=== PATIENT | male | born 1960 | race African-American/Black ===

== ENCOUNTER 2016-05-24 13:40 | Inpatient (IN) | payer OTHER ==
[~2016-05-24] VITALS: Ht 188 cm; Wt 79.6 kg
[2016-05-24] VITALS (12 sets, daily range): BP systolic 91–132; BP diastolic 68–89
[~2016-05-24 13:40] MED LIST: ALBU2.5V5 NEB; LISI-334 PO; LISI1TAB3 PO; PRED-220 PO; PRED5TAB PO; VENTOLIN HFA18 GM INH
[2016-05-24] MEDS ORDERED: 0.9 % SODIUM CHLORIDE 10 ML DISP.SYRIN. IV PRN (14:30)
[2016-05-24] MEDS ORDERED: ONDANSETRON PF 4 MG/2 ML VIAL. IV PRN ×2 (14:30→16:15)
[2016-05-24] MEDS ORDERED: CALCIUM CARBONATE 500 MG TAB.CHEW PO PRN (14:30)
[2016-05-24] MEDS: HALOPERIDOL LACT 5 MG/ML VIAL. IVP PRN ×2 (14:37→23:18)
[2016-05-24] MEDS ORDERED: CLONIDINE HCL 0.1 MG TABLET PO PRN (14:45)
[2016-05-24] MEDS ORDERED: LISI40TA PO (15:20)
[2016-05-24] MEDS ORDERED: POTA20TA4 PO (15:20)
[2016-05-24] MEDS ORDERED: HYDR-2679 PO (15:21)
[2016-05-24] MEDS: METRONIDAZOLE 500mg PREMIX 100 ML IV SCH ×2 (15:24→22:25)
--- NOTE | 2016-05-24 16:00 | HP ---
ADMIT DATE: 05/24/2016 CHIEF COMPLAINT: Ascites secondary to alcoholic cirrhosis, C. diff colitis, alcohol withdrawal. HISTORY OF PRESENT ILLNESS: The patient is a 56-year-old gentleman who initially presented to the Emergency Room at [facility] with confusion and abdominal pain due to massive ascites. He was admitted there, eventually, ascites was tapped with almost 3 liters withdrawn. However, the patient developed diarrhea, which were shown to be C. diff positive. He was transferred to [facility] for intensive care. PAST MEDICAL HISTORY: Alcoholic cirrhosis, recurrent ascites, hypertension, COPD. FAMILY HISTORY: Unknown, patient cannot elaborate secondary to confusion. SOCIAL HISTORY: Lives with his . According to him, drinks 2-1/2 liters of gin a day, quit "2 days ago." Tobacco use, 2 packs a day according to [facility] records. ALLERGIES: Penicillin and sulfa. MEDICATIONS: Reconciled with meds at [facility]. REVIEW OF SYSTEMS: The patient denies pain, falls asleep during questioning. PHYSICAL EXAMINATION: VITAL SIGNS: Currently show blood pressure of 109/76, pulse at 104. He is afebrile. GENERAL: This is a lethargic, partially obtunded 56-year-old gentleman, well nourished. HEENT: Shows positive icterus. NECK: Supple. LUNGS: Clear anteriorly. CARDIOVASCULAR: Regular rate and rhythm. ABDOMEN: Mildly distended, soft, nontender. EXTREMITIES: Show no edema. SKIN: Warm, soft and dry. LABORATORY DATA: From [facility] were reviewed. ASSESSMENT AND PLAN: The patient is a 56-year-old gentleman with alcoholic cirrhosis, ongoing alcohol abuse and now C. diff. 1. For C. diff colitis, he will be started on Flagyl t.i.d. Isolation precautions. 2. Alcoholic withdrawal in progress. CIWA protocol has been started. He will receive Haldol p.r.n. as well. May need one-to-one sitter due to restlessness and agitation. 3. Alcoholic cirrhosis is severe with history of varices, recurrent ascites as well as pancytopenia. We will have to monitor with low platelets. 4. The patient had a fairly high D-dimer at [facility] with a nondiagnostic CTA. Lovenox had been started empirically at therapeutic doses. VQ scan by report has been low probability. We will have to ascertain the results. In either case, current platelet count of 49 precludes anticoagulation. 5. Macrocytic anemia is most likely secondary to acute and chronic alcohol use with bone marrow toxicity. We will replete B12 and folate. 6. Prophylaxis will be instituted with proton pump inhibitor. 7. Recurrent ascites. He did have a recent tap done with no adequate control of discomfort. No plans for repeat unless further accumulation occurs. MARIZA SANTIZO MD DR: UR/nts JOB#: [id number] / [id number] MOHIT
[2016-05-24] MEDS: [UNRECOGNIZED DRUG - REMARK] IV SCH ×3 (16:44)
[2016-05-24] MEDS ORDERED: ENOXAPARIN 40 MG/0.4 ML DISP.SYRIN. SQ SCH (21:00)
[2016-05-24] MEDS: FAMOTIDINE 20 MG TABLET. PO SCH (21:43)
[2016-05-24] MEDS: IPRATRPIUM/ALBUTEROL 0.5/2.5MG 3 ML NEBU. NEB PRN (23:46)
[2016-05-25] VITALS (16 sets, daily range): BP systolic 92–132; BP diastolic 61–99
[2016-05-25] MEDS: HALOPERIDOL LACT 5 MG/ML VIAL. IVP PRN ×2 (01:05→03:58)
[2016-05-25] MEDS: LORAZEPAM 1 MG TABLET. PO PRN (04:18)
[2016-05-25] MEDS: HYDROCODONE/APAP 5/325MG TABLET. PO PRN ×3 (05:19→21:59)
[2016-05-25] MEDS: METRONIDAZOLE 500mg PREMIX 100 ML IV SCH ×4 (05:51→21:29)
[2016-05-25] MEDS: [UNRECOGNIZED DRUG - REMARK] IV SCH ×3 (08:23)
[2016-05-25] MEDS: SPIRONOLACTONE 25 MG TABLET PO SCH (08:25)
[2016-05-25] MEDS: FAMOTIDINE 20 MG TABLET. PO SCH ×2 (08:25→21:28)
[2016-05-25 08:26] LABS: BASO # 0.1 x10^3/uL (0.0-0.2); BASO % 1 % (0-3); EOS % 1 % (0-3); HEMATOCRIT 32.2 % (39.0-53.0); HEMOGLOBIN 10.5 g/dL (13.0-17.5); LYMPH # 2.2 x10^3/uL (1.0-4.8); LYMPH % 28 % (24-48); MEAN CORPUSCULAR HEMOGLOBIN 36 pg (25-35); MEAN CORPUSCULAR HGB CONC 33 g/dL (31-37); MEAN CORPUSCULAR VOLUME 110 fL (79-100); MONO % 18 % (0-9); NEUT % 53 % (31-73); PLATELET COUNT 58 x10^3/uL (140-400); RED BLOOD COUNT 2.92 x10^6/uL (4.30-5.70); RED CELL DISTRIBUTION WIDTH 17.3 % (11.5-14.5); WHITE BLOOD COUNT 7.7 x10^3/uL (4.0-11.0)
[2016-05-25 08:36] LABS: ALBUMIN 1.7 g/dL (3.4-5.0); ALBUMIN/GLOBULIN RATIO 0.4 (1.0-1.7); CALCIUM 7.3 mg/dL (8.5-10.1); CREATININE 1.3 mg/dL (0.7-1.3); GFR 68.6; INR 1.8 (0.8-1.1); POTASSIUM 3.5 mmol/L (3.5-5.1); PROTHROMBIN TIME PATIENT 20.1 SEC (11.7-14.0); TOTAL BILIRUBIN 3.4 mg/dL (0.2-1.0); TOTAL PROTEIN 5.8 g/dL (6.4-8.2)
--- NOTE | 2016-05-25 14:46 | PDOC ---
PROGRESS NOTES Chief Complaint Chief Complaint EtOH cirrhosis w/ ascites EtOH W/D C. diff colitis ASSESSMENT AND PLAN: 1. EtOH W/D: on CIWA protocol. banana bag. !:1 sitter 2. C. diff colitis: improving. on flagyl 3. Ascites: s/p tap at [facility] 4. Pancytopenia: 2/2 EtOH abuse. stable at his time 5. Anemia: macrocytic. prob EtOH related. B12/folate pending 6. Hyperbilirubinemia: worsening. prob EtOH related. monitor 7. Protein malnutrition: severe. suspect diet related as well as poor hepatic fxn. high protein diet 8. Elevated DDimer: nondiagnostic CTA and low prob VQ scan at [facility]. empiric ( or even prophylactic) lovenox contraindicated with plts around 50 9. GI prophylaxis: PPI Vitals Vitals Vital Signs Date Time Temp Pulse Resp B/P Pulse Ox O2 Delivery O2 Flow Rate FiO2 05/25/16 12:00 98.1 103 20 114/78 97 Room Air 98.1 Physical Exam General: Other (lethargic (ativan)) Heart: Regular rate Lungs: Clear Abdomen: Soft, No tenderness Extremities: No clubbing, No edema Skin: No rashes Labs LABS Laboratory Tests Test 05/25/16 08:15 White Blood Count 7.7x10^3/uL (4.0-11.0) Red Blood Count 2.92x10^6/uL (4.30-5.70) Hemoglobin 10.5g/dL (13.0-17.5) Hematocrit 32.2% (39.0-53.0) Mean Corpuscular Volume 110fL (79-100) Mean Corpuscular Hemoglobin 36pg (25-35) Mean Corpuscular Hemoglobin Concent 33g/dL (31-37) Red Cell Distribution Width 17.3% (11.5-14.5) Platelet Count 58x10^3/uL (140-400) Neutrophils (%) (Auto) 53% (31-73) Lymphocytes (%) (Auto) 28% (24-48) Monocytes (%) (Auto) 18% (0-9) Eosinophils (%) (Auto) 1% (0-3) Basophils (%) (Auto) 1% (0-3) Neutrophils # (Auto) 4.1x10^3uL (1.8-7.7) Lymphocytes # (Auto) 2.2x10^3/uL (1.0-4.8) Monocytes # (Auto) 1.4x10^3/uL (0.0-1.1) Eosinophils # (Auto) 0.1x10^3/uL (0.0-0.7) Basophils # (Auto) 0.1x10^3/uL (0.0-0.2) Prothrombin Time 20.1SEC (11.7-14.0) Prothromb Time International Ratio 1.8 (0.8-1.1) Sodium Level 138mmol/L (136-145) Potassium Level 3.5mmol/L (3.5-5.1) Chloride Level 104mmol/L (98-107) Carbon Dioxide Level 28mmol/L (21-32) Anion Gap 6 (6-14) Blood Urea Nitrogen 3mg/dL (8-26) Creatinine 1.3mg/dL (0.7-1.3) Estimated GFR (Cockcroft-Gault) 68.6 BUN/Creatinine Ratio 2 (6-20) Glucose Level 86mg/dL (70-99) Calcium Level 7.3mg/dL (8.5-10.1) Magnesium Level 1.6mg/dL (1.8-2.4) Total Bilirubin 3.4mg/dL (0.2-1.0) Aspartate Amino Transf (AST/SGOT) 134U/L (15-37) Alanine Aminotransferase (ALT/SGPT) 25U/L (16-63) Alkaline Phosphatase 176U/L (46-116) Total Protein 5.8g/dL (6.4-8.2) Albumin 1.7g/dL (3.4-5.0) Albumin/Globulin Ratio 0.4 (1.0-1.7) Review of Systems Review of Systems lethargic. no c/o Comment Review of Relevant I have reviewed the following items mary (where applicable) has been applied. Labs Laboratory Tests Test 05/25/16 08:15 White Blood Count 7.7x10^3/uL (4.0-11.0) Red Blood Count 2.92x10^6/uL (4.30-5.70) Hemoglobin 10.5g/dL (13.0-17.5) Hematocrit 32.2% (39.0-53.0) Mean Corpuscular Volume 110fL (79-100) Mean Corpuscular Hemoglobin 36pg (25-35) Mean Corpuscular Hemoglobin Concent 33g/dL (31-37) Red Cell Distribution Width 17.3% (11.5-14.5) Platelet Count 58x10^3/uL (140-400) Neutrophils (%) (Auto) 53% (31-73) Lymphocytes (%) (Auto) 28% (24-48) Monocytes (%) (Auto) 18% (0-9) Eosinophils (%) (Auto) 1% (0-3) Basophils (%) (Auto) 1% (0-3) Neutrophils # (Auto) 4.1x10^3uL (1.8-7.7) Lymphocytes # (Auto) 2.2x10^3/uL (1.0-4.8) Monocytes # (Auto) 1.4x10^3/uL (0.0-1.1) Eosinophils # (Auto) 0.1x10^3/uL (0.0-0.7) Basophils # (Auto) 0.1x10^3/uL (0.0-0.2) Prothrombin Time 20.1SEC (11.7-14.0) Prothromb Time International Ratio 1.8 (0.8-1.1) Sodium Level 138mmol/L (136-145) Potassium Level 3.5mmol/L (3.5-5.1) Chloride Level 104mmol/L (98-107) Carbon Dioxide Level 28mmol/L (21-32) Anion Gap 6 (6-14) Blood Urea Nitrogen 3mg/dL (8-26) Creatinine 1.3mg/dL (0.7-1.3) Estimated GFR (Cockcroft-Gault) 68.6 BUN/Creatinine Ratio 2 (6-20) Glucose Level 86mg/dL (70-99) Calcium Level 7.3mg/dL (8.5-10.1) Magnesium Level 1.6mg/dL (1.8-2.4) Total Bilirubin 3.4mg/dL (0.2-1.0) Aspartate Amino Transf (AST/SGOT) 134U/L (15-37) Alanine Aminotransferase (ALT/SGPT) 25U/L (16-63) Alkaline Phosphatase 176U/L (46-116) Total Protein 5.8g/dL (6.4-8.2) Albumin 1.7g/dL (3.4-5.0) Albumin/Globulin Ratio 0.4 (1.0-1.7) Laboratory Tests Test 05/25/16 08:15 White Blood Count 7.7x10^3/uL (4.0-11.0) Red Blood Count 2.92x10^6/uL (4.30-5.70) Hemoglobin 10.5g/dL (13.0-17.5) Hematocrit 32.2% (39.0-53.0) Mean Corpuscular Volume 110fL (79-100) Mean Corpuscular Hemoglobin 36pg (25-35) Mean Corpuscular Hemoglobin Concent 33g/dL (31-37) Red Cell Distribution Width 17.3% (11.5-14.5) Platelet Count 58x10^3/uL (140-400) Neutrophils (%) (Auto) 53% (31-73) Lymphocytes (%) (Auto) 28% (24-48) Monocytes (%) (Auto) 18% (0-9) Eosinophils (%) (Auto) 1% (0-3) Basophils (%) (Auto) 1% (0-3) Neutrophils # (Auto) 4.1x10^3uL (1.8-7.7) Lymphocytes # (Auto) 2.2x10^3/uL (1.0-4.8) Monocytes # (Auto) 1.4x10^3/uL (0.0-1.1) Eosinophils # (Auto) 0.1x10^3/uL (0.0-0.7) Basophils # (Auto) 0.1x10^3/uL (0.0-0.2) Prothrombin Time 20.1SEC (11.7-14.0) Prothromb Time International Ratio 1.8 (0.8-1.1) Sodium Level 138mmol/L (136-145) Potassium Level 3.5mmol/L (3.5-5.1) Chloride Level 104mmol/L (98-107) Carbon Dioxide Level 28mmol/L (21-32) Anion Gap 6 (6-14) Blood Urea Nitrogen 3mg/dL (8-26) Creatinine 1.3mg/dL (0.7-1.3) Estimated GFR (Cockcroft-Gault) 68.6 BUN/Creatinine Ratio 2 (6-20) Glucose Level 86mg/dL (70-99) Calcium Level 7.3mg/dL (8.5-10.1) Magnesium Level 1.6mg/dL (1.8-2.4) Total Bilirubin 3.4mg/dL (0.2-1.0) Aspartate Amino Transf (AST/SGOT) 134U/L (15-37) Alanine Aminotransferase (ALT/SGPT) 25U/L (16-63) Alkaline Phosphatase 176U/L (46-116) Total Protein 5.8g/dL (6.4-8.2) Albumin 1.7g/dL (3.4-5.0) Albumin/Globulin Ratio 0.4 (1.0-1.7) Medications Current Medications Haloperidol Lactate (Haldol) 5 mg PRN Q2HRS PRN IVP AGITATION Last administered on 05/25/16 03:58; Start 05/24/16 at 14:30 Ondansetron HCl (Zofran) 4 mg PRN Q6HRS PRN IV NAUSEA/VOMITING; Start 05/24/16 at 14:30 Calcium Carbonate/ Glycine (Tums) 500 mg PRN Q3HRS PRN PO HEARTBURN / GAS; Start 05/24/16 at 14:30 Famotidine (Pepcid) 20 mg BID PO Last administered on 05/25/16 08:25; Start 05/24/16 at 21:00 Enoxaparin Sodium (Lovenox 40mg Syringe) 80 mg BID SQ ; Start 05/24/16 at 21:00; Status UNV Sodium Chloride (Normal Saline Flush) 3 ml QSHIFT PRN IV AFTER MEDS AND BLOOD DRAWS; Start 05/24/16 at 14:30 Acetaminophen/ Hydrocodone Bitart 1 tab 1 tab PRN Q4HRS PRN PO pain Last administered on 05/25/16 05:19; Start 05/24/16 at 14:30 Multivitamins/ Minerals/Thiamine HCl/Sodium Chloride (Infuvite Adult/ Iv Sodium Chloride 0.9% 1000ml Bag) 1,011 ml @ 99.981 mls/ hr DAILY IV Last administered on 05/25/16 08:23; Start 05/24/16 at 15:00; Stop 05/30/16 at 14:59 Lorazepam (Ativan) 4 mg PRN Q1HR PRN PO For CIWA 8-14 Last administered on 04:18; Start 05/24/16 at 14:45 Lorazepam (Ativan) 8 mg PRN Q1HR PRN PO For CIWA 15 or greater; Start 05/24/16 at 14:45 Clonidine HCl 0.1 mg 0.1 mg PRN Q1HR PRN PO SBP > 180 or DBP > 100, MRX3; Start 05/24/16 at 14:45 Metronidazole (FLAGYL 500Mmg PREMIX) 100 ml @ 100 mls/hr Q8HRS IV Last administered on 05/25/16 05:51; Start 05/24/16 at 15:00 Diphenhydramine HCl (Benadryl) 25 mg PRN Q6HRS PRN IVP ITCHING; Start 05/24/16 at 16:15 Albuterol/ Ipratropium (Duoneb) 3 ml QIDPRN PRN NEB WHEEZING Last administered on 05/24/16 23:46; Start 05/24/16 at 16:15 Ondansetron HCl (Zofran) 4 mg PRN Q6HRS PRN IV NAUSEA/VOMITING; Start 05/24/16 at 16:15 Spironolactone (Aldactone) 100 mg DAILY PO Last administered on 05/25/16 08:25 ; Start 05/25/16 at 09:00 Active Scripts Active Reported Lortab 7.5-325 mg Tablet (Hydrocodone/Acetaminophen) 1 Each Tablet 1 Tab PO PRN Q6HRS PRN Klor-Con M20 (Potassium Chloride) 20 Meq Tab.er.prt 20 Meq PO BID Lisinopril 40 Mg Tablet 40 Mg PO DAILY Vitals/I & O Vital Sign - Last 24 Hours 05/24/16 05/24/16 05/24/16 05/24/16 15:00 16:00 16:08 17:00 Temp 99.6 99.6 Pulse 105 105 105 Resp 16 B/P 109/76 103/72 106/78 Pulse Ox 94 93 93 O2 Delivery Room Air Room Air Room Air Room Air 05/24/16 05/24/16 05/24/16 05/24/16 18:01 18:36 19:10 19:54 Pulse 105 103 103 Resp 16 16 15 B/P 106/75 112/72 103/80 Pulse Ox 94 94 94 O2 Delivery Room Air Room Air Room Air Room Air 05/24/16 05/24/16 05/24/16 05/24/16 20:02 20:02 21:06 22:00 Temp 99.5 99.5 Pulse 108 106 102 Resp 18 17 20 B/P 91/68 100/70 97/72 Pulse Ox 96 96 95 96 O2 Delivery Room Air Room Air Room Air Room Air 05/24/16 05/24/16 05/25/16 05/25/16 23:00 23:38 00:06 00:12 Temp 98.8 98.8 Pulse 105 105 Resp 16 17 B/P 106/74 102/70 Pulse Ox 94 96 93 O2 Delivery Room Air Room Air Room Air Room Air 05/25/16 05/25/16 05/25/16 05/25/16 00:59 01:59 03:02 04:02 Temp 99.5 99.5 99.5 99.5 Pulse 110 112 95 105 Resp 18 19 14 23 B/P 101/67 92/74 102/73 116/84 Pulse Ox 94 95 96 94 O2 Delivery Room Air Room Air Room Air Room Air 05/25/16 05/25/16 05/25/16 05/25/16 04:02 05:00 05:19 06:02 Pulse 95 107 Resp 21 20 18 B/P 110/73 96/74 Pulse Ox 94 94 94 O2 Delivery Room Air Room Air Room Air Room Air 05/25/16 05/25/16 05/25/16 05/25/16 06:04 07:00 08:00 08:00 Temp 99.0 99.0 Pulse 98 94 Resp 18 14 13 B/P 95/61 93/69 Pulse Ox 94 96 O2 Delivery Room Air Room Air Room Air Room Air 05/25/16 05/25/16 05/25/16 05/25/16 09:00 10:00 11:00 12:00 Temp 98.1 98.1 Pulse 99 87 101 103 Resp 17 14 24 20 B/P 113/78 113/79 109/83 114/78 Pulse Ox 95 97 95 97 O2 Delivery Room Air Room Air Room Air Room Air Intake and Output 05/24/16 05/24/16 05/25/16 15:00 23:00 07:00 Intake Total 220 ml 1985 ml Output Total 1 ml 201 ml Balance -1 ml 19 ml 1985 ml MARIZA SANTIZO MD May 25, 2016 14:46
[2016-05-25] MEDS: IPRATRPIUM/ALBUTEROL 0.5/2.5MG 3 ML NEBU. NEB PRN (20:30)
[2016-05-26] MEDS: IPRATRPIUM/ALBUTEROL 0.5/2.5MG 3 ML NEBU. NEB PRN ×3 (01:51→15:57)
[2016-05-26 01:54] VITALS: BP 136/96
[2016-05-26] MEDS: DIPHENHYDRAMINE 50 MG/ML VIAL IVP PRN (02:40)
[2016-05-26] MEDS: METRONIDAZOLE 500mg PREMIX 100 ML IV SCH ×3 (06:03→20:52)
[2016-05-26 06:15] LABS: FOLIC ACID 6.9 ng/mL (>3.0)
[2016-05-26 07:07] VITALS: BP 110/79
[2016-05-26] MEDS: [UNRECOGNIZED DRUG - REMARK] IV SCH ×3 (09:23)
[2016-05-26] MEDS: FAMOTIDINE 20 MG TABLET. PO SCH ×2 (09:23→20:53)
[2016-05-26] MEDS: SPIRONOLACTONE 25 MG TABLET PO SCH (09:23)
[2016-05-26] MEDS: LORAZEPAM 1 MG TABLET. PO PRN ×2 (09:24→12:59)
[2016-05-26 10:48] VITALS: BP 96/67
[2016-05-26 15:00] VITALS: BP 110/75
[2016-05-26] MEDS: HALOPERIDOL LACT 5 MG/ML VIAL. IVP PRN ×3 (15:07→22:54)
--- NOTE | 2016-05-26 15:14 | PDOC ---
PROGRESS NOTES Chief Complaint Chief Complaint EtOH cirrhosis w/ ascites EtOH W/D C. diff colitis ASSESSMENT AND PLAN: 1. EtOH W/D: on CIWA protocol, switched to IV rather than PO. banana bag. 1: 1 sitter 2. C. diff colitis: improving. on flagyl 3. Ascites: s/p tap at [facility]. recurrent 4. Pancytopenia: 2/2 EtOH abuse. stable at his time 5. Anemia: macrocytic. prob EtOH related. B12/folate WNL 6. Hyperbilirubinemia: prob EtOH related. monitor 7. Protein malnutrition: severe. suspect diet related as well as poor hepatic fxn. high protein diet 8. Elevated DDimer: nondiagnostic CTA and low prob VQ scan at [facility]. empiric ( or even prophylactic) lovenox contraindicated with plts around 50 9. GI prophylaxis: PPI Vitals Vitals Vital Signs Date Time Temp Pulse Resp B/P Pulse Ox O2 Delivery O2 Flow Rate FiO2 05/26/16 12:03 Room Air 05/26/16 10:48 99.0 105 20 96/67 97 99.0 Physical Exam Physical Exam awake, lethargic, not following commands General: Other (lethargic (ativan)) Heart: Regular rate Lungs: Clear Abdomen: Soft, No tenderness, Other (massive ascites) Extremities: No clubbing, No edema Skin: No rashes Review of Systems Review of Systems wants to get up, no pain Comment Review of Relevant I have reviewed the following items mary (where applicable) has been applied. Labs Laboratory Tests Test 05/25/16 08:10 05/25/16 08:15 Vitamin B12 Level 879pg/mL (211-946) Folic Acid (LAB) 6.9ng/mL (>3.0) White Blood Count 7.7x10^3/uL (4.0-11.0) Red Blood Count 2.92x10^6/uL (4.30-5.70) Hemoglobin 10.5g/dL (13.0-17.5) Hematocrit 32.2% (39.0-53.0) Mean Corpuscular Volume 110fL (79-100) Mean Corpuscular Hemoglobin 36pg (25-35) Mean Corpuscular Hemoglobin Concent 33g/dL (31-37) Red Cell Distribution Width 17.3% (11.5-14.5) Platelet Count 58x10^3/uL (140-400) Neutrophils (%) (Auto) 53% (31-73) Lymphocytes (%) (Auto) 28% (24-48) Monocytes (%) (Auto) 18% (0-9) Eosinophils (%) (Auto) 1% (0-3) Basophils (%) (Auto) 1% (0-3) Neutrophils # (Auto) 4.1x10^3uL (1.8-7.7) Lymphocytes # (Auto) 2.2x10^3/uL (1.0-4.8) Monocytes # (Auto) 1.4x10^3/uL (0.0-1.1) Eosinophils # (Auto) 0.1x10^3/uL (0.0-0.7) Basophils # (Auto) 0.1x10^3/uL (0.0-0.2) Prothrombin Time 20.1SEC (11.7-14.0) Prothromb Time International Ratio 1.8 (0.8-1.1) Sodium Level 138mmol/L (136-145) Potassium Level 3.5mmol/L (3.5-5.1) Chloride Level 104mmol/L (98-107) Carbon Dioxide Level 28mmol/L (21-32) Anion Gap 6 (6-14) Blood Urea Nitrogen 3mg/dL (8-26) Creatinine 1.3mg/dL (0.7-1.3) Estimated GFR (Cockcroft-Gault) 68.6 BUN/Creatinine Ratio 2 (6-20) Glucose Level 86mg/dL (70-99) Calcium Level 7.3mg/dL (8.5-10.1) Magnesium Level 1.6mg/dL (1.8-2.4) Total Bilirubin 3.4mg/dL (0.2-1.0) Aspartate Amino Transf (AST/SGOT) 134U/L (15-37) Alanine Aminotransferase (ALT/SGPT) 25U/L (16-63) Alkaline Phosphatase 176U/L (46-116) Total Protein 5.8g/dL (6.4-8.2) Albumin 1.7g/dL (3.4-5.0) Albumin/Globulin Ratio 0.4 (1.0-1.7) Medications Current Medications Haloperidol Lactate (Haldol) 5 mg PRN Q2HRS PRN IVP AGITATION Last administered on 05/25/16 03:58; Start 05/24/16 at 14:30 Ondansetron HCl (Zofran) 4 mg PRN Q6HRS PRN IV NAUSEA/VOMITING; Start 05/24/16 at 14:30 Calcium Carbonate/ Glycine (Tums) 500 mg PRN Q3HRS PRN PO HEARTBURN / GAS; Start 05/24/16 at 14:30 Famotidine (Pepcid) 20 mg BID PO Last administered on 05/26/16 09:23; Start 05/24/16 at 21:00 Enoxaparin Sodium (Lovenox 40mg Syringe) 80 mg BID SQ ; Start 05/24/16 at 21:00; Status UNV Sodium Chloride (Normal Saline Flush) 3 ml QSHIFT PRN IV AFTER MEDS AND BLOOD DRAWS; Start 05/24/16 at 14:30 Acetaminophen/ Hydrocodone Bitart 1 tab 1 tab PRN Q4HRS PRN PO pain Last administered on 05/25/16 21:59; Start 05/24/16 at 14:30 Multivitamins/ Minerals/Thiamine HCl/Sodium Chloride (Infuvite Adult/ Iv Sodium Chloride 0.9% 1000ml Bag) 1,011 ml @ 99.981 mls/ hr DAILY IV Last administered on 05/26/16 09:23; Start 05/24/16 at 15:00; Stop 05/30/16 at 14:59 Lorazepam (Ativan) 4 mg PRN Q1HR PRN PO For CIWA 8-14 Last administered on 12:59; Start 05/24/16 at 14:45 Lorazepam (Ativan) 8 mg PRN Q1HR PRN PO For CIWA 15 or greater; Start 05/24/16 at 14:45 Clonidine HCl 0.1 mg 0.1 mg PRN Q1HR PRN PO SBP > 180 or DBP > 100, MRX3; Start 05/24/16 at 14:45 Metronidazole (FLAGYL 500Mmg PREMIX) 100 ml @ 100 mls/hr Q8HRS IV Last administered on 05/26/16 14:33; Start 05/24/16 at 15:00 Diphenhydramine HCl (Benadryl) 25 mg PRN Q6HRS PRN IVP ITCHING Last administered on 05/26/16 02:40; Start 05/24/16 at 16:15 Albuterol/ Ipratropium (Duoneb) 3 ml QIDPRN PRN NEB WHEEZING Last administered on 05/26/16 07:51; Start 05/24/16 at 16:15 Ondansetron HCl (Zofran) 4 mg PRN Q6HRS PRN IV NAUSEA/VOMITING; Start 05/24/16 at 16:15 Spironolactone (Aldactone) 100 mg DAILY PO Last administered on 05/26/16 09:23 ; Start 05/25/16 at 09:00 Active Scripts Active Reported Lortab 7.5-325 mg Tablet (Hydrocodone/Acetaminophen) 1 Each Tablet 1 Tab PO PRN Q6HRS PRN Klor-Con M20 (Potassium Chloride) 20 Meq Tab.er.prt 20 Meq PO BID Lisinopril 40 Mg Tablet 40 Mg PO DAILY Vitals/I & O Vital Sign - Last 24 Hours 05/25/16 05/25/16 05/25/16 05/25/16 15:26 16:00 17:44 19:48 Temp 98.6 98.6 98.6 98.6 Pulse 106 114 Resp 20 31 20 B/P 116/82 113/77 Pulse Ox 96 96 97 O2 Delivery Room Air Room Air Room Air Room Air 05/25/16 05/25/16 05/25/16 05/25/16 19:59 20:17 20:32 21:59 Temp 97.8 97.8 Pulse 109 Resp 22 20 18 B/P 132/99 Pulse Ox 95 95 O2 Delivery Room Air Room Air Room Air Room Air 05/25/16 05/25/16 05/26/16 05/26/16 23:07 23:59 01:51 01:54 Temp 98.3 98.3 Pulse 105 Resp 18 18 22 B/P 136/96 Pulse Ox 95 95 O2 Delivery Room Air Room Air Room Air Room Air 05/26/16 05/26/16 05/26/16 05/26/16 04:08 07:07 07:51 08:00 Temp 98.8 98.8 Pulse 95 Resp 18 B/P 110/79 Pulse Ox 96 O2 Delivery Room Air Room Air Room Air Room Air 05/26/16 05/26/16 10:48 12:03 Temp 99.0 99.0 Pulse 105 Resp 20 B/P 96/67 Pulse Ox 97 O2 Delivery Room Air Room Air Intake and Output 05/25/16 05/25/16 05/26/16 15:00 23:00 07:00 Intake Total 330 ml 1585 ml 200 ml Output Total 200 ml 200 ml Balance 330 ml 1385 ml 0 ml MARIZA SANTIZO MD May 26, 2016 15:14
[2016-05-26] MEDS: LORAZEPAM 2 MG/ML VIAL IV PRN ×2 (18:04→20:53)
[2016-05-26 19:00] VITALS: BP 117/72
[2016-05-26] MEDS: HYDROCODONE/APAP 5/325MG TABLET. PO PRN (20:53)
[2016-05-26 23:02] VITALS: BP 116/78
[2016-05-27] MEDS: LORAZEPAM 2 MG/ML VIAL IV PRN ×6 (04:02→23:38)
[2016-05-27] MEDS: IPRATRPIUM/ALBUTEROL 0.5/2.5MG 3 ML NEBU. NEB PRN ×3 (04:14→22:53)
[2016-05-27 05:47] LABS: BASO # 0.1 x10^3/uL (0.0-0.2); BASO % 1 % (0-3); EOS % 2 % (0-3); HEMATOCRIT 32.8 % (39.0-53.0); LYMPH # 2.4 x10^3/uL (1.0-4.8); LYMPH % 30 % (24-48); MEAN CORPUSCULAR HEMOGLOBIN 37 pg (25-35); MEAN CORPUSCULAR HGB CONC 34 g/dL (31-37); MEAN CORPUSCULAR VOLUME 109 fL (79-100); MONO % 23 % (0-9); NEUT % 44 % (31-73); PLATELET COUNT 83 x10^3/uL (140-400); RED BLOOD COUNT 2.99 x10^6/uL (4.30-5.70); RED CELL DISTRIBUTION WIDTH 16.7 % (11.5-14.5); WHITE BLOOD COUNT 8.1 x10^3/uL (4.0-11.0)
[2016-05-27 06:01] LABS: ALBUMIN 1.8 g/dL (3.4-5.0); ALBUMIN/GLOBULIN RATIO 0.5 (1.0-1.7); CALCIUM 7.3 mg/dL (8.5-10.1); CREATININE 1.2 mg/dL (0.7-1.3); GFR 75.2; POTASSIUM 3.4 mmol/L (3.5-5.1); TOTAL BILIRUBIN 2.7 mg/dL (0.2-1.0); TOTAL PROTEIN 5.6 g/dL (6.4-8.2)
[2016-05-27] MEDS: METRONIDAZOLE 500mg PREMIX 100 ML IV SCH ×3 (06:47→20:57)
[2016-05-27 07:23] VITALS: BP 118/86
[2016-05-27] MEDS: HYDROCODONE/APAP 5/325MG TABLET. PO PRN ×2 (07:49→20:20)
[2016-05-27] MEDS: [UNRECOGNIZED DRUG - REMARK] IV SCH ×3 (08:36)
[2016-05-27] MEDS: SPIRONOLACTONE 25 MG TABLET PO SCH (09:00)
[2016-05-27] MEDS: FAMOTIDINE 20 MG TABLET. PO SCH ×2 (09:00→20:27)
[2016-05-27 11:02] VITALS: BP 114/77
[2016-05-27 12:02] LABS: % EOS 1 % (0-5); PLT ESTIMATE DECREASED (ADEQUATE)
[2016-05-27 12:04] LABS: ANISOCYTOSIS SLIGHT; POIKILOCYTOSIS PRESENT; TARGET CELLS PRESENT
[2016-05-27 15:00] VITALS: BP 113/81
--- NOTE | 2016-05-27 15:37 | PDOC ---
PROGRESS NOTES Chief Complaint Chief Complaint EtOH cirrhosis w/ ascites EtOH W/D C. diff colitis ASSESSMENT AND PLAN: 1. EtOH W/D: on CIWA protocol, switched to IV rather than PO. banana bag. 1: 1 sitter 2. C. diff colitis: improving. on flagyl 3. Ascites: s/p tap at [facility]. recurrent 4. Pancytopenia: 2/2 EtOH abuse. plts recovering 5. Anemia: macrocytic. prob EtOH related. B12/folate WNL 6. Hyperbilirubinemia: prob EtOH related. sl improved 7. Protein malnutrition: severe. suspect diet related as well as poor hepatic fxn. high protein diet 8. Elevated DDimer: nondiagnostic CTA and low prob VQ scan at [facility]. 9. GI prophylaxis: PPI Vitals Vitals Vital Signs Date Time Temp Pulse Resp B/P Pulse Ox O2 Delivery O2 Flow Rate FiO2 05/27/16 11:02 98.0 96 16 114/77 94 Room Air 98.0 Physical Exam Physical Exam sedated, received Ativan for agitation General: Other (sedated (ativan)) Heart: Regular rate Lungs: Clear Abdomen: Soft, No tenderness, Other (massive ascites) Extremities: No clubbing, No edema Skin: No rashes Labs LABS Laboratory Tests Test 05/27/16 05:10 White Blood Count 8.1x10^3/uL (4.0-11.0) Red Blood Count 2.99x10^6/uL (4.30-5.70) Hemoglobin 11.0g/dL (13.0-17.5) Hematocrit 32.8% (39.0-53.0) Mean Corpuscular Volume 109fL (79-100) Mean Corpuscular Hemoglobin 37pg (25-35) Mean Corpuscular Hemoglobin Concent 34g/dL (31-37) Red Cell Distribution Width 16.7% (11.5-14.5) Platelet Count 83x10^3/uL (140-400) Neutrophils (%) (Auto) 44% (31-73) Lymphocytes (%) (Auto) 30% (24-48) Monocytes (%) (Auto) 23% (0-9) Eosinophils (%) (Auto) 2% (0-3) Basophils (%) (Auto) 1% (0-3) Neutrophils # (Auto) 3.6x10^3uL (1.8-7.7) Lymphocytes # (Auto) 2.4x10^3/uL (1.0-4.8) Monocytes # (Auto) 1.9x10^3/uL (0.0-1.1) Eosinophils # (Auto) 0.2x10^3/uL (0.0-0.7) Basophils # (Auto) 0.1x10^3/uL (0.0-0.2) Segmented Neutrophils % 63% (35-66) Band Neutrophils % 1% (0-9) Lymphocytes % 14% (24-48) Monocytes % 21% (0-10) Eosinophils % 1% (0-5) Platelet Estimate Decreased (ADEQUATE) Poikilocytosis Present Anisocytosis Slight Macrocytosis Slight Target Cells Present Sodium Level 138mmol/L (136-145) Potassium Level 3.4mmol/L (3.5-5.1) Chloride Level 104mmol/L (98-107) Carbon Dioxide Level 26mmol/L (21-32) Anion Gap 8 (6-14) Blood Urea Nitrogen 4mg/dL (8-26) Creatinine 1.2mg/dL (0.7-1.3) Estimated GFR (Cockcroft-Gault) 75.2 BUN/Creatinine Ratio 3 (6-20) Glucose Level 77mg/dL (70-99) Calcium Level 7.3mg/dL (8.5-10.1) Total Bilirubin 2.7mg/dL (0.2-1.0) Aspartate Amino Transf (AST/SGOT) 104U/L (15-37) Alanine Aminotransferase (ALT/SGPT) 23U/L (16-63) Alkaline Phosphatase 161U/L (46-116) Total Protein 5.6g/dL (6.4-8.2) Albumin 1.8g/dL (3.4-5.0) Albumin/Globulin Ratio 0.5 (1.0-1.7) Review of Systems Review of Systems sleeping/sedated Comment Review of Relevant I have reviewed the following items mary (where applicable) has been applied. Labs Laboratory Tests Test 05/27/16 05:10 White Blood Count 8.1x10^3/uL (4.0-11.0) Red Blood Count 2.99x10^6/uL (4.30-5.70) Hemoglobin 11.0g/dL (13.0-17.5) Hematocrit 32.8% (39.0-53.0) Mean Corpuscular Volume 109fL (79-100) Mean Corpuscular Hemoglobin 37pg (25-35) Mean Corpuscular Hemoglobin Concent 34g/dL (31-37) Red Cell Distribution Width 16.7% (11.5-14.5) Platelet Count 83x10^3/uL (140-400) Neutrophils (%) (Auto) 44% (31-73) Lymphocytes (%) (Auto) 30% (24-48) Monocytes (%) (Auto) 23% (0-9) Eosinophils (%) (Auto) 2% (0-3) Basophils (%) (Auto) 1% (0-3) Neutrophils # (Auto) 3.6x10^3uL (1.8-7.7) Lymphocytes # (Auto) 2.4x10^3/uL (1.0-4.8) Monocytes # (Auto) 1.9x10^3/uL (0.0-1.1) Eosinophils # (Auto) 0.2x10^3/uL (0.0-0.7) Basophils # (Auto) 0.1x10^3/uL (0.0-0.2) Segmented Neutrophils % 63% (35-66) Band Neutrophils % 1% (0-9) Lymphocytes % 14% (24-48) Monocytes % 21% (0-10) Eosinophils % 1% (0-5) Platelet Estimate Decreased (ADEQUATE) Poikilocytosis Present Anisocytosis Slight Macrocytosis Slight Target Cells Present Sodium Level 138mmol/L (136-145) Potassium Level 3.4mmol/L (3.5-5.1) Chloride Level 104mmol/L (98-107) Carbon Dioxide Level 26mmol/L (21-32) Anion Gap 8 (6-14) Blood Urea Nitrogen 4mg/dL (8-26) Creatinine 1.2mg/dL (0.7-1.3) Estimated GFR (Cockcroft-Gault) 75.2 BUN/Creatinine Ratio 3 (6-20) Glucose Level 77mg/dL (70-99) Calcium Level 7.3mg/dL (8.5-10.1) Total Bilirubin 2.7mg/dL (0.2-1.0) Aspartate Amino Transf (AST/SGOT) 104U/L (15-37) Alanine Aminotransferase (ALT/SGPT) 23U/L (16-63) Alkaline Phosphatase 161U/L (46-116) Total Protein 5.6g/dL (6.4-8.2) Albumin 1.8g/dL (3.4-5.0) Albumin/Globulin Ratio 0.5 (1.0-1.7) Laboratory Tests Test 05/27/16 05:10 White Blood Count 8.1x10^3/uL (4.0-11.0) Red Blood Count 2.99x10^6/uL (4.30-5.70) Hemoglobin 11.0g/dL (13.0-17.5) Hematocrit 32.8% (39.0-53.0) Mean Corpuscular Volume 109fL (79-100) Mean Corpuscular Hemoglobin 37pg (25-35) Mean Corpuscular Hemoglobin Concent 34g/dL (31-37) Red Cell Distribution Width 16.7% (11.5-14.5) Platelet Count 83x10^3/uL (140-400) Neutrophils (%) (Auto) 44% (31-73) Lymphocytes (%) (Auto) 30% (24-48) Monocytes (%) (Auto) 23% (0-9) Eosinophils (%) (Auto) 2% (0-3) Basophils (%) (Auto) 1% (0-3) Neutrophils # (Auto) 3.6x10^3uL (1.8-7.7) Lymphocytes # (Auto) 2.4x10^3/uL (1.0-4.8) Monocytes # (Auto) 1.9x10^3/uL (0.0-1.1) Eosinophils # (Auto) 0.2x10^3/uL (0.0-0.7) Basophils # (Auto) 0.1x10^3/uL (0.0-0.2) Segmented Neutrophils % 63% (35-66) Band Neutrophils % 1% (0-9) Lymphocytes % 14% (24-48) Monocytes % 21% (0-10) Eosinophils % 1% (0-5) Platelet Estimate Decreased (ADEQUATE) Poikilocytosis Present Anisocytosis Slight Macrocytosis Slight Target Cells Present Sodium Level 138mmol/L (136-145) Potassium Level 3.4mmol/L (3.5-5.1) Chloride Level 104mmol/L (98-107) Carbon Dioxide Level 26mmol/L (21-32) Anion Gap 8 (6-14) Blood Urea Nitrogen 4mg/dL (8-26) Creatinine 1.2mg/dL (0.7-1.3) Estimated GFR (Cockcroft-Gault) 75.2 BUN/Creatinine Ratio 3 (6-20) Glucose Level 77mg/dL (70-99) Calcium Level 7.3mg/dL (8.5-10.1) Total Bilirubin 2.7mg/dL (0.2-1.0) Aspartate Amino Transf (AST/SGOT) 104U/L (15-37) Alanine Aminotransferase (ALT/SGPT) 23U/L (16-63) Alkaline Phosphatase 161U/L (46-116) Total Protein 5.6g/dL (6.4-8.2) Albumin 1.8g/dL (3.4-5.0) Albumin/Globulin Ratio 0.5 (1.0-1.7) Medications Current Medications Haloperidol Lactate (Haldol) 5 mg PRN Q2HRS PRN IVP AGITATION Last administered on 05/26/16 22:54; Start 05/24/16 at 14:30 Ondansetron HCl (Zofran) 4 mg PRN Q6HRS PRN IV NAUSEA/VOMITING; Start 05/24/16 at 14:30; Stop 05/26/16 at 16:06; Status DC Calcium Carbonate/ Glycine (Tums) 500 mg PRN Q3HRS PRN PO HEARTBURN / GAS; Start 05/24/16 at 14:30 Famotidine (Pepcid) 20 mg BID PO Last administered on 05/27/16 09:00; Start 05/24/16 at 21:00 Enoxaparin Sodium (Lovenox 40mg Syringe) 80 mg BID SQ ; Start 05/24/16 at 21:00; Status UNV Sodium Chloride (Normal Saline Flush) 3 ml QSHIFT PRN IV AFTER MEDS AND BLOOD DRAWS; Start 05/24/16 at 14:30 Acetaminophen/ Hydrocodone Bitart 1 tab 1 tab PRN Q4HRS PRN PO pain Last administered on 05/27/16 07:49; Start 05/24/16 at 14:30 Multivitamins/ Minerals/Thiamine HCl/Sodium Chloride (Infuvite Adult/ Iv Sodium Chloride 0.9% 1000ml Bag) 1,011 ml @ 99.981 mls/ hr DAILY IV Last administered on 05/27/16 08:36; Start 05/24/16 at 15:00; Stop 05/30/16 at 14:59 Lorazepam (Ativan) 4 mg PRN Q1HR PRN PO For CIWA 8-14 Last administered on 12:59; Start 05/24/16 at 14:45 Lorazepam (Ativan) 8 mg PRN Q1HR PRN PO For CIWA 15 or greater; Start 05/24/16 at 14:45 Clonidine HCl 0.1 mg 0.1 mg PRN Q1HR PRN PO SBP > 180 or DBP > 100, MRX3; Start 05/24/16 at 14:45 Metronidazole (FLAGYL 500Mmg PREMIX) 100 ml @ 100 mls/hr Q8HRS IV Last administered on 05/27/16 14:35; Start 05/24/16 at 15:00 Diphenhydramine HCl (Benadryl) 25 mg PRN Q6HRS PRN IVP ITCHING Last administered on 05/26/16 02:40; Start 05/24/16 at 16:15 Albuterol/ Ipratropium (Duoneb) 3 ml QIDPRN PRN NEB WHEEZING Last administered on 05/27/16 04:14; Start 05/24/16 at 16:15 Ondansetron HCl (Zofran) 4 mg PRN Q6HRS PRN IV NAUSEA/VOMITING; Start 05/24/16 at 16:15 Spironolactone (Aldactone) 100 mg DAILY PO Last administered on 05/27/16 09:00 ; Start 05/25/16 at 09:00 Lorazepam (Ativan) 2 mg PRN Q1HR PRN IV For CIWA 8-14 Last administered on 11:19; Start 05/26/16 at 16:45 Lorazepam (Ativan) 4 mg PRN Q1HR PRN IV For CIWA 15 or greater; Start 05/26/16 at 16:45 Active Scripts Active Reported Lortab 7.5-325 mg Tablet (Hydrocodone/Acetaminophen) 1 Each Tablet 1 Tab PO PRN Q6HRS PRN Klor-Con M20 (Potassium Chloride) 20 Meq Tab.er.prt 20 Meq PO BID Lisinopril 40 Mg Tablet 40 Mg PO DAILY Vitals/I & O Vital Sign - Last 24 Hours 05/26/16 05/26/16 05/26/16 05/26/16 15:58 19:00 20:00 20:53 Temp 100.2 100.2 Pulse 107 Resp 20 18 B/P 117/72 Pulse Ox 94 O2 Delivery Room Air Room Air Room Air Room Air 05/26/16 05/27/16 05/27/16 05/27/16 23:02 04:15 07:23 07:33 Temp 97.8 98.5 97.8 98.5 Pulse 109 95 Resp 20 18 B/P 116/78 118/86 Pulse Ox 94 92 O2 Delivery Room Air Room Air Room Air Room Air 05/27/16 05/27/16 05/27/16 07:49 09:07 11:02 Temp 98.0 98.0 Pulse 96 Resp 20 16 B/P 114/77 Pulse Ox 94 O2 Delivery Room Air Room Air Room Air Intake and Output 05/26/16 05/26/16 05/27/16 15:00 23:00 07:00 Intake Total 1420 ml 1050 ml 300 ml Output Total 200 ml Balance 1220 ml 1050 ml 300 ml MARIZA SANTIZO MD May 27, 2016 15:37
[2016-05-27 19:10] VITALS: BP 120/86
[2016-05-27 22:42] VITALS: BP 115/76
[2016-05-27] MEDS: HALOPERIDOL LACT 5 MG/ML VIAL. IVP PRN (23:03)
[2016-05-28] MEDS ORDERED: ACETAMINOPHEN 325 MG TABLET. PO PRN (01:00)
[2016-05-28] MEDS: DIPHENHYDRAMINE 50 MG/ML VIAL IVP PRN (02:47)
[2016-05-28] MEDS: HYDROCODONE/APAP 5/325MG TABLET. PO PRN ×2 (02:48→22:28)
[2016-05-28] MEDS: LORAZEPAM 2 MG/ML VIAL IV PRN ×2 (02:48→09:27)
[2016-05-28 02:57] VITALS: BP 99/69
[2016-05-28] MEDS: ALBUTEROL SULFATE 2.5 MG/3 ML NEBU. NEB PRN ×4 (03:07→20:13)
[2016-05-28] MEDS: METRONIDAZOLE 500mg PREMIX 100 ML IV SCH ×2 (05:39→19:24)
[2016-05-28 07:15] VITALS: BP 103/75
[2016-05-28 07:16] LABS: BASO % 1 % (0-3); EOS % 2 % (0-3); HEMATOCRIT 29.9 % (39.0-53.0); HEMOGLOBIN 9.9 g/dL (13.0-17.5); LYMPH % 30 % (24-48); MEAN CORPUSCULAR HEMOGLOBIN 37 pg (25-35); MEAN CORPUSCULAR HGB CONC 33 g/dL (31-37); MEAN CORPUSCULAR VOLUME 112 fL (79-100); MONO % 26 % (0-9); NEUT % 41 % (31-73); PLATELET COUNT 83 x10^3/uL (140-400); RED BLOOD COUNT 2.68 x10^6/uL (4.30-5.70); RED CELL DISTRIBUTION WIDTH 16.1 % (11.5-14.5); WHITE BLOOD COUNT 6.8 x10^3/uL (4.0-11.0)
[2016-05-28 07:33] LABS: ALBUMIN 1.5 g/dL (3.4-5.0); ALBUMIN/GLOBULIN RATIO 0.4 (1.0-1.7); CALCIUM 7.1 mg/dL (8.5-10.1); CREATININE 1.1 mg/dL (0.7-1.3); GFR 83.2; POTASSIUM 3.1 mmol/L (3.5-5.1); TOTAL BILIRUBIN 2.1 mg/dL (0.2-1.0); TOTAL PROTEIN 5.1 g/dL (6.4-8.2)
[2016-05-28] MEDS: [UNRECOGNIZED DRUG - REMARK] IV SCH ×3 (09:23)
[2016-05-28] MEDS: FAMOTIDINE 20 MG TABLET. PO SCH ×2 (09:26→21:59)
[2016-05-28] MEDS: SPIRONOLACTONE 25 MG TABLET PO SCH (09:26)
[2016-05-28 11:00] VITALS: BP 120/88
[2016-05-28] MEDS ORDERED: POTASSIUM CHLORIDE 20 MEQ TABLET.ER. PO ONE ×2 (12:00→19:00)
--- NOTE | 2016-05-28 12:13 | PDOC ---
PROGRESS NOTES Chief Complaint Chief Complaint metabolic encephalopathy, acute w/. EtOH cirrhosis w/ ascites C. diff colitis 1. EtOH W/D: on CIWA protocol, switched to IV rather than PO. banana bag. 1: 1 sitter 2. C. diff colitis: improving. on flagyl 3. Ascites: s/p tap at [facility]. 4. Pancytopenia: 2/2 EtOH abuse. plts recovering 5. Anemia: macrocytic. prob EtOH related. B12/folate WNL 6. Hyperbilirubinemia: prob EtOH related. sl improved 7. Protein malnutrition: severe. suspect diet related as well as poor hepatic fxn. high protein diet 8. Elevated DDimer: nondiagnostic CTA and low prob VQ scan at [facility]. 9. GI prophylaxis: PPI History of Present Illness History of Present Illness feels better, would like to dc Vitals Vitals Vital Signs Date Time Temp Pulse Resp B/P Pulse Ox O2 Delivery O2 Flow Rate FiO2 05/28/16 11:28 96 Room Air 05/28/16 11:00 98.9 99 22 120/88 98.9 Physical Exam Physical Exam sedated, received Ativan for agitation General: Other (sedated (ativan)) Heart: Regular rate Lungs: Clear Abdomen: Soft, No tenderness, Other (massive ascites) Extremities: No clubbing, No edema Skin: No rashes Labs LABS Laboratory Tests Test 05/28/16 06:45 White Blood Count 6.8x10^3/uL (4.0-11.0) Red Blood Count 2.68x10^6/uL (4.30-5.70) Hemoglobin 9.9g/dL (13.0-17.5) Hematocrit 29.9% (39.0-53.0) Mean Corpuscular Volume 112fL (79-100) Mean Corpuscular Hemoglobin 37pg (25-35) Mean Corpuscular Hemoglobin Concent 33g/dL (31-37) Red Cell Distribution Width 16.1% (11.5-14.5) Platelet Count 83x10^3/uL (140-400) Neutrophils (%) (Auto) 41% (31-73) Lymphocytes (%) (Auto) 30% (24-48) Monocytes (%) (Auto) 26% (0-9) Eosinophils (%) (Auto) 2% (0-3) Basophils (%) (Auto) 1% (0-3) Neutrophils # (Auto) 2.8x10^3uL (1.8-7.7) Lymphocytes # (Auto) 2.0x10^3/uL (1.0-4.8) Monocytes # (Auto) 1.7x10^3/uL (0.0-1.1) Eosinophils # (Auto) 0.2x10^3/uL (0.0-0.7) Basophils # (Auto) 0.0x10^3/uL (0.0-0.2) Sodium Level 140mmol/L (136-145) Potassium Level 3.1mmol/L (3.5-5.1) Chloride Level 107mmol/L (98-107) Carbon Dioxide Level 27mmol/L (21-32) Anion Gap 6 (6-14) Blood Urea Nitrogen 6mg/dL (8-26) Creatinine 1.1mg/dL (0.7-1.3) Estimated GFR (Cockcroft-Gault) 83.2 BUN/Creatinine Ratio 5 (6-20) Glucose Level 79mg/dL (70-99) Calcium Level 7.1mg/dL (8.5-10.1) Total Bilirubin 2.1mg/dL (0.2-1.0) Aspartate Amino Transf (AST/SGOT) 76U/L (15-37) Alanine Aminotransferase (ALT/SGPT) 16U/L (16-63) Alkaline Phosphatase 126U/L (46-116) Total Protein 5.1g/dL (6.4-8.2) Albumin 1.5g/dL (3.4-5.0) Albumin/Globulin Ratio 0.4 (1.0-1.7) Assessment and Plan Assessmemt and Plan DC when able to philippe off 1:1 , impulsive problems, diarrhea impvoed needs wheelchair to walk Problems Medical Problems: (1) Ascites Status: Acute Problems: Comment Review of Relevant I have reviewed the following items mary (where applicable) has been applied. Labs Laboratory Tests Test 05/27/16 05:10 05/28/16 06:45 White Blood Count 8.1x10^3/uL (4.0-11.0) 6.8x10^3/uL (4.0-11.0) Red Blood Count 2.99x10^6/uL (4.30-5.70) 2.68x10^6/uL (4.30-5.70) Hemoglobin 11.0g/dL (13.0-17.5) 9.9g/dL (13.0-17.5) Hematocrit 32.8% (39.0-53.0) 29.9% (39.0-53.0) Mean Corpuscular Volume 109fL (79-100) 112fL (79-100) Mean Corpuscular Hemoglobin 37pg (25-35) 37pg (25-35) Mean Corpuscular Hemoglobin Concent 34g/dL (31-37) 33g/dL (31-37) Red Cell Distribution Width 16.7% (11.5-14.5) 16.1% (11.5-14.5) Platelet Count 83x10^3/uL (140-400) 83x10^3/uL (140-400) Neutrophils (%) (Auto) 44% (31-73) 41% (31-73) Lymphocytes (%) (Auto) 30% (24-48) 30% (24-48) Monocytes (%) (Auto) 23% (0-9) 26% (0-9) Eosinophils (%) (Auto) 2% (0-3) 2% (0-3) Basophils (%) (Auto) 1% (0-3) 1% (0-3) Neutrophils # (Auto) 3.6x10^3uL (1.8-7.7) 2.8x10^3uL (1.8-7.7) Lymphocytes # (Auto) 2.4x10^3/uL (1.0-4.8) 2.0x10^3/uL (1.0-4.8) Monocytes # (Auto) 1.9x10^3/uL (0.0-1.1) 1.7x10^3/uL (0.0-1.1) Eosinophils # (Auto) 0.2x10^3/uL (0.0-0.7) 0.2x10^3/uL (0.0-0.7) Basophils # (Auto) 0.1x10^3/uL (0.0-0.2) 0.0x10^3/uL (0.0-0.2) Segmented Neutrophils % 63% (35-66) Band Neutrophils % 1% (0-9) Lymphocytes % 14% (24-48) Monocytes % 21% (0-10) Eosinophils % 1% (0-5) Platelet Estimate Decreased (ADEQUATE) Poikilocytosis Present Anisocytosis Slight Macrocytosis Slight Target Cells Present Sodium Level 138mmol/L (136-145) 140mmol/L (136-145) Potassium Level 3.4mmol/L (3.5-5.1) 3.1mmol/L (3.5-5.1) Chloride Level 104mmol/L (98-107) 107mmol/L (98-107) Carbon Dioxide Level 26mmol/L (21-32) 27mmol/L (21-32) Anion Gap 8 (6-14) 6 (6-14) Blood Urea Nitrogen 4mg/dL (8-26) 6mg/dL (8-26) Creatinine 1.2mg/dL (0.7-1.3) 1.1mg/dL (0.7-1.3) Estimated GFR (Cockcroft-Gault) 75.2 83.2 BUN/Creatinine Ratio 3 (6-20) 5 (6-20) Glucose Level 77mg/dL (70-99) 79mg/dL (70-99) Calcium Level 7.3mg/dL (8.5-10.1) 7.1mg/dL (8.5-10.1) Total Bilirubin 2.7mg/dL (0.2-1.0) 2.1mg/dL (0.2-1.0) Aspartate Amino Transf (AST/SGOT) 104U/L (15-37) 76U/L (15-37) Alanine Aminotransferase (ALT/SGPT) 23U/L (16-63) 16U/L (16-63) Alkaline Phosphatase 161U/L (46-116) 126U/L (46-116) Total Protein 5.6g/dL (6.4-8.2) 5.1g/dL (6.4-8.2) Albumin 1.8g/dL (3.4-5.0) 1.5g/dL (3.4-5.0) Albumin/Globulin Ratio 0.5 (1.0-1.7) 0.4 (1.0-1.7) Laboratory Tests Test 05/28/16 06:45 White Blood Count 6.8x10^3/uL (4.0-11.0) Red Blood Count 2.68x10^6/uL (4.30-5.70) Hemoglobin 9.9g/dL (13.0-17.5) Hematocrit 29.9% (39.0-53.0) Mean Corpuscular Volume 112fL (79-100) Mean Corpuscular Hemoglobin 37pg (25-35) Mean Corpuscular Hemoglobin Concent 33g/dL (31-37) Red Cell Distribution Width 16.1% (11.5-14.5) Platelet Count 83x10^3/uL (140-400) Neutrophils (%) (Auto) 41% (31-73) Lymphocytes (%) (Auto) 30% (24-48) Monocytes (%) (Auto) 26% (0-9) Eosinophils (%) (Auto) 2% (0-3) Basophils (%) (Auto) 1% (0-3) Neutrophils # (Auto) 2.8x10^3uL (1.8-7.7) Lymphocytes # (Auto) 2.0x10^3/uL (1.0-4.8) Monocytes # (Auto) 1.7x10^3/uL (0.0-1.1) Eosinophils # (Auto) 0.2x10^3/uL (0.0-0.7) Basophils # (Auto) 0.0x10^3/uL (0.0-0.2) Sodium Level 140mmol/L (136-145) Potassium Level 3.1mmol/L (3.5-5.1) Chloride Level 107mmol/L (98-107) Carbon Dioxide Level 27mmol/L (21-32) Anion Gap 6 (6-14) Blood Urea Nitrogen 6mg/dL (8-26) Creatinine 1.1mg/dL (0.7-1.3) Estimated GFR (Cockcroft-Gault) 83.2 BUN/Creatinine Ratio 5 (6-20) Glucose Level 79mg/dL (70-99) Calcium Level 7.1mg/dL (8.5-10.1) Total Bilirubin 2.1mg/dL (0.2-1.0) Aspartate Amino Transf (AST/SGOT) 76U/L (15-37) Alanine Aminotransferase (ALT/SGPT) 16U/L (16-63) Alkaline Phosphatase 126U/L (46-116) Total Protein 5.1g/dL (6.4-8.2) Albumin 1.5g/dL (3.4-5.0) Albumin/Globulin Ratio 0.4 (1.0-1.7) Medications Current Medications Haloperidol Lactate (Haldol) 5 mg PRN Q2HRS PRN IVP AGITATION Last administered on 05/27/16 23:03; Start 05/24/16 at 14:30 Ondansetron HCl (Zofran) 4 mg PRN Q6HRS PRN IV NAUSEA/VOMITING; Start 05/24/16 at 14:30; Stop 05/26/16 at 16:06; Status DC Calcium Carbonate/ Glycine (Tums) 500 mg PRN Q3HRS PRN PO HEARTBURN / GAS; Start 05/24/16 at 14:30 Famotidine (Pepcid) 20 mg BID PO Last administered on 05/28/16 09:26; Start 05/24/16 at 21:00 Enoxaparin Sodium (Lovenox 40mg Syringe) 80 mg BID SQ ; Start 05/24/16 at 21:00; Status UNV Sodium Chloride (Normal Saline Flush) 3 ml QSHIFT PRN IV AFTER MEDS AND BLOOD DRAWS; Start 05/24/16 at 14:30 Acetaminophen/ Hydrocodone Bitart 1 tab 1 tab PRN Q4HRS PRN PO pain Last administered on 05/28/16 02:48; Start 05/24/16 at 14:30 Multivitamins/ Minerals/Thiamine HCl/Sodium Chloride (Infuvite Adult/ Iv Sodium Chloride 0.9% 1000ml Bag) 1,011 ml @ 99.981 mls/ hr DAILY IV Last administered on 05/28/16 09:23; Start 05/24/16 at 15:00; Stop 05/30/16 at 14:59 Lorazepam (Ativan) 4 mg PRN Q1HR PRN PO For CIWA 8-14 Last administered on 12:59; Start 05/24/16 at 14:45 Lorazepam (Ativan) 8 mg PRN Q1HR PRN PO For CIWA 15 or greater; Start 05/24/16 at 14:45 Clonidine HCl 0.1 mg 0.1 mg PRN Q1HR PRN PO SBP > 180 or DBP > 100, MRX3; Start 05/24/16 at 14:45 Metronidazole (FLAGYL 500Mmg PREMIX) 100 ml @ 100 mls/hr Q8HRS IV Last administered on 05/28/16 05:39; Start 05/24/16 at 15:00 Diphenhydramine HCl (Benadryl) 25 mg PRN Q6HRS PRN IVP ITCHING Last administered on 05/28/16 02:47; Start 05/24/16 at 16:15 Albuterol/ Ipratropium (Duoneb) 3 ml QIDPRN PRN NEB WHEEZING Last administered on 05/27/16 22:53; Start 05/24/16 at 16:15; Stop 05/28/16 at 00:52; Status DC Ondansetron HCl (Zofran) 4 mg PRN Q6HRS PRN IV NAUSEA/VOMITING; Start 05/24/16 at 16:15 Spironolactone (Aldactone) 100 mg DAILY PO Last administered on 05/28/16 09:26 ; Start 05/25/16 at 09:00 Lorazepam (Ativan) 2 mg PRN Q1HR PRN IV For CIWA 8-14 Last administered on 09:27; Start 05/26/16 at 16:45 Lorazepam (Ativan) 4 mg PRN Q1HR PRN IV For CIWA 15 or greater; Start 05/26/16 at 16:45 Acetaminophen (Tylenol) 650 mg PRN Q6HRS PRN PO MILD PAIN / TEMP Last administered on 05/28/16 01:12; Start 05/28/16 at 01:00 Albuterol Sulfate (Ventolin Neb Soln) 2.5 mg PRN QID PRN NEB WHEEZING Last administered on 05/28/16 11:26; Start 05/28/16 at 00:52 Potassium Chloride (Klor-Con) 20 meq DAILYWBKFT PO ; Start 05/29/16 at 08:00 Potassium Chloride 40 meq 40 meq 1X ONCE PO ; Start 05/28/16 at 12:00; Stop 05/28 at 12:01; Status DC Magnesium Sulfate/ Dextrose (Magnesium Sulfate PREMIX 2GM) 50 ml @ 25 mls/hr 1X ONCE IV ; Start 05/28/16 at 12:15; Stop 05/28/16 at 14:14 Active Scripts Active Reported Lortab 7.5-325 mg Tablet (Hydrocodone/Acetaminophen) 1 Each Tablet 1 Tab PO PRN Q6HRS PRN Klor-Con M20 (Potassium Chloride) 20 Meq Tab.er.prt 20 Meq PO BID Lisinopril 40 Mg Tablet 40 Mg PO DAILY Vitals/I & O Vital Sign - Last 24 Hours 05/27/16 05/27/16 05/27/16 05/27/16 15:00 16:57 19:10 19:55 Temp 98.3 100.0 98.3 100.0 Pulse 94 101 Resp 18 B/P 113/81 120/86 Pulse Ox 92 93 O2 Delivery Room Air Room Air Room Air Room Air 05/27/16 05/27/16 05/27/16 05/28/16 20:20 22:42 22:58 02:48 Temp 100.0 100.0 Pulse 112 Resp 23 B/P 115/76 Pulse Ox 93 O2 Delivery Room Air Room Air Room Air Room Air 05/28/16 05/28/16 05/28/16 05/28/16 02:57 03:07 03:58 07:15 Temp 98.1 98.6 98.1 98.6 Pulse 89 98 Resp 18 B/P 99/69 103/75 Pulse Ox 97 96 92 O2 Delivery Room Air Room Air Room Air 05/28/16 05/28/16 05/28/16 08:00 11:00 11:28 Temp 98.9 98.9 Pulse 99 Resp 22 B/P 120/88 Pulse Ox 95 96 O2 Delivery Room Air Room Air Room Air Intake and Output 05/27/16 05/27/16 05/28/16 15:00 23:00 07:00 Intake Total 550 ml 1030 ml 440 ml Output Total 100 ml 100 ml Balance 450 ml 930 ml 440 ml LAVONNE JOEL MD May 28, 2016 12:13
[2016-05-28] MEDS ORDERED: MAGNESIUM SULFATE 2GM 50 ML IV ONE ×2 (12:15→13:00)
[2016-05-28] MEDS: LACTULOSE 20 GM/30 ML SOLUTION. PO SCH ×2 (13:29→21:58)
[2016-05-28] MEDS: LORAZEPAM 1 MG TABLET. PO PRN ×3 (13:30→21:58)
[2016-05-28 15:01] VITALS: BP 108/74
--- NOTE | 2016-05-28 15:15 | PDOC2 ---
GI CONSULT Reason For Consult: Liver disease, ETOH HPI: HPI: History obtained from chart and staff. This 56 y/o AA male was transferred from [facility] last week w/ C Diff; diarrhea is improving w/ Flagyl. GI consult requested today re: liver disease. He has a h/o alcohol abuse (2-2.5 liters of gin daily per chart) w/ recurrent ascites. He underwent paracentesis at [facility]. Hepatitis panel and ABIODUN were negative there, and CT revealed fatty liver. He is withdrawing from alcohol and has been agitated and confused. Labs show Hgb 9.9, INR 1.8, plt count 83, bili 2.1 (from 3.4), AST 76, ALT 16, Alk Phos 126. Per RN, abdomen is "redd" and more distended today. He is eating about 25% of his meals. During interview, he mostly mumbles and is difficult to understand. He denies abdominal pain, n/v, heartburn/reflux, hematochezia, and melena, but does admit to diarrhea, and says he had a little difficulty swallowing yesterday w/ liquids (no recurrence). Is on famotidine and lactulose. PMH: PMH: per HPI and from chart - HTN, asthma, arthritis, gout, depression Social History: Smoke: 2 packs per day ALCOHOL: heavy Drugs: None ROS: GI: Per HPI, otherwise unobtainable VItals: Vitals: Vital Signs Date Time Temp Pulse Resp B/P Pulse Ox O2 Delivery O2 Flow Rate FiO2 05/28/16 11:28 96 Room Air 05/28/16 11:00 98.9 99 22 120/88 98.9 Labs: Labs: Laboratory Tests Test 05/28/16 06:45 White Blood Count 6.8x10^3/uL (4.0-11.0) Red Blood Count 2.68x10^6/uL (4.30-5.70) Hemoglobin 9.9g/dL (13.0-17.5) Hematocrit 29.9% (39.0-53.0) Mean Corpuscular Volume 112fL (79-100) Mean Corpuscular Hemoglobin 37pg (25-35) Mean Corpuscular Hemoglobin Concent 33g/dL (31-37) Red Cell Distribution Width 16.1% (11.5-14.5) Platelet Count 83x10^3/uL (140-400) Neutrophils (%) (Auto) 41% (31-73) Lymphocytes (%) (Auto) 30% (24-48) Monocytes (%) (Auto) 26% (0-9) Eosinophils (%) (Auto) 2% (0-3) Basophils (%) (Auto) 1% (0-3) Neutrophils # (Auto) 2.8x10^3uL (1.8-7.7) Lymphocytes # (Auto) 2.0x10^3/uL (1.0-4.8) Monocytes # (Auto) 1.7x10^3/uL (0.0-1.1) Eosinophils # (Auto) 0.2x10^3/uL (0.0-0.7) Basophils # (Auto) 0.0x10^3/uL (0.0-0.2) Sodium Level 140mmol/L (136-145) Potassium Level 3.1mmol/L (3.5-5.1) Chloride Level 107mmol/L (98-107) Carbon Dioxide Level 27mmol/L (21-32) Anion Gap 6 (6-14) Blood Urea Nitrogen 6mg/dL (8-26) Creatinine 1.1mg/dL (0.7-1.3) Estimated GFR (Cockcroft-Gault) 83.2 BUN/Creatinine Ratio 5 (6-20) Glucose Level 79mg/dL (70-99) Calcium Level 7.1mg/dL (8.5-10.1) Total Bilirubin 2.1mg/dL (0.2-1.0) Aspartate Amino Transf (AST/SGOT) 76U/L (15-37) Alanine Aminotransferase (ALT/SGPT) 16U/L (16-63) Alkaline Phosphatase 126U/L (46-116) Total Protein 5.1g/dL (6.4-8.2) Albumin 1.5g/dL (3.4-5.0) Albumin/Globulin Ratio 0.4 (1.0-1.7) Allergies: Coded Allergies: Penicillins (Unverified Allergy, Intermediate, 11/28/13) Sulfa (Sulfonamide Antibiotics) (Unverified Allergy, Intermediate, 11/28/13 ) folic acid (Verified Allergy, Intermediate, hives and severe itching, ) Medications: Current Medications Medications (Trade) Dose Ordered Sig/Jana Route PRN Reason Start Time Stop Time Status Last Admin Dose Admin Acetaminophen (Tylenol) 650 mg PRN Q6HRS PRN PO MILD PAIN / TEMP 05/28/16 01:00 05/28/16 01:12 Albuterol Sulfate (Ventolin Neb Soln) 2.5 mg PRN QID PRN NEB WHEEZING 05/28/16 00:52 05/28/16 11:26 Potassium Chloride (Klor-Con) 40 meq 1X ONCE PO 05/28/16 12:00 05/28/16 12:01 DC 05/28/16 13:29 Lactulose 20 gm BID PO 05/28/16 12:45 05/28/16 13:29 PE: GEN: NAD HEENT: Atraumatic LUNGS: CTAB anteriorly HEART: RRR ABD: BS+, distended, tight, non-tender EXTREMITY: No edema SKIN: No rashes, no jaundice NEURO/PSYCH: mumbles, keeps eyes closed OTHER: 1:1 observation A/P: A/P: Alcohol abuse, withdrawal, confusion Liver disease w/ recurrent ascites -s/p recent paracentesis at [facility] -fatty liver on CT C Diff -improving on IV Flagyl Anemia, thrombocytopenia -- Withdrawal precautions in place. Continue antibiotics. Abstinence from alcohol. BASILIO RODRIGUEZ May 28, 2016 15:15
[2016-05-28 19:14] VITALS: BP 111/78
[2016-05-28] MEDS: METRONIDAZOLE 500 MG TABLET. PO SCH (21:58)
[2016-05-28] MEDS: HALOPERIDOL LACT 5 MG/ML VIAL. IVP PRN (21:59)
[2016-05-28] MEDS: QUEtiapine 25 MG TABLET. PO SCH (21:59)
[2016-05-28 23:08] VITALS: BP 108/78
[2016-05-29 03:04] VITALS: BP 109/81
[2016-05-29] MEDS: ALBUTEROL SULFATE 2.5 MG/3 ML NEBU. NEB PRN ×3 (04:52→19:52)
[2016-05-29 07:10] VITALS: BP 119/83
[2016-05-29 08:35] LABS: BASO % 1 % (0-3); EOS % 2 % (0-3); HEMATOCRIT 32.9 % (39.0-53.0); HEMOGLOBIN 10.7 g/dL (13.0-17.5); LYMPH # 2.4 x10^3/uL (1.0-4.8); LYMPH % 33 % (24-48); MEAN CORPUSCULAR HEMOGLOBIN 36 pg (25-35); MEAN CORPUSCULAR HGB CONC 33 g/dL (31-37); MEAN CORPUSCULAR VOLUME 111 fL (79-100); MONO % 24 % (0-9); NEUT % 41 % (31-73); PLATELET COUNT 116 x10^3/uL (140-400); RED BLOOD COUNT 2.95 x10^6/uL (4.30-5.70); RED CELL DISTRIBUTION WIDTH 15.8 % (11.5-14.5); WHITE BLOOD COUNT 7.4 x10^3/uL (4.0-11.0)
[2016-05-29 08:37] LABS: ALBUMIN 1.9 g/dL (3.4-5.0); ALBUMIN/GLOBULIN RATIO 0.5 (1.0-1.7); CALCIUM 7.7 mg/dL (8.5-10.1); CREATININE 1.1 mg/dL (0.7-1.3); GFR 83.2; POTASSIUM 3.6 mmol/L (3.5-5.1); TOTAL BILIRUBIN 2.4 mg/dL (0.2-1.0); TOTAL PROTEIN 5.8 g/dL (6.4-8.2)
[2016-05-29] MEDS: [UNRECOGNIZED DRUG - REMARK] IV SCH ×3 (09:00)
[2016-05-29] MEDS: LACTULOSE 20 GM/30 ML SOLUTION. PO SCH ×2 (09:08→22:07)
[2016-05-29] MEDS: SPIRONOLACTONE 25 MG TABLET PO SCH (09:08)
[2016-05-29] MEDS: METRONIDAZOLE 500 MG TABLET. PO SCH ×3 (09:08→22:07)
[2016-05-29] MEDS: FAMOTIDINE 20 MG TABLET. PO SCH ×2 (09:08→22:08)
[2016-05-29] MEDS: POTASSIUM CHLORIDE 20 MEQ TABLET.ER. PO SCH (09:09)
[2016-05-29 09:51] LABS: INR 1.6 (0.8-1.1); PROTHROMBIN TIME PATIENT 18.4 SEC (11.7-14.0)
--- NOTE | 2016-05-29 10:31 | PDOC ---
Objective: Objective: Per RN, aide - 1 stool this morning, still out of it, not eating much. Vital Signs: Vital Signs Date Time Temp Pulse Resp B/P Pulse Ox O2 Delivery O2 Flow Rate FiO2 05/29/16 08:00 Room Air 05/29/16 07:10 99.4 96 18 119/83 96 99.4 Labs: Laboratory Tests Test 05/29/16 08:05 05/29/16 09:10 White Blood Count 7.4x10^3/uL Red Blood Count 2.95x10^6/uL Hemoglobin 10.7g/dL Hematocrit 32.9% Mean Corpuscular Volume 111fL Mean Corpuscular Hemoglobin 36pg Mean Corpuscular Hemoglobin Concent 33g/dL Red Cell Distribution Width 15.8% Platelet Count 116x10^3/uL Neutrophils (%) (Auto) 41% Lymphocytes (%) (Auto) 33% Monocytes (%) (Auto) 24% Eosinophils (%) (Auto) 2% Basophils (%) (Auto) 1% Neutrophils # (Auto) 3.0x10^3uL Lymphocytes # (Auto) 2.4x10^3/uL Monocytes # (Auto) 1.8x10^3/uL Eosinophils # (Auto) 0.2x10^3/uL Basophils # (Auto) 0.0x10^3/uL Sodium Level 140mmol/L Potassium Level 3.6mmol/L Chloride Level 106mmol/L Carbon Dioxide Level 26mmol/L Anion Gap 8 Blood Urea Nitrogen 4mg/dL Creatinine 1.1mg/dL Estimated GFR (Cockcroft-Gault) 83.2 BUN/Creatinine Ratio 4 Glucose Level 81mg/dL Calcium Level 7.7mg/dL Total Bilirubin 2.4mg/dL Aspartate Amino Transf (AST/SGOT) 84U/L Alanine Aminotransferase (ALT/SGPT) 21U/L Alkaline Phosphatase 145U/L Total Protein 5.8g/dL Albumin 1.9g/dL Albumin/Globulin Ratio 0.5 Prothrombin Time 18.4SEC Prothromb Time International Ratio 1.6 PE: GEN: NAD LUNGS: CTAB HEART: RRR ABD: distended/tight/ascites, seems non-tender NEURO/PSYCH: barely opens eyes, mumbles A/P: Alcohol abuse, withdrawal, confusion Alcoholic hepatitis, ?cirrhosis -s/p recent paracentesis at [facility] -fatty liver on CT -thrombocytopenia C Diff -improving on IV Flagyl -- LFTs a little worse today but better overall since admission. Still mental issues. Will need diuresis ?repeat paracentesis when mentally better. BASILIO RODRIGUEZ May 29, 2016 10:31
[2016-05-29 10:55] VITALS: BP 113/79
[2016-05-29] MEDS: LORAZEPAM 1 MG TABLET. PO PRN ×3 (13:12→22:07)
--- NOTE | 2016-05-29 13:21 | PDOC ---
PROGRESS NOTES Chief Complaint Chief Complaint metabolic encephalopathy, acute w/. EtOH cirrhosis w/ ascites C. diff colitis 1. EtOH W/D: on CIWA protocol, switched to IV rather than PO. banana bag. 1: 1 sitter 2. C. diff colitis: improving. on flagyl 3. Ascites: s/p tap at [facility]. 4. Pancytopenia: 2/2 EtOH abuse. plts recovering 5. Anemia: macrocytic. prob EtOH related. B12/folate WNL 6. Hyperbilirubinemia: prob EtOH related. sl improved 7. Protein malnutrition: severe. suspect diet related as well as poor hepatic fxn. high protein diet 8. Elevated DDimer: nondiagnostic CTA and low prob VQ scan at [facility]. 9. GI prophylaxis: PPI History of Present Illness History of Present Illness feels better, would like to dc still unsteady noted weakness Vitals Vitals Vital Signs Date Time Temp Pulse Resp B/P Pulse Ox O2 Delivery O2 Flow Rate FiO2 05/29/16 12:34 95 Room Air 05/29/16 10:55 98.2 96 18 113/79 98.2 Physical Exam Physical Exam sedated, received Ativan for agitation General: Other (sedated (ativan)) Heart: Regular rate Lungs: Clear Abdomen: Soft, No tenderness, Other (massive ascites) Extremities: No clubbing, No edema Skin: No rashes Labs LABS Laboratory Tests Test 05/29/16 08:05 05/29/16 09:10 White Blood Count 7.4x10^3/uL (4.0-11.0) Red Blood Count 2.95x10^6/uL (4.30-5.70) Hemoglobin 10.7g/dL (13.0-17.5) Hematocrit 32.9% (39.0-53.0) Mean Corpuscular Volume 111fL (79-100) Mean Corpuscular Hemoglobin 36pg (25-35) Mean Corpuscular Hemoglobin Concent 33g/dL (31-37) Red Cell Distribution Width 15.8% (11.5-14.5) Platelet Count 116x10^3/uL (140-400) Neutrophils (%) (Auto) 41% (31-73) Lymphocytes (%) (Auto) 33% (24-48) Monocytes (%) (Auto) 24% (0-9) Eosinophils (%) (Auto) 2% (0-3) Basophils (%) (Auto) 1% (0-3) Neutrophils # (Auto) 3.0x10^3uL (1.8-7.7) Lymphocytes # (Auto) 2.4x10^3/uL (1.0-4.8) Monocytes # (Auto) 1.8x10^3/uL (0.0-1.1) Eosinophils # (Auto) 0.2x10^3/uL (0.0-0.7) Basophils # (Auto) 0.0x10^3/uL (0.0-0.2) Sodium Level 140mmol/L (136-145) Potassium Level 3.6mmol/L (3.5-5.1) Chloride Level 106mmol/L (98-107) Carbon Dioxide Level 26mmol/L (21-32) Anion Gap 8 (6-14) Blood Urea Nitrogen 4mg/dL (8-26) Creatinine 1.1mg/dL (0.7-1.3) Estimated GFR (Cockcroft-Gault) 83.2 BUN/Creatinine Ratio 4 (6-20) Glucose Level 81mg/dL (70-99) Calcium Level 7.7mg/dL (8.5-10.1) Total Bilirubin 2.4mg/dL (0.2-1.0) Aspartate Amino Transf (AST/SGOT) 84U/L (15-37) Alanine Aminotransferase (ALT/SGPT) 21U/L (16-63) Alkaline Phosphatase 145U/L (46-116) Total Protein 5.8g/dL (6.4-8.2) Albumin 1.9g/dL (3.4-5.0) Albumin/Globulin Ratio 0.5 (1.0-1.7) Prothrombin Time 18.4SEC (11.7-14.0) Prothromb Time International Ratio 1.6 (0.8-1.1) Assessment and Plan Assessmemt and Plan cont pt and ot try off 1:1 when able Problems Medical Problems: (1) Ascites Status: Acute Problems: Comment Review of Relevant I have reviewed the following items mary (where applicable) has been applied. Labs Laboratory Tests Test 05/28/16 06:45 05/29/16 08:05 05/29/16 09:10 White Blood Count 6.8x10^3/uL (4.0-11.0) 7.4x10^3/uL (4.0-11.0) Red Blood Count 2.68x10^6/uL (4.30-5.70) 2.95x10^6/uL (4.30-5.70) Hemoglobin 9.9g/dL (13.0-17.5) 10.7g/dL (13.0-17.5) Hematocrit 29.9% (39.0-53.0) 32.9% (39.0-53.0) Mean Corpuscular Volume 112fL (79-100) 111fL (79-100) Mean Corpuscular Hemoglobin 37pg (25-35) 36pg (25-35) Mean Corpuscular Hemoglobin Concent 33g/dL (31-37) 33g/dL (31-37) Red Cell Distribution Width 16.1% (11.5-14.5) 15.8% (11.5-14.5) Platelet Count 83x10^3/uL (140-400) 116x10^3/uL (140-400) Neutrophils (%) (Auto) 41% (31-73) 41% (31-73) Lymphocytes (%) (Auto) 30% (24-48) 33% (24-48) Monocytes (%) (Auto) 26% (0-9) 24% (0-9) Eosinophils (%) (Auto) 2% (0-3) 2% (0-3) Basophils (%) (Auto) 1% (0-3) 1% (0-3) Neutrophils # (Auto) 2.8x10^3uL (1.8-7.7) 3.0x10^3uL (1.8-7.7) Lymphocytes # (Auto) 2.0x10^3/uL (1.0-4.8) 2.4x10^3/uL (1.0-4.8) Monocytes # (Auto) 1.7x10^3/uL (0.0-1.1) 1.8x10^3/uL (0.0-1.1) Eosinophils # (Auto) 0.2x10^3/uL (0.0-0.7) 0.2x10^3/uL (0.0-0.7) Basophils # (Auto) 0.0x10^3/uL (0.0-0.2) 0.0x10^3/uL (0.0-0.2) Sodium Level 140mmol/L (136-145) 140mmol/L (136-145) Potassium Level 3.1mmol/L (3.5-5.1) 3.6mmol/L (3.5-5.1) Chloride Level 107mmol/L (98-107) 106mmol/L (98-107) Carbon Dioxide Level 27mmol/L (21-32) 26mmol/L (21-32) Anion Gap 6 (6-14) 8 (6-14) Blood Urea Nitrogen 6mg/dL (8-26) 4mg/dL (8-26) Creatinine 1.1mg/dL (0.7-1.3) 1.1mg/dL (0.7-1.3) Estimated GFR (Cockcroft-Gault) 83.2 83.2 BUN/Creatinine Ratio 5 (6-20) 4 (6-20) Glucose Level 79mg/dL (70-99) 81mg/dL (70-99) Calcium Level 7.1mg/dL (8.5-10.1) 7.7mg/dL (8.5-10.1) Total Bilirubin 2.1mg/dL (0.2-1.0) 2.4mg/dL (0.2-1.0) Aspartate Amino Transf (AST/SGOT) 76U/L (15-37) 84U/L (15-37) Alanine Aminotransferase (ALT/SGPT) 16U/L (16-63) 21U/L (16-63) Alkaline Phosphatase 126U/L (46-116) 145U/L (46-116) Total Protein 5.1g/dL (6.4-8.2) 5.8g/dL (6.4-8.2) Albumin 1.5g/dL (3.4-5.0) 1.9g/dL (3.4-5.0) Albumin/Globulin Ratio 0.4 (1.0-1.7) 0.5 (1.0-1.7) Prothrombin Time 18.4SEC (11.7-14.0) Prothromb Time International Ratio 1.6 (0.8-1.1) Laboratory Tests Test 05/29/16 08:05 05/29/16 09:10 White Blood Count 7.4x10^3/uL (4.0-11.0) Red Blood Count 2.95x10^6/uL (4.30-5.70) Hemoglobin 10.7g/dL (13.0-17.5) Hematocrit 32.9% (39.0-53.0) Mean Corpuscular Volume 111fL (79-100) Mean Corpuscular Hemoglobin 36pg (25-35) Mean Corpuscular Hemoglobin Concent 33g/dL (31-37) Red Cell Distribution Width 15.8% (11.5-14.5) Platelet Count 116x10^3/uL (140-400) Neutrophils (%) (Auto) 41% (31-73) Lymphocytes (%) (Auto) 33% (24-48) Monocytes (%) (Auto) 24% (0-9) Eosinophils (%) (Auto) 2% (0-3) Basophils (%) (Auto) 1% (0-3) Neutrophils # (Auto) 3.0x10^3uL (1.8-7.7) Lymphocytes # (Auto) 2.4x10^3/uL (1.0-4.8) Monocytes # (Auto) 1.8x10^3/uL (0.0-1.1) Eosinophils # (Auto) 0.2x10^3/uL (0.0-0.7) Basophils # (Auto) 0.0x10^3/uL (0.0-0.2) Sodium Level 140mmol/L (136-145) Potassium Level 3.6mmol/L (3.5-5.1) Chloride Level 106mmol/L (98-107) Carbon Dioxide Level 26mmol/L (21-32) Anion Gap 8 (6-14) Blood Urea Nitrogen 4mg/dL (8-26) Creatinine 1.1mg/dL (0.7-1.3) Estimated GFR (Cockcroft-Gault) 83.2 BUN/Creatinine Ratio 4 (6-20) Glucose Level 81mg/dL (70-99) Calcium Level 7.7mg/dL (8.5-10.1) Total Bilirubin 2.4mg/dL (0.2-1.0) Aspartate Amino Transf (AST/SGOT) 84U/L (15-37) Alanine Aminotransferase (ALT/SGPT) 21U/L (16-63) Alkaline Phosphatase 145U/L (46-116) Total Protein 5.8g/dL (6.4-8.2) Albumin 1.9g/dL (3.4-5.0) Albumin/Globulin Ratio 0.5 (1.0-1.7) Prothrombin Time 18.4SEC (11.7-14.0) Prothromb Time International Ratio 1.6 (0.8-1.1) Medications Current Medications Haloperidol Lactate (Haldol) 5 mg PRN Q2HRS PRN IVP AGITATION Last administered on 05/27/16 23:03; Start 05/24/16 at 14:30 Ondansetron HCl (Zofran) 4 mg PRN Q6HRS PRN IV NAUSEA/VOMITING; Start 05/24/16 at 14:30; Stop 05/26/16 at 16:06; Status DC Calcium Carbonate/ Glycine (Tums) 500 mg PRN Q3HRS PRN PO HEARTBURN / GAS; Start 05/24/16 at 14:30 Famotidine (Pepcid) 20 mg BID PO Last administered on 05/29/16 09:08; Start at 21:00 Enoxaparin Sodium (Lovenox 40mg Syringe) 80 mg BID SQ ; Start 05/24/16 at 21:00; Status UNV Sodium Chloride (Normal Saline Flush) 3 ml QSHIFT PRN IV AFTER MEDS AND BLOOD DRAWS; Start 05/24/16 at 14:30 Acetaminophen/ Hydrocodone Bitart 1 tab 1 tab PRN Q4HRS PRN PO pain Last administered on 05/28/16 22:28; Start 05/24/16 at 14:30 Multivitamins/ Minerals/Thiamine HCl/Sodium Chloride (Infuvite Adult/ Iv Sodium Chloride 0.9% 1000ml Bag) 1,011 ml @ 99.981 mls/ hr DAILY IV Last administered on 05/28/16 09:23; Start 05/24/16 at 15:00; Stop 05/30/16 at 14:59 Lorazepam (Ativan) 4 mg PRN Q1HR PRN PO For CIWA 8-14 Last administered on 05/29 13:12; Start 05/24/16 at 14:45 Lorazepam (Ativan) 8 mg PRN Q1HR PRN PO For CIWA 15 or greater Last administered on 05/28/16 21:58; Start 05/24/16 at 14:45 Clonidine HCl 0.1 mg 0.1 mg PRN Q1HR PRN PO SBP > 180 or DBP > 100, MRX3; Start 05/24/16 at 14:45 Metronidazole (FLAGYL 500Mmg PREMIX) 100 ml @ 100 mls/hr Q8HRS IV Last administered on 05/28/16 05:39; Start 05/24/16 at 15:00; Stop 05/28/16 at 18:03; Status DC Diphenhydramine HCl (Benadryl) 25 mg PRN Q6HRS PRN IVP ITCHING Last administered on 05/28/16 02:47; Start 05/24/16 at 16:15 Albuterol/ Ipratropium (Duoneb) 3 ml QIDPRN PRN NEB WHEEZING Last administered on 05/27/16 22:53; Start 05/24/16 at 16:15; Stop 05/28/16 at 00:52; Status DC Ondansetron HCl (Zofran) 4 mg PRN Q6HRS PRN IV NAUSEA/VOMITING; Start 05/24/16 at 16:15 Spironolactone (Aldactone) 100 mg DAILY PO Last administered on 05/29/16 09:08 ; Start 05/25/16 at 09:00 Lorazepam (Ativan) 2 mg PRN Q1HR PRN IV For CIWA 8-14 Last administered on 09:27; Start 05/26/16 at 16:45 Lorazepam (Ativan) 4 mg PRN Q1HR PRN IV For CIWA 15 or greater; Start 05/26/16 at 16:45 Acetaminophen (Tylenol) 650 mg PRN Q6HRS PRN PO MILD PAIN / TEMP Last administered on 05/28/16 01:12; Start 05/28/16 at 01:00 Albuterol Sulfate (Ventolin Neb Soln) 2.5 mg PRN QID PRN NEB WHEEZING Last administered on 05/29/16 12:34; Start 05/28/16 at 00:52 Potassium Chloride (Klor-Con) 20 meq DAILYWBKFT PO Last administered on 09:09; Start 05/29/16 at 08:00 Potassium Chloride 40 meq 40 meq 1X ONCE PO Last administered on 05/28/16 13: 29; Start 05/28/16 at 12:00; Stop 05/28/16 at 12:01; Status DC Magnesium Sulfate/ Dextrose (Magnesium Sulfate PREMIX 2GM) 50 ml @ 25 mls/hr 1X ONCE IV ; Start 05/28/16 at 12:15; Stop 05/28/16 at 14:14; Status DC Lactulose 20 gm 20 gm BID PO Last administered on 05/29/16 09:08; Start at 12:45 Magnesium Sulfate/ Dextrose (Magnesium Sulfate PREMIX 2GM) 50 ml @ 25 mls/hr 1X ONCE IV ; Start 05/28/16 at 13:00; Stop 05/28/16 at 14:59; Status UNV Potassium Chloride (Klor-Con) 20 meq 1X ONCE PO ; Start 05/28/16 at 19:00; Stop 05/28/16 at 19:01; Status UNV Metronidazole (Flagyl) 500 mg Q8HRS PO Last administered on 05/29/16 13:12; Start 05/28/16 at 22:00 Quetiapine Fumarate (SEROquel) 25 mg QHS PO Last administered on 05/28/16 21:59 ; Start 05/28/16 at 21:00 Active Scripts Active Reported Lortab 7.5-325 mg Tablet (Hydrocodone/Acetaminophen) 1 Each Tablet 1 Tab PO PRN Q6HRS PRN Klor-Con M20 (Potassium Chloride) 20 Meq Tab.er.prt 20 Meq PO BID Lisinopril 40 Mg Tablet 40 Mg PO DAILY Vitals/I & O Vital Sign - Last 24 Hours 05/28/16 05/28/16 05/28/16 05/28/16 15:01 16:36 19:14 20:16 Temp 99.1 100.3 99.1 100.3 Pulse 91 96 Resp 14 18 B/P 108/74 111/78 Pulse Ox 97 97 98 O2 Delivery Room Air Room Air Room Air Room Air 05/28/16 05/28/16 05/28/16 05/28/16 20:20 22:28 23:08 23:59 Temp 99.8 99.8 Pulse 105 Resp 20 18 B/P 108/78 Pulse Ox 98 O2 Delivery Room Air Room Air Room Air Room Air 05/29/16 05/29/16 05/29/16 05/29/16 03:04 04:50 07:10 08:00 Temp 99.1 99.4 99.1 99.4 Pulse 94 96 Resp 16 18 B/P 109/81 119/83 Pulse Ox 98 96 O2 Delivery Room Air Room Air Room Air Room Air 05/29/16 05/29/16 10:55 12:34 Temp 98.2 98.2 Pulse 96 Resp 18 B/P 113/79 Pulse Ox 96 95 O2 Delivery Room Air Room Air Intake and Output 05/28/16 05/28/16 05/29/16 15:00 23:00 07:00 Intake Total 980 ml 726 ml 736 ml Balance 980 ml 726 ml 736 ml LAVONNE JOEL MD May 29, 2016 13:21
[2016-05-29 15:12] VITALS: BP 109/77
[2016-05-29 19:00] VITALS: BP 128/92
[2016-05-29] MEDS: HYDROCODONE/APAP 5/325MG TABLET. PO PRN (22:07)
[2016-05-29] MEDS: QUEtiapine 25 MG TABLET. PO SCH (22:08)
[2016-05-29 23:02] VITALS: BP 124/90
[2016-05-30 03:00] VITALS: BP 121/83
[2016-05-30] MEDS: HYDROCODONE/APAP 5/325MG TABLET. PO PRN ×3 (05:01→22:28)
[2016-05-30] MEDS: LORAZEPAM 1 MG TABLET. PO PRN ×4 (05:01→20:45)
[2016-05-30] MEDS: METRONIDAZOLE 500 MG TABLET. PO SCH ×3 (05:02→21:36)
[2016-05-30 05:42] LABS: BASO # 0.1 x10^3/uL (0.0-0.2); BASO % 1 % (0-3); EOS % 2 % (0-3); HEMATOCRIT 30.7 % (39.0-53.0); LYMPH # 3.1 x10^3/uL (1.0-4.8); LYMPH % 43 % (24-48); MEAN CORPUSCULAR HEMOGLOBIN 37 pg (25-35); MEAN CORPUSCULAR HGB CONC 33 g/dL (31-37); MEAN CORPUSCULAR VOLUME 113 fL (79-100); MONO % 21 % (0-9); NEUT % 33 % (31-73); PLATELET COUNT 131 x10^3/uL (140-400); RED BLOOD COUNT 2.72 x10^6/uL (4.30-5.70); RED CELL DISTRIBUTION WIDTH 15.9 % (11.5-14.5); WHITE BLOOD COUNT 7.2 x10^3/uL (4.0-11.0)
[2016-05-30 06:05] LABS: ALBUMIN 1.6 g/dL (3.4-5.0); ALBUMIN/GLOBULIN RATIO 0.4 (1.0-1.7); GFR 92.9; TOTAL BILIRUBIN 1.8 mg/dL (0.2-1.0); TOTAL PROTEIN 5.8 g/dL (6.4-8.2)
[2016-05-30] MEDS: [UNRECOGNIZED DRUG - REMARK] IV SCH ×3 (08:20)
[2016-05-30] MEDS: SPIRONOLACTONE 25 MG TABLET PO SCH (08:26)
[2016-05-30] MEDS: POTASSIUM CHLORIDE 20 MEQ TABLET.ER. PO SCH (08:26)
[2016-05-30] MEDS: FAMOTIDINE 20 MG TABLET. PO SCH ×2 (08:26→20:45)
[2016-05-30] MEDS: LACTULOSE 20 GM/30 ML SOLUTION. PO SCH ×2 (08:26→20:45)
--- NOTE | 2016-05-30 10:27 | PDOC ---
G I PROGRESS NOTE Subjective Not eating much; "no appetite". Denies pain, etc. Sleeping poorly. Physical Exam Lungs clear. RRR Abdomen with obvious ascites; not much change from yesterday. Not particularly hyperreflexic. No asterixis. Review of Relevant I have reviewed the following items mary (where applicable) has been applied. Labs Laboratory Tests Test 05/29/16 08:05 05/29/16 09:10 05/30/16 04:35 White Blood Count 7.4x10^3/uL (4.0-11.0) 7.2x10^3/uL (4.0-11.0) Red Blood Count 2.95x10^6/uL (4.30-5.70) 2.72x10^6/uL (4.30-5.70) Hemoglobin 10.7g/dL (13.0-17.5) 10.0g/dL (13.0-17.5) Hematocrit 32.9% (39.0-53.0) 30.7% (39.0-53.0) Mean Corpuscular Volume 111fL (79-100) 113fL (79-100) Mean Corpuscular Hemoglobin 36pg (25-35) 37pg (25-35) Mean Corpuscular Hemoglobin Concent 33g/dL (31-37) 33g/dL (31-37) Red Cell Distribution Width 15.8% (11.5-14.5) 15.9% (11.5-14.5) Platelet Count 116x10^3/uL (140-400) 131x10^3/uL (140-400) Neutrophils (%) (Auto) 41% (31-73) 33% (31-73) Lymphocytes (%) (Auto) 33% (24-48) 43% (24-48) Monocytes (%) (Auto) 24% (0-9) 21% (0-9) Eosinophils (%) (Auto) 2% (0-3) 2% (0-3) Basophils (%) (Auto) 1% (0-3) 1% (0-3) Neutrophils # (Auto) 3.0x10^3uL (1.8-7.7) 2.4x10^3uL (1.8-7.7) Lymphocytes # (Auto) 2.4x10^3/uL (1.0-4.8) 3.1x10^3/uL (1.0-4.8) Monocytes # (Auto) 1.8x10^3/uL (0.0-1.1) 1.5x10^3/uL (0.0-1.1) Eosinophils # (Auto) 0.2x10^3/uL (0.0-0.7) 0.1x10^3/uL (0.0-0.7) Basophils # (Auto) 0.0x10^3/uL (0.0-0.2) 0.1x10^3/uL (0.0-0.2) Sodium Level 140mmol/L (136-145) 139mmol/L (136-145) Potassium Level 3.6mmol/L (3.5-5.1) 4.0mmol/L (3.5-5.1) Chloride Level 106mmol/L (98-107) 107mmol/L (98-107) Carbon Dioxide Level 26mmol/L (21-32) 26mmol/L (21-32) Anion Gap 8 (6-14) 6 (6-14) Blood Urea Nitrogen 4mg/dL (8-26) 3mg/dL (8-26) Creatinine 1.1mg/dL (0.7-1.3) 1.0mg/dL (0.7-1.3) Estimated GFR (Cockcroft-Gault) 83.2 92.9 BUN/Creatinine Ratio 4 (6-20) 3 (6-20) Glucose Level 81mg/dL (70-99) 81mg/dL (70-99) Calcium Level 7.7mg/dL (8.5-10.1) 8.0mg/dL (8.5-10.1) Total Bilirubin 2.4mg/dL (0.2-1.0) 1.8mg/dL (0.2-1.0) Aspartate Amino Transf (AST/SGOT) 84U/L (15-37) 75U/L (15-37) Alanine Aminotransferase (ALT/SGPT) 21U/L (16-63) 15U/L (16-63) Alkaline Phosphatase 145U/L (46-116) 130U/L (46-116) Total Protein 5.8g/dL (6.4-8.2) 5.8g/dL (6.4-8.2) Albumin 1.9g/dL (3.4-5.0) 1.6g/dL (3.4-5.0) Albumin/Globulin Ratio 0.5 (1.0-1.7) 0.4 (1.0-1.7) Prothrombin Time 18.4SEC (11.7-14.0) Prothromb Time International Ratio 1.6 (0.8-1.1) Laboratory Tests Test 05/30/16 04:35 White Blood Count 7.2x10^3/uL (4.0-11.0) Red Blood Count 2.72x10^6/uL (4.30-5.70) Hemoglobin 10.0g/dL (13.0-17.5) Hematocrit 30.7% (39.0-53.0) Mean Corpuscular Volume 113fL (79-100) Mean Corpuscular Hemoglobin 37pg (25-35) Mean Corpuscular Hemoglobin Concent 33g/dL (31-37) Red Cell Distribution Width 15.9% (11.5-14.5) Platelet Count 131x10^3/uL (140-400) Neutrophils (%) (Auto) 33% (31-73) Lymphocytes (%) (Auto) 43% (24-48) Monocytes (%) (Auto) 21% (0-9) Eosinophils (%) (Auto) 2% (0-3) Basophils (%) (Auto) 1% (0-3) Neutrophils # (Auto) 2.4x10^3uL (1.8-7.7) Lymphocytes # (Auto) 3.1x10^3/uL (1.0-4.8) Monocytes # (Auto) 1.5x10^3/uL (0.0-1.1) Eosinophils # (Auto) 0.1x10^3/uL (0.0-0.7) Basophils # (Auto) 0.1x10^3/uL (0.0-0.2) Sodium Level 139mmol/L (136-145) Potassium Level 4.0mmol/L (3.5-5.1) Chloride Level 107mmol/L (98-107) Carbon Dioxide Level 26mmol/L (21-32) Anion Gap 6 (6-14) Blood Urea Nitrogen 3mg/dL (8-26) Creatinine 1.0mg/dL (0.7-1.3) Estimated GFR (Cockcroft-Gault) 92.9 BUN/Creatinine Ratio 3 (6-20) Glucose Level 81mg/dL (70-99) Calcium Level 8.0mg/dL (8.5-10.1) Total Bilirubin 1.8mg/dL (0.2-1.0) Aspartate Amino Transf (AST/SGOT) 75U/L (15-37) Alanine Aminotransferase (ALT/SGPT) 15U/L (16-63) Alkaline Phosphatase 130U/L (46-116) Total Protein 5.8g/dL (6.4-8.2) Albumin 1.6g/dL (3.4-5.0) Albumin/Globulin Ratio 0.4 (1.0-1.7) Medications Current Medications Haloperidol Lactate (Haldol) 5 mg PRN Q2HRS PRN IVP AGITATION Last administered on 05/27/16 23:03; Start 05/24/16 at 14:30 Ondansetron HCl (Zofran) 4 mg PRN Q6HRS PRN IV NAUSEA/VOMITING; Start 05/24/16 at 14:30; Stop 05/26/16 at 16:06; Status DC Calcium Carbonate/ Glycine (Tums) 500 mg PRN Q3HRS PRN PO HEARTBURN / GAS; Start 05/24/16 at 14:30 Famotidine (Pepcid) 20 mg BID PO Last administered on 05/30/16 08:26; Start at 21:00 Enoxaparin Sodium (Lovenox 40mg Syringe) 80 mg BID SQ ; Start 05/24/16 at 21:00; Status UNV Sodium Chloride (Normal Saline Flush) 3 ml QSHIFT PRN IV AFTER MEDS AND BLOOD DRAWS; Start 05/24/16 at 14:30 Acetaminophen/ Hydrocodone Bitart 1 tab 1 tab PRN Q4HRS PRN PO pain Last administered on 05/30/16 05:01; Start 05/24/16 at 14:30 Multivitamins/ Minerals/Thiamine HCl/Sodium Chloride (Infuvite Adult/ Iv Sodium Chloride 0.9% 1000ml Bag) 1,011 ml @ 99.981 mls/ hr DAILY IV Last administered on 05/28/16 09:23; Start 05/24/16 at 15:00; Stop 05/30/16 at 14:59 Lorazepam (Ativan) 4 mg PRN Q1HR PRN PO For CIWA 8-14 Last administered on 05/30 08:27; Start 05/24/16 at 14:45 Lorazepam (Ativan) 8 mg PRN Q1HR PRN PO For CIWA 15 or greater Last administered on 05/30/16 05:01; Start 05/24/16 at 14:45 Clonidine HCl 0.1 mg 0.1 mg PRN Q1HR PRN PO SBP > 180 or DBP > 100, MRX3; Start 05/24/16 at 14:45 Metronidazole (FLAGYL 500Mmg PREMIX) 100 ml @ 100 mls/hr Q8HRS IV Last administered on 05/28/16 05:39; Start 05/24/16 at 15:00; Stop 05/28/16 at 18:03; Status DC Diphenhydramine HCl (Benadryl) 25 mg PRN Q6HRS PRN IVP ITCHING Last administered on 05/28/16 02:47; Start 05/24/16 at 16:15 Albuterol/ Ipratropium (Duoneb) 3 ml QIDPRN PRN NEB WHEEZING Last administered on 05/27/16 22:53; Start 05/24/16 at 16:15; Stop 05/28/16 at 00:52; Status DC Ondansetron HCl (Zofran) 4 mg PRN Q6HRS PRN IV NAUSEA/VOMITING; Start 05/24/16 at 16:15 Spironolactone (Aldactone) 100 mg DAILY PO Last administered on 05/30/16 08:26 ; Start 05/25/16 at 09:00 Lorazepam (Ativan) 2 mg PRN Q1HR PRN IV For CIWA 8-14 Last administered on 09:27; Start 05/26/16 at 16:45 Lorazepam (Ativan) 4 mg PRN Q1HR PRN IV For CIWA 15 or greater; Start 05/26/16 at 16:45 Acetaminophen (Tylenol) 650 mg PRN Q6HRS PRN PO MILD PAIN / TEMP Last administered on 05/28/16 01:12; Start 05/28/16 at 01:00 Albuterol Sulfate (Ventolin Neb Soln) 2.5 mg PRN QID PRN NEB WHEEZING Last administered on 05/29/16 19:52; Start 05/28/16 at 00:52 Potassium Chloride (Klor-Con) 20 meq [id number] PO Last administered on 08:26; Start 05/29/16 at 08:00 Potassium Chloride 40 meq 40 meq 1X ONCE PO Last administered on 05/28/16 13: 29; Start 05/28/16 at 12:00; Stop 05/28/16 at 12:01; Status DC Magnesium Sulfate/ Dextrose (Magnesium Sulfate PREMIX 2GM) 50 ml @ 25 mls/hr 1X ONCE IV ; Start 05/28/16 at 12:15; Stop 05/28/16 at 14:14; Status DC Lactulose 20 gm 20 gm BID PO Last administered on 05/30/16 08:26; Start at 12:45 Magnesium Sulfate/ Dextrose (Magnesium Sulfate PREMIX 2GM) 50 ml @ 25 mls/hr 1X ONCE IV ; Start 05/28/16 at 13:00; Stop 05/28/16 at 14:59; Status UNV Potassium Chloride (Klor-Con) 20 meq 1X ONCE PO ; Start 05/28/16 at 19:00; Stop 05/28/16 at 19:01; Status UNV Metronidazole (Flagyl) 500 mg Q8HRS PO Last administered on 05/30/16 05:02; Start 05/28/16 at 22:00 Quetiapine Fumarate (SEROquel) 25 mg QHS PO Last administered on 05/29/16 22: 08; Start 05/28/16 at 21:00 Active Scripts Active Reported Lortab 7.5-325 mg Tablet (Hydrocodone/Acetaminophen) 1 Each Tablet 1 Tab PO PRN Q6HRS PRN Klor-Con M20 (Potassium Chloride) 20 Meq Tab.er.prt 20 Meq PO BID Lisinopril 40 Mg Tablet 40 Mg PO DAILY Vitals/I & O Vital Sign - Last 24 Hours 05/29/16 05/29/16 05/29/16 05/29/16 10:55 12:34 15:12 19:00 Temp 98.2 99.1 97.8 98.2 99.1 97.8 Pulse 96 95 98 Resp 18 18 20 B/P 113/79 109/77 128/92 Pulse Ox 96 95 97 95 O2 Delivery Room Air Room Air Room Air Room Air 05/29/16 05/29/16 05/29/16 05/29/16 19:54 20:00 22:07 23:02 Temp 98.4 98.4 Pulse 94 Resp 18 20 B/P 124/90 Pulse Ox 95 97 O2 Delivery Room Air Room Air Room Air Room Air 05/29/16 05/30/16 05/30/16 05/30/16 23:07 03:00 05:01 08:00 Temp 98.1 98.1 Pulse 94 Resp 20 20 20 B/P 121/83 Pulse Ox 93 O2 Delivery Room Air Room Air Room Air Room Air Intake and Output 05/29/16 05/29/16 05/30/16 15:00 23:00 07:00 Intake Total 280 ml 300 ml Output Total 300 ml 650 ml Balance 280 ml -300 ml -350 ml Problem List Problems Medical Problems: (1) Ascites Status: Acute Assessment Alcoholic hepatitis, numbers better. Ascites Most of [employer] issues probably w/drawal. May have mild, less than grade I, hepatic encephalopathy. Anorexia likely multifactorial. Can see with active liver disease. Plan of Care: Continue current Tx, Mgmt Plan of Care Note Await resolution of w/drawal. MEME VALE MD May 30, 2016 10:27
[2016-05-30 11:36] VITALS: BP 103/72
--- NOTE | 2016-05-30 12:04 | PDOC ---
PROGRESS NOTES Chief Complaint Chief Complaint metabolic encephalopathy, acute w/. EtOH cirrhosis w/ ascites C. diff colitis 1. EtOH W/D: on CIWA protocol, switched to IV rather than PO. banana bag. 1: 1 sitter 2. C. diff colitis: improving. on flagyl 3. Ascites: s/p tap at [facility]. 4. Pancytopenia: 2/2 EtOH abuse. plts recovering 5. Anemia: macrocytic. prob EtOH related. B12/folate WNL 6. Hyperbilirubinemia: prob EtOH related. sl improved 7. Protein malnutrition: severe. suspect diet related as well as poor hepatic fxn. high protein diet 8. Elevated DDimer: nondiagnostic CTA and low prob VQ scan at [facility]. 9. GI prophylaxis: PPI History of Present Illness History of Present Illness feels better, would like to dc, agitated and upset about care, wants to leave AMA, he is not capable of doing so, cannot comprehend appropriate risk, he is upset about things like not having a change of clothes refused PT today still unsteady, seems to nearly fall when standing noted weakness Vitals Vitals Vital Signs Date Time Temp Pulse Resp B/P Pulse Ox O2 Delivery O2 Flow Rate FiO2 05/30/16 11:36 98.7 96 24 103/72 96 Room Air 98.7 Physical Exam Physical Exam calm and in bed, wanted to discuss discharge General: No acute distress, Other (sedated (ativan)) Heart: Regular rate Lungs: Clear Abdomen: Soft, No tenderness, Other (massive ascites) Extremities: No clubbing, No edema Skin: No rashes Labs LABS Laboratory Tests Test 05/30/16 04:35 White Blood Count 7.2x10^3/uL (4.0-11.0) Red Blood Count 2.72x10^6/uL (4.30-5.70) Hemoglobin 10.0g/dL (13.0-17.5) Hematocrit 30.7% (39.0-53.0) Mean Corpuscular Volume 113fL (79-100) Mean Corpuscular Hemoglobin 37pg (25-35) Mean Corpuscular Hemoglobin Concent 33g/dL (31-37) Red Cell Distribution Width 15.9% (11.5-14.5) Platelet Count 131x10^3/uL (140-400) Neutrophils (%) (Auto) 33% (31-73) Lymphocytes (%) (Auto) 43% (24-48) Monocytes (%) (Auto) 21% (0-9) Eosinophils (%) (Auto) 2% (0-3) Basophils (%) (Auto) 1% (0-3) Neutrophils # (Auto) 2.4x10^3uL (1.8-7.7) Lymphocytes # (Auto) 3.1x10^3/uL (1.0-4.8) Monocytes # (Auto) 1.5x10^3/uL (0.0-1.1) Eosinophils # (Auto) 0.1x10^3/uL (0.0-0.7) Basophils # (Auto) 0.1x10^3/uL (0.0-0.2) Sodium Level 139mmol/L (136-145) Potassium Level 4.0mmol/L (3.5-5.1) Chloride Level 107mmol/L (98-107) Carbon Dioxide Level 26mmol/L (21-32) Anion Gap 6 (6-14) Blood Urea Nitrogen 3mg/dL (8-26) Creatinine 1.0mg/dL (0.7-1.3) Estimated GFR (Cockcroft-Gault) 92.9 BUN/Creatinine Ratio 3 (6-20) Glucose Level 81mg/dL (70-99) Calcium Level 8.0mg/dL (8.5-10.1) Total Bilirubin 1.8mg/dL (0.2-1.0) Aspartate Amino Transf (AST/SGOT) 75U/L (15-37) Alanine Aminotransferase (ALT/SGPT) 15U/L (16-63) Alkaline Phosphatase 130U/L (46-116) Total Protein 5.8g/dL (6.4-8.2) Albumin 1.6g/dL (3.4-5.0) Albumin/Globulin Ratio 0.4 (1.0-1.7) Assessment and Plan Assessmemt and Plan cont current. hope encephalopathy improved not safe to DC, Problems Medical Problems: (1) Ascites Status: Acute Problems: Comment Review of Relevant I have reviewed the following items mary (where applicable) has been applied. Labs Laboratory Tests Test 05/29/16 08:05 05/29/16 09:10 1/11/17 04:35 White Blood Count 7.4x10^3/uL (4.0-11.0) 7.2x10^3/uL (4.0-11.0) Red Blood Count 2.95x10^6/uL (4.30-5.70) 2.72x10^6/uL (4.30-5.70) Hemoglobin 10.7g/dL (13.0-17.5) 10.0g/dL (13.0-17.5) Hematocrit 32.9% (39.0-53.0) 30.7% (39.0-53.0) Mean Corpuscular Volume 111fL (79-100) 113fL (79-100) Mean Corpuscular Hemoglobin 36pg (25-35) 37pg (25-35) Mean Corpuscular Hemoglobin Concent 33g/dL (31-37) 33g/dL (31-37) Red Cell Distribution Width 15.8% (11.5-14.5) 15.9% (11.5-14.5) Platelet Count 116x10^3/uL (140-400) 131x10^3/uL (140-400) Neutrophils (%) (Auto) 41% (31-73) 33% (31-73) Lymphocytes (%) (Auto) 33% (24-48) 43% (24-48) Monocytes (%) (Auto) 24% (0-9) 21% (0-9) Eosinophils (%) (Auto) 2% (0-3) 2% (0-3) Basophils (%) (Auto) 1% (0-3) 1% (0-3) Neutrophils # (Auto) 3.0x10^3uL (1.8-7.7) 2.4x10^3uL (1.8-7.7) Lymphocytes # (Auto) 2.4x10^3/uL (1.0-4.8) 3.1x10^3/uL (1.0-4.8) Monocytes # (Auto) 1.8x10^3/uL (0.0-1.1) 1.5x10^3/uL (0.0-1.1) Eosinophils # (Auto) 0.2x10^3/uL (0.0-0.7) 0.1x10^3/uL (0.0-0.7) Basophils # (Auto) 0.0x10^3/uL (0.0-0.2) 0.1x10^3/uL (0.0-0.2) Sodium Level 140mmol/L (136-145) 139mmol/L (136-145) Potassium Level 3.6mmol/L (3.5-5.1) 4.0mmol/L (3.5-5.1) Chloride Level 106mmol/L (98-107) 107mmol/L (98-107) Carbon Dioxide Level 26mmol/L (21-32) 26mmol/L (21-32) Anion Gap 8 (6-14) 6 (6-14) Blood Urea Nitrogen 4mg/dL (8-26) 3mg/dL (8-26) Creatinine 1.1mg/dL (0.7-1.3) 1.0mg/dL (0.7-1.3) Estimated GFR (Cockcroft-Gault) 83.2 92.9 BUN/Creatinine Ratio 4 (6-20) 3 (6-20) Glucose Level 81mg/dL (70-99) 81mg/dL (70-99) Calcium Level 7.7mg/dL (8.5-10.1) 8.0mg/dL (8.5-10.1) Total Bilirubin 2.4mg/dL (0.2-1.0) 1.8mg/dL (0.2-1.0) Aspartate Amino Transf (AST/SGOT) 84U/L (15-37) 75U/L (15-37) Alanine Aminotransferase (ALT/SGPT) 21U/L (16-63) 15U/L (16-63) Alkaline Phosphatase 145U/L (46-116) 130U/L (46-116) Total Protein 5.8g/dL (6.4-8.2) 5.8g/dL (6.4-8.2) Albumin 1.9g/dL (3.4-5.0) 1.6g/dL (3.4-5.0) Albumin/Globulin Ratio 0.5 (1.0-1.7) 0.4 (1.0-1.7) Prothrombin Time 18.4SEC (11.7-14.0) Prothromb Time International Ratio 1.6 (0.8-1.1) Laboratory Tests Test 05/30/16 04:35 White Blood Count 7.2x10^3/uL (4.0-11.0) Red Blood Count 2.72x10^6/uL (4.30-5.70) Hemoglobin 10.0g/dL (13.0-17.5) Hematocrit 30.7% (39.0-53.0) Mean Corpuscular Volume 113fL (79-100) Mean Corpuscular Hemoglobin 37pg (25-35) Mean Corpuscular Hemoglobin Concent 33g/dL (31-37) Red Cell Distribution Width 15.9% (11.5-14.5) Platelet Count 131x10^3/uL (140-400) Neutrophils (%) (Auto) 33% (31-73) Lymphocytes (%) (Auto) 43% (24-48) Monocytes (%) (Auto) 21% (0-9) Eosinophils (%) (Auto) 2% (0-3) Basophils (%) (Auto) 1% (0-3) Neutrophils # (Auto) 2.4x10^3uL (1.8-7.7) Lymphocytes # (Auto) 3.1x10^3/uL (1.0-4.8) Monocytes # (Auto) 1.5x10^3/uL (0.0-1.1) Eosinophils # (Auto) 0.1x10^3/uL (0.0-0.7) Basophils # (Auto) 0.1x10^3/uL (0.0-0.2) Sodium Level 139mmol/L (136-145) Potassium Level 4.0mmol/L (3.5-5.1) Chloride Level 107mmol/L (98-107) Carbon Dioxide Level 26mmol/L (21-32) Anion Gap 6 (6-14) Blood Urea Nitrogen 3mg/dL (8-26) Creatinine 1.0mg/dL (0.7-1.3) Estimated GFR (Cockcroft-Gault) 92.9 BUN/Creatinine Ratio 3 (6-20) Glucose Level 81mg/dL (70-99) Calcium Level 8.0mg/dL (8.5-10.1) Total Bilirubin 1.8mg/dL (0.2-1.0) Aspartate Amino Transf (AST/SGOT) 75U/L (15-37) Alanine Aminotransferase (ALT/SGPT) 15U/L (16-63) Alkaline Phosphatase 130U/L (46-116) Total Protein 5.8g/dL (6.4-8.2) Albumin 1.6g/dL (3.4-5.0) Albumin/Globulin Ratio 0.4 (1.0-1.7) Medications Current Medications Haloperidol Lactate (Haldol) 5 mg PRN Q2HRS PRN IVP AGITATION Last administered on 05/27/16 23:03; Start 05/24/16 at 14:30 Ondansetron HCl (Zofran) 4 mg PRN Q6HRS PRN IV NAUSEA/VOMITING; Start 05/24/16 at 14:30; Stop 05/26/16 at 16:06; Status DC Calcium Carbonate/ Glycine (Tums) 500 mg PRN Q3HRS PRN PO HEARTBURN / GAS; Start 05/24/16 at 14:30 Famotidine (Pepcid) 20 mg BID PO Last administered on 05/30/16 08:26; Start at 21:00 Enoxaparin Sodium (Lovenox 40mg Syringe) 80 mg BID SQ ; Start 05/24/16 at 21:00; Status UNV Sodium Chloride (Normal Saline Flush) 3 ml QSHIFT PRN IV AFTER MEDS AND BLOOD DRAWS; Start 05/24/16 at 14:30 Acetaminophen/ Hydrocodone Bitart 1 tab 1 tab PRN Q4HRS PRN PO pain Last administered on 05/30/16 11:36; Start 05/24/16 at 14:30 Multivitamins/ Minerals/Thiamine HCl/Sodium Chloride (Infuvite Adult/ Iv Sodium Chloride 0.9% 1000ml Bag) 1,011 ml @ 99.981 mls/ hr DAILY IV Last administered on 05/28/16 09:23; Start 05/24/16 at 15:00; Stop 05/30/16 at 14:59 Lorazepam (Ativan) 4 mg PRN Q1HR PRN PO For CIWA 8-14 Last administered on 05/30 08:27; Start 05/24/16 at 14:45 Lorazepam (Ativan) 8 mg PRN Q1HR PRN PO For CIWA 15 or greater Last administered on 05/30/16 05:01; Start 05/24/16 at 14:45 Clonidine HCl 0.1 mg 0.1 mg PRN Q1HR PRN PO SBP > 180 or DBP > 100, MRX3; Start 05/24/16 at 14:45 Metronidazole (FLAGYL 500Mmg PREMIX) 100 ml @ 100 mls/hr Q8HRS IV Last administered on 05/28/16 05:39; Start 05/24/16 at 15:00; Stop 05/28/16 at 18:03; Status DC Diphenhydramine HCl (Benadryl) 25 mg PRN Q6HRS PRN IVP ITCHING Last administered on 05/28/16 02:47; Start 05/24/16 at 16:15 Albuterol/ Ipratropium (Duoneb) 3 ml QIDPRN PRN NEB WHEEZING Last administered on 05/27/16 22:53; Start 05/24/16 at 16:15; Stop 05/28/16 at 00:52; Status DC Ondansetron HCl (Zofran) 4 mg PRN Q6HRS PRN IV NAUSEA/VOMITING; Start 05/24/16 at 16:15 Spironolactone (Aldactone) 100 mg DAILY PO Last administered on 05/30/16 08:26 ; Start 05/25/16 at 09:00 Lorazepam (Ativan) 2 mg PRN Q1HR PRN IV For CIWA 8-14 Last administered on 09:27; Start 05/26/16 at 16:45 Lorazepam (Ativan) 4 mg PRN Q1HR PRN IV For CIWA 15 or greater; Start 05/26/16 at 16:45 Acetaminophen (Tylenol) 650 mg PRN Q6HRS PRN PO MILD PAIN / TEMP Last administered on 05/28/16 01:12; Start 05/28/16 at 01:00 Albuterol Sulfate (Ventolin Neb Soln) 2.5 mg PRN QID PRN NEB WHEEZING Last administered on 05/29/16 19:52; Start 05/28/16 at 00:52 Potassium Chloride (Klor-Con) 20 meq DAILYWBKFT PO Last administered on 08:26; Start 05/29/16 at 08:00 Potassium Chloride 40 meq 40 meq 1X ONCE PO Last administered on 05/28/16 13: 29; Start 05/28/16 at 12:00; Stop 05/28/16 at 12:01; Status DC Magnesium Sulfate/ Dextrose (Magnesium Sulfate PREMIX 2GM) 50 ml @ 25 mls/hr 1X ONCE IV ; Start 05/28/16 at 12:15; Stop 05/28/16 at 14:14; Status DC Lactulose 20 gm 20 gm BID PO Last administered on 05/30/16 08:26; Start at 12:45 Magnesium Sulfate/ Dextrose (Magnesium Sulfate PREMIX 2GM) 50 ml @ 25 mls/hr 1X ONCE IV ; Start 05/28/16 at 13:00; Stop 05/28/16 at 14:59; Status UNV Potassium Chloride (Klor-Con) 20 meq 1X ONCE PO ; Start 05/28/16 at 19:00; Stop 05/28/16 at 19:01; Status UNV Metronidazole (Flagyl) 500 mg Q8HRS PO Last administered on 05/30/16 05:02; Start 05/28/16 at 22:00 Quetiapine Fumarate (SEROquel) 25 mg QHS PO Last administered on 05/29/16 22: 08; Start 05/28/16 at 21:00 Active Scripts Active Reported Lortab 7.5-325 mg Tablet (Hydrocodone/Acetaminophen) 1 Each Tablet 1 Tab PO PRN Q6HRS PRN Klor-Con M20 (Potassium Chloride) 20 Meq Tab.er.prt 20 Meq PO BID Lisinopril 40 Mg Tablet 40 Mg PO DAILY Vitals/I & O Vital Sign - Last 24 Hours 05/29/16 05/29/16 05/29/16 05/29/16 12:34 15:12 19:00 19:54 Temp 99.1 97.8 99.1 97.8 Pulse 95 98 Resp 18 20 B/P 109/77 128/92 Pulse Ox 95 97 95 95 O2 Delivery Room Air Room Air Room Air Room Air 05/29/16 05/29/16 05/29/16 05/29/16 20:00 22:07 23:02 23:07 Temp 98.4 98.4 Pulse 94 Resp 18 20 20 B/P 124/90 Pulse Ox 97 O2 Delivery Room Air Room Air Room Air Room Air 05/30/16 05/30/16 05/30/16 05/30/16 03:00 05:01 08:00 11:36 Temp 98.1 98.1 Pulse 94 Resp 20 20 B/P 121/83 Pulse Ox 93 O2 Delivery Room Air Room Air Room Air Room Air 05/30/16 11:36 Temp 98.7 98.7 Pulse 96 Resp 24 B/P 103/72 Pulse Ox 96 O2 Delivery Room Air Intake and Output 05/29/16 05/29/16 05/30/16 15:00 23:00 07:00 Intake Total 280 ml 300 ml Output Total 300 ml 650 ml Balance 280 ml -300 ml -350 ml LAVONNE JOEL MD May 30, 2016 12:04
--- NOTE | 2016-05-30 15:24 | PDOC2 ---
NEUROLOGY CONSULT Date of Admission Date of Admission DATE: 05/30/16 TIME: 15:17 Reason for Consult Reason for Consult: Metabolic encephalopathy, hepatic Referring Physician Referring Physician: Dr. Berrios PCP: Dr. Conley Source Source: Caregiver, Chart review, Patient History of Present Illness History of Present Illness The patient is a 56-year-old right-handed male originally admitted to [facility] 9 days ago with ascites, hepatic encephalopathy, alcohol withdrawal , and possible sepsis. He had paracentesis and then later was found to have C. difficile colitis it was transferred here on 05/24. according to the sister, the patient has long-standing liver disease and alcoholism. She is wondering about the prognosis. The patient has never had a stroke, seizure, or significant head injury. Past Medical History Cardiovascular: HTN Pulmonary: Asthma Hepatobiliary: Cirrhosis (Alcoholic with esophageal varices) Psych: Addictions ( alcoholism), Depression Musculoskeletal: Osteoarthritis Rheumatologic: Gout Renal/: Other ( urinary retention) Past Surgical History Past Surgical History: No pertinent history Family History Family History: CAD Social History Social History , continues to drink alcohol, occasional tobacco. Current Medications Current Medications Current Medications Haloperidol Lactate (Haldol) 5 mg PRN Q2HRS PRN IVP AGITATION Last administered on 05/27/16 23:03; Start 05/24/16 at 14:30 Ondansetron HCl (Zofran) 4 mg PRN Q6HRS PRN IV NAUSEA/VOMITING; Start 05/24/16 at 14:30; Stop 05/26/16 at 16:06; Status DC Calcium Carbonate/ Glycine (Tums) 500 mg PRN Q3HRS PRN PO HEARTBURN / GAS; Start 05/24/16 at 14:30 Famotidine (Pepcid) 20 mg BID PO Last administered on 05/30/16 08:26; Start at 21:00 Enoxaparin Sodium (Lovenox 40mg Syringe) 80 mg BID SQ ; Start 05/24/16 at 21:00; Status UNV Sodium Chloride (Normal Saline Flush) 3 ml QSHIFT PRN IV AFTER MEDS AND BLOOD DRAWS; Start 05/24/16 at 14:30 Acetaminophen/ Hydrocodone Bitart 1 tab 1 tab PRN Q4HRS PRN PO pain Last administered on 05/30/16 11:36; Start 05/24/16 at 14:30 Multivitamins/ Minerals/Thiamine HCl/Sodium Chloride (Infuvite Adult/ Iv Sodium Chloride 0.9% 1000ml Bag) 1,011 ml @ 99.981 mls/ hr DAILY IV Last administered on 05/28/16 09:23; Start 05/24/16 at 15:00; Stop 05/30/16 at 14:59; Status DC Lorazepam (Ativan) 4 mg PRN Q1HR PRN PO For CIWA 8-14 Last administered on 05/30 14:25; Start 05/24/16 at 14:45 Lorazepam (Ativan) 8 mg PRN Q1HR PRN PO For CIWA 15 or greater Last administered on 05/30/16 05:01; Start 05/24/16 at 14:45 Clonidine HCl 0.1 mg 0.1 mg PRN Q1HR PRN PO SBP > 180 or DBP > 100, MRX3; Start 05/24/16 at 14:45 Metronidazole (FLAGYL 500Mmg PREMIX) 100 ml @ 100 mls/hr Q8HRS IV Last administered on 05/28/16 05:39; Start 05/24/16 at 15:00; Stop 05/28/16 at 18:03; Status DC Diphenhydramine HCl (Benadryl) 25 mg PRN Q6HRS PRN IVP ITCHING Last administered on 05/28/16 02:47; Start 05/24/16 at 16:15 Albuterol/ Ipratropium (Duoneb) 3 ml QIDPRN PRN NEB WHEEZING Last administered on 05/27/16 22:53; Start 05/24/16 at 16:15; Stop 05/28/16 at 00:52; Status DC Ondansetron HCl (Zofran) 4 mg PRN Q6HRS PRN IV NAUSEA/VOMITING; Start 05/24/16 at 16:15 Spironolactone (Aldactone) 100 mg DAILY PO Last administered on 05/30/16 08:26 ; Start 05/25/16 at 09:00 Lorazepam (Ativan) 2 mg PRN Q1HR PRN IV For CIWA 8-14 Last administered on 09:27; Start 05/26/16 at 16:45 Lorazepam (Ativan) 4 mg PRN Q1HR PRN IV For CIWA 15 or greater; Start 05/26/16 at 16:45 Acetaminophen (Tylenol) 650 mg PRN Q6HRS PRN PO MILD PAIN / TEMP Last administered on 05/28/16 01:12; Start 05/28/16 at 01:00 Albuterol Sulfate (Ventolin Neb Soln) 2.5 mg PRN QID PRN NEB WHEEZING Last administered on 05/29/16 19:52; Start 05/28/16 at 00:52 Potassium Chloride (Klor-Con) 20 meq DAILYWBKFT PO Last administered on 08:26; Start 05/29/16 at 08:00 Potassium Chloride 40 meq 40 meq 1X ONCE PO Last administered on 05/28/16 13: 29; Start 05/28/16 at 12:00; Stop 05/28/16 at 12:01; Status DC Magnesium Sulfate/ Dextrose (Magnesium Sulfate PREMIX 2GM) 50 ml @ 25 mls/hr 1X ONCE IV ; Start 05/28/16 at 12:15; Stop 05/28/16 at 14:14; Status DC Lactulose 20 gm 20 gm BID PO Last administered on 05/30/16 08:26; Start at 12:45 Magnesium Sulfate/ Dextrose (Magnesium Sulfate PREMIX 2GM) 50 ml @ 25 mls/hr 1X ONCE IV ; Start 05/28/16 at 13:00; Stop 05/28/16 at 14:59; Status UNV Potassium Chloride (Klor-Con) 20 meq 1X ONCE PO ; Start 05/28/16 at 19:00; Stop 05/28/16 at 19:01; Status UNV Metronidazole (Flagyl) 500 mg Q8HRS PO Last administered on 05/30/16 14:24; Start 05/28/16 at 22:00 Quetiapine Fumarate (SEROquel) 25 mg QHS PO Last administered on 05/29/16 22: 08; Start 05/28/16 at 21:00 Active Scripts Active Reported Lortab 7.5-325 mg Tablet (Hydrocodone/Acetaminophen) 1 Each Tablet 1 Tab PO PRN Q6HRS PRN Klor-Con M20 (Potassium Chloride) 20 Meq Tab.er.prt 20 Meq PO BID Lisinopril 40 Mg Tablet 40 Mg PO DAILY Allergies Allergies: Coded Allergies: Penicillins (Unverified Allergy, Intermediate, 11/28/13) Sulfa (Sulfonamide Antibiotics) (Unverified Allergy, Intermediate, 11/28/13 ) folic acid (Verified Allergy, Intermediate, hives and severe itching, ) ROS Review of System Negative for fevers, chills, weight loss, shortness of breath, chest pain, indigestion, hematochezia, melena, dysuria. Full 14-point review systems is negative. Physical Exam Physical Examination PHYSICAL EXAMINATION: Vital signs: see above. General appearance is normal and in no acute distress. HEENT: Normocephalic and nontraumatic. Eyes, nose, ears, and throat are unremarkable. Neck is supple. No lymphadenopathy. No bruits are heard over the carotid artery. No crepitus. NEUROLOGICAL EXAMINATION: Mental Status Examination: Alert. Does not note date or location. Confabulation. Pupils are equal round and reactive to light and accommodation. Funduscopic exam: No papilledema. Extraocular movements are intact. Visual field exam shows no defect on the direct confrontation. No motor or sensory deficits on the facial exam. Uvula in the midline and the soft palate elevated symmetrically. No deviation of the tongue to any direction. Gross hearing is normal. Shoulder shrug normal. Muscle tone is normal. Muscle strength is 5. Deep tendon reflexes are 2+ all around. Plantar reflex is with flexion response bilaterally. [id number] test performance is accurate. Alternative movements are accurate. Gait not tested. Sensory exam shows no deficits. No cerebellar signs are elicited. Vitals VITALS Vital Signs Date Time Temp Pulse Resp B/P Pulse Ox O2 Delivery O2 Flow Rate FiO2 05/30/16 11:36 98.7 96 24 103/72 96 Room Air 98.7 Labs Labs Laboratory Tests Test 05/29/16 08:05 05/29/16 09:10 05/30/16 04:35 White Blood Count 7.4x10^3/uL (4.0-11.0) 7.2x10^3/uL (4.0-11.0) Red Blood Count 2.95x10^6/uL (4.30-5.70) 2.72x10^6/uL (4.30-5.70) Hemoglobin 10.7g/dL (13.0-17.5) 10.0g/dL (13.0-17.5) Hematocrit 32.9% (39.0-53.0) 30.7% (39.0-53.0) Mean Corpuscular Volume 111fL (79-100) 113fL (79-100) Mean Corpuscular Hemoglobin 36pg (25-35) 37pg (25-35) Mean Corpuscular Hemoglobin Concent 33g/dL (31-37) 33g/dL (31-37) Red Cell Distribution Width 15.8% (11.5-14.5) 15.9% (11.5-14.5) Platelet Count 116x10^3/uL (140-400) 131x10^3/uL (140-400) Neutrophils (%) (Auto) 41% (31-73) 33% (31-73) Lymphocytes (%) (Auto) 33% (24-48) 43% (24-48) Monocytes (%) (Auto) 24% (0-9) 21% (0-9) Eosinophils (%) (Auto) 2% (0-3) 2% (0-3) Basophils (%) (Auto) 1% (0-3) 1% (0-3) Neutrophils # (Auto) 3.0x10^3uL (1.8-7.7) 2.4x10^3uL (1.8-7.7) Lymphocytes # (Auto) 2.4x10^3/uL (1.0-4.8) 3.1x10^3/uL (1.0-4.8) Monocytes # (Auto) 1.8x10^3/uL (0.0-1.1) 1.5x10^3/uL (0.0-1.1) Eosinophils # (Auto) 0.2x10^3/uL (0.0-0.7) 0.1x10^3/uL (0.0-0.7) Basophils # (Auto) 0.0x10^3/uL (0.0-0.2) 0.1x10^3/uL (0.0-0.2) Sodium Level 140mmol/L (136-145) 139mmol/L (136-145) Potassium Level 3.6mmol/L (3.5-5.1) 4.0mmol/L (3.5-5.1) Chloride Level 106mmol/L (98-107) 107mmol/L (98-107) Carbon Dioxide Level 26mmol/L (21-32) 26mmol/L (21-32) Anion Gap 8 (6-14) 6 (6-14) Blood Urea Nitrogen 4mg/dL (8-26) 3mg/dL (8-26) Creatinine 1.1mg/dL (0.7-1.3) 1.0mg/dL (0.7-1.3) Estimated GFR (Cockcroft-Gault) 83.2 92.9 BUN/Creatinine Ratio 4 (6-20) 3 (6-20) Glucose Level 81mg/dL (70-99) 81mg/dL (70-99) Calcium Level 7.7mg/dL (8.5-10.1) 8.0mg/dL (8.5-10.1) Total Bilirubin 2.4mg/dL (0.2-1.0) 1.8mg/dL (0.2-1.0) Aspartate Amino Transf (AST/SGOT) 84U/L (15-37) 75U/L (15-37) Alanine Aminotransferase (ALT/SGPT) 21U/L (16-63) 15U/L (16-63) Alkaline Phosphatase 145U/L (46-116) 130U/L (46-116) Total Protein 5.8g/dL (6.4-8.2) 5.8g/dL (6.4-8.2) Albumin 1.9g/dL (3.4-5.0) 1.6g/dL (3.4-5.0) Albumin/Globulin Ratio 0.5 (1.0-1.7) 0.4 (1.0-1.7) Prothrombin Time 18.4SEC (11.7-14.0) Prothromb Time International Ratio 1.6 (0.8-1.1) Laboratory Tests Test 05/30/16 04:35 White Blood Count 7.2x10^3/uL (4.0-11.0) Red Blood Count 2.72x10^6/uL (4.30-5.70) Hemoglobin 10.0g/dL (13.0-17.5) Hematocrit 30.7% (39.0-53.0) Mean Corpuscular Volume 113fL (79-100) Mean Corpuscular Hemoglobin 37pg (25-35) Mean Corpuscular Hemoglobin Concent 33g/dL (31-37) Red Cell Distribution Width 15.9% (11.5-14.5) Platelet Count 131x10^3/uL (140-400) Neutrophils (%) (Auto) 33% (31-73) Lymphocytes (%) (Auto) 43% (24-48) Monocytes (%) (Auto) 21% (0-9) Eosinophils (%) (Auto) 2% (0-3) Basophils (%) (Auto) 1% (0-3) Neutrophils # (Auto) 2.4x10^3uL (1.8-7.7) Lymphocytes # (Auto) 3.1x10^3/uL (1.0-4.8) Monocytes # (Auto) 1.5x10^3/uL (0.0-1.1) Eosinophils # (Auto) 0.1x10^3/uL (0.0-0.7) Basophils # (Auto) 0.1x10^3/uL (0.0-0.2) Sodium Level 139mmol/L (136-145) Potassium Level 4.0mmol/L (3.5-5.1) Chloride Level 107mmol/L (98-107) Carbon Dioxide Level 26mmol/L (21-32) Anion Gap 6 (6-14) Blood Urea Nitrogen 3mg/dL (8-26) Creatinine 1.0mg/dL (0.7-1.3) Estimated GFR (Cockcroft-Gault) 92.9 BUN/Creatinine Ratio 3 (6-20) Glucose Level 81mg/dL (70-99) Calcium Level 8.0mg/dL (8.5-10.1) Total Bilirubin 1.8mg/dL (0.2-1.0) Aspartate Amino Transf (AST/SGOT) 75U/L (15-37) Alanine Aminotransferase (ALT/SGPT) 15U/L (16-63) Alkaline Phosphatase 130U/L (46-116) Total Protein 5.8g/dL (6.4-8.2) Albumin 1.6g/dL (3.4-5.0) Albumin/Globulin Ratio 0.4 (1.0-1.7) Assessment/Plan Assessment/Plan Impression: Hepatic encephalopathy, alcoholic dementia Recommendations: I discussed with the patient sister the poor prognosis. As I arrived on the floor, a code encarnacion was just being finished on this patient. He is now calm, but he will need 1:1 nursing Consider geriatric psychiatry I see no need for additional studies such as CT, lumbar puncture, electroencephalogram Also discussed with Dr. Berrios. Thank you for letting me help with the patient's care. DINORA MCDOWELL MD May 30, 2016 15:24
[2016-05-30 18:51] VITALS: BP 118/85
[2016-05-30] MEDS: QUEtiapine 25 MG TABLET. PO SCH (20:45)
[2016-05-30 22:00] VITALS: BP 98/68
[2016-05-30] MEDS: ALBUTEROL SULFATE 2.5 MG/3 ML NEBU. NEB PRN (23:13)
[2016-05-31] MEDS: LORAZEPAM 1 MG TABLET. PO PRN ×4 (02:35→21:11)
[2016-05-31 02:55] VITALS: BP 110/77
[2016-05-31] MEDS: METRONIDAZOLE 500 MG TABLET. PO SCH (05:53)
[2016-05-31 07:25] VITALS: BP 102/70
[2016-05-31] MEDS: HYDROCODONE/APAP 5/325MG TABLET. PO PRN ×3 (08:26→13:16)
[2016-05-31] MEDS: ALBUTEROL SULFATE 2.5 MG/3 ML NEBU. NEB PRN ×3 (08:59→21:35)
--- NOTE | 2016-05-31 10:12 | PDOC ---
Infectious Disease Note Vital Sign Vital Signs Vital Signs Date Time Temp Pulse Resp B/P Pulse Ox O2 Delivery O2 Flow Rate FiO2 05/31/16 08:59 Room Air 05/31/16 07:25 98.3 93 16 102/70 94 98.3 Objective Assessment C diff Lactic acidosis Cirrhosis of liver ETOH abuse Dementia Debility Plan Plan of Care change flagyl to po vanc supportive care quit etoh ABHIJEET CUADRA MD May 31, 2016 10:12
[2016-05-31 10:26] VITALS: BP 110/60
--- NOTE | 2016-05-31 11:19 | PDOC ---
PROGRESS NOTES Chief Complaint Chief Complaint metabolic encephalopathy, acute w/. EtOH cirrhosis w/ ascites C. diff colitis 1. EtOH W/D: on CIWA protocol, switched to IV rather than PO. banana bag. 1: 1 sitter 2. C. diff colitis: improving. on flagyl 3. Ascites: s/p tap at [facility]. 4. Pancytopenia: 2/2 EtOH abuse. plts recovering 5. Anemia: macrocytic. prob EtOH related. B12/folate WNL 6. Hyperbilirubinemia: prob EtOH related. sl improved 7. Protein malnutrition: severe. suspect diet related as well as poor hepatic fxn. high protein diet 8. Elevated DDimer: nondiagnostic CTA and low prob VQ scan at [facility]. 9. GI prophylaxis: PPI History of Present Illness History of Present Illness feels better, would like to dc, still confused discussed with sister by phone yesterday still unsteady, seems to nearly fall when standing noted weakness Vitals Vitals Vital Signs Date Time Temp Pulse Resp B/P Pulse Ox O2 Delivery O2 Flow Rate FiO2 05/31/16 10:26 98.8 109 20 110/60 96 Room Air 98.8 Physical Exam Physical Exam calm and in bed, wanted to discuss discharge General: No acute distress, Other (sedated (ativan)) Heart: Regular rate Lungs: Clear Abdomen: Soft, No tenderness, Other (massive ascites) Extremities: No clubbing, No edema Skin: No rashes Review of Systems Review of Systems no n.v. + diarrhea Assessment and Plan Assessmemt and Plan abx changed to PO vanc, discussed with ID consult Problems Medical Problems: (1) Ascites Status: Acute Problems: Comment Review of Relevant I have reviewed the following items mary (where applicable) has been applied. Labs Laboratory Tests Test 05/30/16 04:35 White Blood Count 7.2x10^3/uL (4.0-11.0) Red Blood Count 2.72x10^6/uL (4.30-5.70) Hemoglobin 10.0g/dL (13.0-17.5) Hematocrit 30.7% (39.0-53.0) Mean Corpuscular Volume 113fL (79-100) Mean Corpuscular Hemoglobin 37pg (25-35) Mean Corpuscular Hemoglobin Concent 33g/dL (31-37) Red Cell Distribution Width 15.9% (11.5-14.5) Platelet Count 131x10^3/uL (140-400) Neutrophils (%) (Auto) 33% (31-73) Lymphocytes (%) (Auto) 43% (24-48) Monocytes (%) (Auto) 21% (0-9) Eosinophils (%) (Auto) 2% (0-3) Basophils (%) (Auto) 1% (0-3) Neutrophils # (Auto) 2.4x10^3uL (1.8-7.7) Lymphocytes # (Auto) 3.1x10^3/uL (1.0-4.8) Monocytes # (Auto) 1.5x10^3/uL (0.0-1.1) Eosinophils # (Auto) 0.1x10^3/uL (0.0-0.7) Basophils # (Auto) 0.1x10^3/uL (0.0-0.2) Sodium Level 139mmol/L (136-145) Potassium Level 4.0mmol/L (3.5-5.1) Chloride Level 107mmol/L (98-107) Carbon Dioxide Level 26mmol/L (21-32) Anion Gap 6 (6-14) Blood Urea Nitrogen 3mg/dL (8-26) Creatinine 1.0mg/dL (0.7-1.3) Estimated GFR (Cockcroft-Gault) 92.9 BUN/Creatinine Ratio 3 (6-20) Glucose Level 81mg/dL (70-99) Calcium Level 8.0mg/dL (8.5-10.1) Total Bilirubin 1.8mg/dL (0.2-1.0) Aspartate Amino Transf (AST/SGOT) 75U/L (15-37) Alanine Aminotransferase (ALT/SGPT) 15U/L (16-63) Alkaline Phosphatase 130U/L (46-116) Total Protein 5.8g/dL (6.4-8.2) Albumin 1.6g/dL (3.4-5.0) Albumin/Globulin Ratio 0.4 (1.0-1.7) Medications Current Medications Haloperidol Lactate (Haldol) 5 mg PRN Q2HRS PRN IVP AGITATION Last administered on 05/27/16t 23:03; Start 05/24/16 at 14:30 Ondansetron HCl (Zofran) 4 mg PRN Q6HRS PRN IV NAUSEA/VOMITING; Start 05/24/16 at 14:30; Stop 05/26/16 at 16:06; Status DC Calcium Carbonate/ Glycine (Tums) 500 mg PRN Q3HRS PRN PO HEARTBURN / GAS; Start 05/24/16 at 14:30 Famotidine (Pepcid) 20 mg BID PO Last administered on 05/30/16 20:45; Start at 21:00 Enoxaparin Sodium (Lovenox 40mg Syringe) 80 mg BID SQ ; Start 05/24/16 at 21:00; Status UNV Sodium Chloride (Normal Saline Flush) 3 ml QSHIFT PRN IV AFTER MEDS AND BLOOD DRAWS; Start 05/24/16 at 14:30 Acetaminophen/ Hydrocodone Bitart 1 tab 1 tab PRN Q4HRS PRN PO pain Last administered on 05/31/16 08:26; Start 05/24/16 at 14:30 Multivitamins/ Minerals/Thiamine HCl/Sodium Chloride (Infuvite Adult/ Iv Sodium Chloride 0.9% 1000ml Bag) 1,011 ml @ 99.981 mls/ hr DAILY IV Last administered on 05/28/16 09:23; Start 05/24/16 at 15:00; Stop 05/30/16 at 14:59; Status DC Lorazepam (Ativan) 4 mg PRN Q1HR PRN PO For CIWA 8-14 Last administered on 05/31 02:35; Start 05/24/16 at 14:45 Lorazepam (Ativan) 8 mg PRN Q1HR PRN PO For CIWA 15 or greater Last administered on 05/31/16 08:26; Start 05/24/16 at 14:45 Clonidine HCl 0.1 mg 0.1 mg PRN Q1HR PRN PO SBP > 180 or DBP > 100, MRX3; Start 05/24/16 at 14:45 Metronidazole (FLAGYL 500Mmg PREMIX) 100 ml @ 100 mls/hr Q8HRS IV Last administered on 05/28/16 05:39; Start 05/24/16 at 15:00; Stop 05/28/16 at 18:03; Status DC Diphenhydramine HCl (Benadryl) 25 mg PRN Q6HRS PRN IVP ITCHING Last administered on 05/28/16 02:47; Start 05/24/16 at 16:15 Albuterol/ Ipratropium (Duoneb) 3 ml QIDPRN PRN NEB WHEEZING Last administered on 05/27/16 22:53; Start 05/24/16 at 16:15; Stop 05/28/16 at 00:52; Status DC Ondansetron HCl (Zofran) 4 mg PRN Q6HRS PRN IV NAUSEA/VOMITING; Start 05/24/16 at 16:15 Spironolactone (Aldactone) 100 mg DAILY PO Last administered on 05/30/16 08:26 ; Start 05/25/16 at 09:00 Lorazepam (Ativan) 2 mg PRN Q1HR PRN IV For CIWA 8-14 Last administered on 09:27; Start 05/26/16 at 16:45 Lorazepam (Ativan) 4 mg PRN Q1HR PRN IV For CIWA 15 or greater; Start 05/26/16 at 16:45 Acetaminophen (Tylenol) 650 mg PRN Q6HRS PRN PO MILD PAIN / TEMP Last administered on 05/28/16 01:12; Start 05/28/16 at 01:00 Albuterol Sulfate (Ventolin Neb Soln) 2.5 mg PRN QID PRN NEB WHEEZING Last administered on 05/31/16 08:59; Start 05/28/16 at 00:52 Potassium Chloride (Klor-Con) 20 meq DAILYWBKFT PO Last administered on 08:26; Start 05/29/16 at 08:00 Potassium Chloride 40 meq 40 meq 1X ONCE PO Last administered on 05/28/16 13: 29; Start 05/28/16 at 12:00; Stop 05/28/16 at 12:01; Status DC Magnesium Sulfate/ Dextrose (Magnesium Sulfate PREMIX 2GM) 50 ml @ 25 mls/hr 1X ONCE IV ; Start 05/28/16 at 12:15; Stop 05/28/16 at 14:14; Status DC Lactulose 20 gm 20 gm BID PO Last administered on 05/30/16 20:45; Start at 12:45 Magnesium Sulfate/ Dextrose (Magnesium Sulfate PREMIX 2GM) 50 ml @ 25 mls/hr 1X ONCE IV ; Start 05/28/16 at 13:00; Stop 05/28/16 at 14:59; Status UNV Potassium Chloride (Klor-Con) 20 meq 1X ONCE PO ; Start 05/28/16 at 19:00; Stop 05/28/16 at 19:01; Status UNV Metronidazole (Flagyl) 500 mg Q8HRS PO Last administered on 05/31/16 05:53; Start 05/28/16 at 22:00; Stop 05/31/16 at 10:02; Status DC Quetiapine Fumarate (SEROquel) 25 mg QHS PO Last administered on 05/30/16 20: 45; Start 05/28/16 at 21:00 Vancomycin HCl 125 mg [id number] PO ; Start 05/31/16 at 10:30 Active Scripts Active Reported Lortab 7.5-325 mg Tablet (Hydrocodone/Acetaminophen) 1 Each Tablet 1 Tab PO PRN Q6HRS PRN Klor-Con M20 (Potassium Chloride) 20 Meq Tab.er.prt 20 Meq PO BID Lisinopril 40 Mg Tablet 40 Mg PO DAILY Vitals/I & O Vital Sign - Last 24 Hours 05/30/16 05/30/16 05/30/16 05/30/16 11:36 11:36 18:51 20:00 Temp 98.7 97.7 98.7 97.7 Pulse 96 101 Resp 24 20 B/P 103/72 118/85 Pulse Ox 96 96 O2 Delivery Room Air Room Air Room Air Room Air 05/30/16 05/30/16 05/30/16 05/30/16 22:00 22:28 23:12 23:28 Temp 100.0 100.0 Pulse 94 Resp 20 B/P 98/68 Pulse Ox 94 94 94 O2 Delivery Room Air Room Air Room Air Room Air 05/31/16 05/31/16 05/31/16 05/31/16 02:55 07:25 08:26 08:59 Temp 98.0 98.3 98.0 98.3 Pulse 98 93 Resp 20 16 B/P 110/77 102/70 Pulse Ox 96 94 O2 Delivery Room Air Room Air Room Air Room Air 05/31/16 10:26 Temp 98.8 98.8 Pulse 109 Resp 20 B/P 110/60 Pulse Ox 96 O2 Delivery Room Air Intake and Output 05/30/16 05/30/16 05/31/16 15:00 23:00 07:00 Intake Total 600 ml Output Total 350 ml Balance 250 ml LAVONNE JOEL MD May 31, 2016 11:19
[2016-05-31] MEDS: LACTULOSE 20 GM/30 ML SOLUTION. PO SCH ×2 (12:17→21:10)
[2016-05-31] MEDS: SPIRONOLACTONE 25 MG TABLET PO SCH (12:17)
[2016-05-31] MEDS: POTASSIUM CHLORIDE 20 MEQ TABLET.ER. PO SCH (12:17)
[2016-05-31] MEDS: LORAZEPAM 2 MG/ML VIAL IV PRN ×2 (12:18→14:54)
[2016-05-31] MEDS: FAMOTIDINE 20 MG TABLET. PO SCH ×2 (12:18→21:10)
[2016-05-31] MEDS: VANCOMYCIN 125 MG/2.5 ML ORAL SOLUTION. PO SCH ×4 (12:18→21:38)
--- NOTE | 2016-05-31 13:04 | PDOC ---
G I PROGRESS NOTE Subjective No specific complaints. Objective Staff report not eating much. Physical Exam Lungs clear. RRR Abdomen soft, not tender. Obvious ascites, not tense. Review of Relevant I have reviewed the following items mary (where applicable) has been applied. Labs Laboratory Tests Test 05/30/16 04:35 White Blood Count 7.2x10^3/uL (4.0-11.0) Red Blood Count 2.72x10^6/uL (4.30-5.70) Hemoglobin 10.0g/dL (13.0-17.5) Hematocrit 30.7% (39.0-53.0) Mean Corpuscular Volume 113fL (79-100) Mean Corpuscular Hemoglobin 37pg (25-35) Mean Corpuscular Hemoglobin Concent 33g/dL (31-37) Red Cell Distribution Width 15.9% (11.5-14.5) Platelet Count 131x10^3/uL (140-400) Neutrophils (%) (Auto) 33% (31-73) Lymphocytes (%) (Auto) 43% (24-48) Monocytes (%) (Auto) 21% (0-9) Eosinophils (%) (Auto) 2% (0-3) Basophils (%) (Auto) 1% (0-3) Neutrophils # (Auto) 2.4x10^3uL (1.8-7.7) Lymphocytes # (Auto) 3.1x10^3/uL (1.0-4.8) Monocytes # (Auto) 1.5x10^3/uL (0.0-1.1) Eosinophils # (Auto) 0.1x10^3/uL (0.0-0.7) Basophils # (Auto) 0.1x10^3/uL (0.0-0.2) Sodium Level 139mmol/L (136-145) Potassium Level 4.0mmol/L (3.5-5.1) Chloride Level 107mmol/L (98-107) Carbon Dioxide Level 26mmol/L (21-32) Anion Gap 6 (6-14) Blood Urea Nitrogen 3mg/dL (8-26) Creatinine 1.0mg/dL (0.7-1.3) Estimated GFR (Cockcroft-Gault) 92.9 BUN/Creatinine Ratio 3 (6-20) Glucose Level 81mg/dL (70-99) Calcium Level 8.0mg/dL (8.5-10.1) Total Bilirubin 1.8mg/dL (0.2-1.0) Aspartate Amino Transf (AST/SGOT) 75U/L (15-37) Alanine Aminotransferase (ALT/SGPT) 15U/L (16-63) Alkaline Phosphatase 130U/L (46-116) Total Protein 5.8g/dL (6.4-8.2) Albumin 1.6g/dL (3.4-5.0) Albumin/Globulin Ratio 0.4 (1.0-1.7) Medications Current Medications Haloperidol Lactate (Haldol) 5 mg PRN Q2HRS PRN IVP AGITATION Last administered on 05/27/16 23:03; Start 05/24/16 at 14:30 Ondansetron HCl (Zofran) 4 mg PRN Q6HRS PRN IV NAUSEA/VOMITING; Start 05/24/16 at 14:30; Stop 05/26/16 at 16:06; Status DC Calcium Carbonate/ Glycine (Tums) 500 mg PRN Q3HRS PRN PO HEARTBURN / GAS; Start 05/24/16 at 14:30 Famotidine (Pepcid) 20 mg BID PO Last administered on 05/31/16 12:18; Start at 21:00 Enoxaparin Sodium (Lovenox 40mg Syringe) 80 mg BID SQ ; Start 05/24/16 at 21:00; Status UNV Sodium Chloride (Normal Saline Flush) 3 ml QSHIFT PRN IV AFTER MEDS AND BLOOD DRAWS; Start 05/24/16 at 14:30 Acetaminophen/ Hydrocodone Bitart 1 tab 1 tab PRN Q4HRS PRN PO pain Last administered on 05/31/16 12:16; Start 05/24/16 at 14:30 Multivitamins/ Minerals/Thiamine HCl/Sodium Chloride (Infuvite Adult/ Iv Sodium Chloride 0.9% 1000ml Bag) 1,011 ml @ 99.981 mls/ hr DAILY IV Last administered on 05/28/16 09:23; Start 05/24/16 at 15:00; Stop 05/30/16 at 14:59; Status DC Lorazepam (Ativan) 4 mg PRN Q1HR PRN PO For CIWA 8-14 Last administered on 05/31 02:35; Start 05/24/16 at 14:45 Lorazepam (Ativan) 8 mg PRN Q1HR PRN PO For CIWA 15 or greater Last administered on 05/31/16 12:36; Start 05/24/16 at 14:45 Clonidine HCl 0.1 mg 0.1 mg PRN Q1HR PRN PO SBP > 180 or DBP > 100, MRX3; Start 05/24/16 at 14:45 Metronidazole (FLAGYL 500Mmg PREMIX) 100 ml @ 100 mls/hr Q8HRS IV Last administered on 05/28/16 05:39; Start 05/24/16 at 15:00; Stop 05/28/16 at 18:03; Status DC Diphenhydramine HCl (Benadryl) 25 mg PRN Q6HRS PRN IVP ITCHING Last administered on 05/28/16 02:47; Start 05/24/16 at 16:15 Albuterol/ Ipratropium (Duoneb) 3 ml QIDPRN PRN NEB WHEEZING Last administered on 05/27/16 22:53; Start 05/24/16 at 16:15; Stop 05/28/16 at 00:52; Status DC Ondansetron HCl (Zofran) 4 mg PRN Q6HRS PRN IV NAUSEA/VOMITING; Start 05/24/16 at 16:15 Spironolactone (Aldactone) 100 mg DAILY PO Last administered on 05/31/16 12:17 ; Start 05/25/16 at 09:00 Lorazepam (Ativan) 2 mg PRN Q1HR PRN IV For CIWA 8-14 Last administered on 09:27; Start 05/26/16 at 16:45 Lorazepam (Ativan) 4 mg PRN Q1HR PRN IV For CIWA 15 or greater; Start 05/26/16 at 16:45 Acetaminophen (Tylenol) 650 mg PRN Q6HRS PRN PO MILD PAIN / TEMP Last administered on 05/28/16 01:12; Start 05/28/16 at 01:00 Albuterol Sulfate (Ventolin Neb Soln) 2.5 mg PRN QID PRN NEB WHEEZING Last administered on 05/31/16 08:59; Start 05/28/16 at 00:52 Potassium Chloride (Klor-Con) 20 meq DAILYWBKFT PO Last administered on 12:17; Start 05/29/16 at 08:00 Potassium Chloride 40 meq 40 meq 1X ONCE PO Last administered on 05/28/16 13: 29; Start 05/28/16 at 12:00; Stop 05/28/16 at 12:01; Status DC Magnesium Sulfate/ Dextrose (Magnesium Sulfate PREMIX 2GM) 50 ml @ 25 mls/hr 1X ONCE IV ; Start 05/28/16 at 12:15; Stop 05/28/16 at 14:14; Status DC Lactulose 20 gm 20 gm BID PO Last administered on 05/31/16 12:17; Start at 12:45 Magnesium Sulfate/ Dextrose (Magnesium Sulfate PREMIX 2GM) 50 ml @ 25 mls/hr 1X ONCE IV ; Start 05/28/16 at 13:00; Stop 05/28/16 at 14:59; Status UNV Potassium Chloride (Klor-Con) 20 meq 1X ONCE PO ; Start 05/28/16 at 19:00; Stop 05/28/16 at 19:01; Status UNV Metronidazole (Flagyl) 500 mg Q8HRS PO Last administered on 05/31/16 05:53; Start 05/28/16 at 22:00; Stop 05/31/16 at 10:02; Status DC Quetiapine Fumarate (SEROquel) 25 mg QHS PO Last administered on 05/30/16 20: 45; Start 05/28/16 at 21:00 Vancomycin HCl 125 mg [id number] PO Last administered on 05/31/16 12:18; Start at 10:30 Active Scripts Active Reported Lortab 7.5-325 mg Tablet (Hydrocodone/Acetaminophen) 1 Each Tablet 1 Tab PO PRN Q6HRS PRN Klor-Con M20 (Potassium Chloride) 20 Meq Tab.er.prt 20 Meq PO BID Lisinopril 40 Mg Tablet 40 Mg PO DAILY Vitals/I & O Vital Sign - Last 24 Hours 05/30/16 05/30/16 05/30/16 05/30/16 18:51 20:00 22:00 22:28 Temp 97.7 100.0 97.7 100.0 Pulse 101 94 Resp 20 20 B/P 118/85 98/68 Pulse Ox 96 94 94 O2 Delivery Room Air Room Air Room Air Room Air 05/30/16 05/30/16 05/31/16 05/31/16 23:12 23:28 02:55 07:25 Temp 98.0 98.3 98.0 98.3 Pulse 98 93 Resp 20 16 B/P 110/77 102/70 Pulse Ox 94 96 94 O2 Delivery Room Air Room Air Room Air 05/31/16 05/31/16 05/31/16 05/31/16 08:26 08:59 09:26 10:26 Temp 98.8 98.8 Pulse 109 Resp 20 B/P 110/60 Pulse Ox 96 O2 Delivery Room Air Room Air Room Air Room Air 05/31/16 12:16 O2 Delivery Room Air Intake and Output 05/30/16 05/30/16 05/31/16 15:00 23:00 07:00 Intake Total 600 ml Output Total 350 ml Balance 250 ml Problem List Problems Medical Problems: (1) Ascites Status: Acute Assessment CLD, likely from ETOH. Ascites C.diff, now on vanc. Plan of Care: Continue current Tx, Mgmt Plan of Care Note Encouraged to eat. MEME VALE MD May 31, 2016 13:04
--- NOTE | 2016-05-31 14:14 | RAD ---
Right shoulder radiographs History: Fall, right shoulder pain. Comparison: None. Findings: AP internal rotation, AP external rotation, and scapular Y-view of the right shoulder. No acute fracture or dislocation is identified. Mild acromioclavicular and glenohumeral degeneration is seen. There is a small calcific density adjacent to the inferior aspect of the glenoid, may be small joint body. Impression: No acute osseous traumatic injury identified.
[2016-05-31 15:22] VITALS: BP 111/79
--- NOTE | 2016-05-31 15:28 | PDOC ---
PROGRESS NOTES Assessment Problems Medical Problems: (1) Ascites Status: Acute Hepatic encephalopathy, better Alcoholic (Korsikoff) dementia Plan 1:1 nursing Consider geriatric psychiatry I see no need for additional studies such as CT, lumbar puncture, electroencephalogram Subjective No complaints Objective Vital Signs Date Time Temp Pulse Resp B/P Pulse Ox O2 Delivery O2 Flow Rate FiO2 05/31/16 14:27 93 Room Air 05/31/16 10:26 98.8 109 20 110/60 98.8 Intake and Output 05/31/16 07:00 Intake Total 600 ml Output Total 350 ml Balance 250 ml Intake Oral 600 ml Stool Total 350 ml # Voids 5 # Bowel Movements 8 PHYSICAL EXAM Alert. He is calm, knows that he is in the hospital but thinks it's [facility], does not know the date.. PERRL. EOMI. CN: no focal findings. Muscle tone: normal. Muscle strength: 5/5 DTR: 1+ Plantar reflex: Flexor Gait: not examined in bed. Sensory exam: no abnormal findings. No cerebellar signs elicited. No asterixis noted Review of Relevant I have reviewed the following items mary (where applicable) has been applied. Labs Laboratory Tests Test 05/30/16 04:35 White Blood Count 7.2x10^3/uL (4.0-11.0) Red Blood Count 2.72x10^6/uL (4.30-5.70) Hemoglobin 10.0g/dL (13.0-17.5) Hematocrit 30.7% (39.0-53.0) Mean Corpuscular Volume 113fL (79-100) Mean Corpuscular Hemoglobin 37pg (25-35) Mean Corpuscular Hemoglobin Concent 33g/dL (31-37) Red Cell Distribution Width 15.9% (11.5-14.5) Platelet Count 131x10^3/uL (140-400) Neutrophils (%) (Auto) 33% (31-73) Lymphocytes (%) (Auto) 43% (24-48) Monocytes (%) (Auto) 21% (0-9) Eosinophils (%) (Auto) 2% (0-3) Basophils (%) (Auto) 1% (0-3) Neutrophils # (Auto) 2.4x10^3uL (1.8-7.7) Lymphocytes # (Auto) 3.1x10^3/uL (1.0-4.8) Monocytes # (Auto) 1.5x10^3/uL (0.0-1.1) Eosinophils # (Auto) 0.1x10^3/uL (0.0-0.7) Basophils # (Auto) 0.1x10^3/uL (0.0-0.2) Sodium Level 139mmol/L (136-145) Potassium Level 4.0mmol/L (3.5-5.1) Chloride Level 107mmol/L (98-107) Carbon Dioxide Level 26mmol/L (21-32) Anion Gap 6 (6-14) Blood Urea Nitrogen 3mg/dL (8-26) Creatinine 1.0mg/dL (0.7-1.3) Estimated GFR (Cockcroft-Gault) 92.9 BUN/Creatinine Ratio 3 (6-20) Glucose Level 81mg/dL (70-99) Calcium Level 8.0mg/dL (8.5-10.1) Total Bilirubin 1.8mg/dL (0.2-1.0) Aspartate Amino Transf (AST/SGOT) 75U/L (15-37) Alanine Aminotransferase (ALT/SGPT) 15U/L (16-63) Alkaline Phosphatase 130U/L (46-116) Total Protein 5.8g/dL (6.4-8.2) Albumin 1.6g/dL (3.4-5.0) Albumin/Globulin Ratio 0.4 (1.0-1.7) Medications Current Medications Haloperidol Lactate (Haldol) 5 mg PRN Q2HRS PRN IVP AGITATION Last administered on 05/27/16 23:03; Start 05/24/16 at 14:30 Ondansetron HCl (Zofran) 4 mg PRN Q6HRS PRN IV NAUSEA/VOMITING; Start 05/24/16 at 14:30; Stop 05/26/16 at 16:06; Status DC Calcium Carbonate/ Glycine (Tums) 500 mg PRN Q3HRS PRN PO HEARTBURN / GAS; Start 05/24/16 at 14:30 Famotidine (Pepcid) 20 mg BID PO Last administered on 05/31/16 12:18; Start at 21:00 Enoxaparin Sodium (Lovenox 40mg Syringe) 80 mg BID SQ ; Start 05/24/16 at 21:00; Status UNV Sodium Chloride (Normal Saline Flush) 3 ml QSHIFT PRN IV AFTER MEDS AND BLOOD DRAWS; Start 05/24/16 at 14:30 Acetaminophen/ Hydrocodone Bitart 1 tab 1 tab PRN Q4HRS PRN PO pain Last administered on 05/31/16 12:16; Start 05/24/16 at 14:30 Multivitamins/ Minerals/Thiamine HCl/Sodium Chloride (Infuvite Adult/ Iv Sodium Chloride 0.9% 1000ml Bag) 1,011 ml @ 99.981 mls/ hr DAILY IV Last administered on 05/28/16 09:23; Start 05/24/16 at 15:00; Stop 05/30/16 at 14:59; Status DC Lorazepam (Ativan) 4 mg PRN Q1HR PRN PO For CIWA 8-14 Last administered on 05/31 02:35; Start 05/24/16 at 14:45 Lorazepam (Ativan) 8 mg PRN Q1HR PRN PO For CIWA 15 or greater Last administered on 05/31/16 12:36; Start 05/24/16 at 14:45 Clonidine HCl 0.1 mg 0.1 mg PRN Q1HR PRN PO SBP > 180 or DBP > 100, MRX3; Start 05/24/16 at 14:45 Metronidazole (FLAGYL 500Mmg PREMIX) 100 ml @ 100 mls/hr Q8HRS IV Last administered on 05/28/16 05:39; Start 05/24/16 at 15:00; Stop 05/28/16 at 18:03; Status DC Diphenhydramine HCl (Benadryl) 25 mg PRN Q6HRS PRN IVP ITCHING Last administered on 05/28/16 02:47; Start 05/24/16 at 16:15 Albuterol/ Ipratropium (Duoneb) 3 ml QIDPRN PRN NEB WHEEZING Last administered on 05/27/16 22:53; Start 05/24/16 at 16:15; Stop 05/28/16 at 00:52; Status DC Ondansetron HCl (Zofran) 4 mg PRN Q6HRS PRN IV NAUSEA/VOMITING; Start 05/24/16 at 16:15 Spironolactone (Aldactone) 100 mg DAILY PO Last administered on 05/31/16 12:17 ; Start 05/25/16 at 09:00 Lorazepam (Ativan) 2 mg PRN Q1HR PRN IV For CIWA 8-14 Last administered on 05/31 14:54; Start 05/26/16 at 16:45 Lorazepam (Ativan) 4 mg PRN Q1HR PRN IV For CIWA 15 or greater; Start 05/26/16 at 16:45 Acetaminophen (Tylenol) 650 mg PRN Q6HRS PRN PO MILD PAIN / TEMP Last administered on 05/28/16 01:12; Start 05/28/16 at 01:00 Albuterol Sulfate (Ventolin Neb Soln) 2.5 mg PRN QID PRN NEB WHEEZING Last administered on 05/31/16 14:26; Start 05/28/16 at 00:52 Potassium Chloride (Klor-Con) 20 meq DAILYWBKFT PO Last administered on 12:17; Start 05/29/16 at 08:00 Potassium Chloride 40 meq 40 meq 1X ONCE PO Last administered on 05/28/16 13: 29; Start 05/28/16 at 12:00; Stop 05/28/16 at 12:01; Status DC Magnesium Sulfate/ Dextrose (Magnesium Sulfate PREMIX 2GM) 50 ml @ 25 mls/hr 1X ONCE IV ; Start 05/28/16 at 12:15; Stop 05/28/16 at 14:14; Status DC Lactulose 20 gm 20 gm BID PO Last administered on 05/31/16 12:17; Start at 12:45 Magnesium Sulfate/ Dextrose (Magnesium Sulfate PREMIX 2GM) 50 ml @ 25 mls/hr 1X ONCE IV ; Start 05/28/16 at 13:00; Stop 05/28/16 at 14:59; Status UNV Potassium Chloride (Klor-Con) 20 meq 1X ONCE PO ; Start 05/28/16 at 19:00; Stop 05/28/16 at 19:01; Status UNV Metronidazole (Flagyl) 500 mg Q8HRS PO Last administered on 05/31/16 05:53; Start 05/28/16 at 22:00; Stop 05/31/16 at 10:02; Status DC Quetiapine Fumarate (SEROquel) 25 mg QHS PO Last administered on 05/30/16 20: 45; Start 05/28/16 at 21:00 Vancomycin HCl 125 mg [id number] PO Last administered on 05/31/16 12:18; Start at 10:30 Active Scripts Active Reported Lortab 7.5-325 mg Tablet (Hydrocodone/Acetaminophen) 1 Each Tablet 1 Tab PO PRN Q6HRS PRN Klor-Con M20 (Potassium Chloride) 20 Meq Tab.er.prt 20 Meq PO BID Lisinopril 40 Mg Tablet 40 Mg PO DAILY Vitals/I & O Vital Sign - Last 24 Hours 05/30/16 05/30/16 05/30/16 05/30/16 18:51 20:00 22:00 22:28 Temp 97.7 100.0 97.7 100.0 Pulse 101 94 Resp 20 20 B/P 118/85 98/68 Pulse Ox 96 94 94 O2 Delivery Room Air Room Air Room Air Room Air 05/30/16 05/30/16 05/31/16 05/31/16 23:12 23:28 02:55 07:25 Temp 98.0 98.3 98.0 98.3 Pulse 98 93 Resp 20 16 B/P 110/77 102/70 Pulse Ox 94 96 94 O2 Delivery Room Air Room Air Room Air 05/31/16 05/31/16 05/31/16 05/31/16 08:26 08:59 09:26 10:26 Temp 98.8 98.8 Pulse 109 Resp 20 B/P 110/60 Pulse Ox 96 O2 Delivery Room Air Room Air Room Air Room Air 05/31/16 05/31/16 12:16 14:27 Pulse Ox 93 O2 Delivery Room Air Room Air Intake and Output 05/30/16 05/30/16 05/31/16 15:00 23:00 07:00 Intake Total 600 ml Output Total 350 ml Balance 250 ml DINORA MCDOWELL MD May 31, 2016 15:28
[2016-05-31] MEDS: HALOPERIDOL LACT 5 MG/ML VIAL. IVP PRN (16:07)
--- NOTE | 2016-05-31 18:47 | PDOC2 ---
PALLIATIVE CARE Palliative Care Note Palliative Care Consult requested by Dr. Berrios to address goals of care Diagnosis; ETOH abuse; ascities; hepatic encephalopathy, Korsikoff Dementia Patient asleep. Recently received sedative. Currently 1:1 nursing Attempted to reach Araseli --message to return call [phone]. Will arrange meeting as soon as returns call. IGOR HARRISON May 31, 2016 18:47
[2016-05-31] MEDS: MORPHINE SULFATE 4 MG/ML DISP.SYRIN. IV PRN (19:42)
[2016-05-31 19:43] VITALS: BP 113/86
[2016-05-31] MEDS: QUEtiapine 25 MG TABLET. PO SCH (21:10)
--- NOTE | 2016-05-31 23:51 | CONS ---
DATE OF CONSULTATION: 05/31/2016 REQUESTING PHYSICIAN: Dr. Berrios. REASON FOR CONSULTATION: C. diff. HISTORY OF PRESENT ILLNESS: This is a 56-year-old gentleman with history of alcoholism and history of cirrhosis of liver with ascites who presented to [facility] and was transferred. The patient had massive ascites, confusion and lactic acidosis there. He had ascitic fluid removal done, initially given broad antibiotic coverage and then C. diff was positive. The patient was transferred. Currently, the patient is receiving Flagyl. Consult has been requested. The patient continues to have liquid stool. Denies any nausea or vomiting. Denies any fever. Denies any chest pain or abdominal pain. PAST MEDICAL HISTORY: Positive for alcoholism with cirrhosis of liver, ascites, hypertension, COPD. SOCIAL HISTORY: Positive for smoking. Continues to drink alcohol. Lives with . ALLERGIES: Listed as allergic to penicillin and sulfa. He says it caused rash. REVIEW OF SYSTEMS: As per HPI, all other systems reviewed are negative. CURRENT MEDICATIONS: The patient is on Flagyl. PHYSICAL EXAMINATION: GENERAL: Alert, oriented gentleman, not in any distress. VITAL SIGNS: Stable. T-max is 100.0. HEENT: NAD. NECK: Supple, no JVP, no lymphadenopathy. LUNGS: Clear. HEART: S1, S2 regular. ABDOMEN: Quite distended with fluid present. Organomegaly cannot be appreciated. EXTREMITIES: No edema or cyanosis. SKIN: Unremarkable. NEUROLOGIC: The patient neurologically does move all the extremities, but memory is poor. LABORATORY DATA: White count is 7.2, hemoglobin 10.0, platelets are 131,000. BUN and creatinine are normal. AST is 75, ALT is 15. Ascitic fluid, WBC showed 38 and C. diff from [place] was positive. Abdominal fluid culture is negative. IMPRESSION: 1. Clostridium difficile associated diarrhea. 2. Cirrhosis of liver. 3. Ascites. 4. Alcoholism. 5. On presentation, sepsis with lactic acidosis. RECOMMENDATION: Would change Flagyl to p.o. vancomycin, supportive care, and the patient can be discharged to rehab. Overall, long-term prognosis is poor. Thank you very much, Dr. Berrios for giving me the opportunity to participate in this patient's care. ABHIJEET CUADRA MD DR: PAT/main JOB#: [id number] / [id number]
[2016-06-01 01:11] VITALS: BP 96/64
[2016-06-01] MEDS: MORPHINE SULFATE 4 MG/ML DISP.SYRIN. IV PRN ×4 (01:24→16:59)
[2016-06-01] MEDS: ALBUTEROL SULFATE 2.5 MG/3 ML NEBU. NEB PRN ×3 (04:31→19:23)
[2016-06-01] MEDS: LORAZEPAM 2 MG/ML VIAL IV PRN ×4 (04:33→17:00)
[2016-06-01] MEDS: HYDROCODONE/APAP 5/325MG TABLET. PO PRN ×2 (04:34→18:38)
[2016-06-01 07:00] VITALS: BP 105/73
[2016-06-01] MEDS: SPIRONOLACTONE 25 MG TABLET PO SCH (09:15)
[2016-06-01] MEDS: LACTULOSE 20 GM/30 ML SOLUTION. PO SCH ×2 (09:15→20:47)
[2016-06-01] MEDS: VANCOMYCIN 125 MG/2.5 ML ORAL SOLUTION. PO SCH ×4 (09:15→20:47)
[2016-06-01] MEDS: FAMOTIDINE 20 MG TABLET. PO SCH ×2 (09:15→20:47)
[2016-06-01] MEDS: POTASSIUM CHLORIDE 20 MEQ TABLET.ER. PO SCH (09:16)
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
--- NOTE | 2016-06-01 10:13 | PDOC ---
Infectious Disease Note Subjective Subjective feeling ok , had one liquid stool today ROS ROS no n/v/pain Vital Sign Vital Signs Vital Signs Date Time Temp Pulse Resp B/P Pulse Ox O2 Delivery O2 Flow Rate FiO2 06/01/16 09:18 Room Air 06/01/16 07:00 98.1 96 22 105/73 93 98.1 Physical Exam PHYSICAL EXAM GENERAL: NAD, Alert HEENT: PERRL, OC/OP NECK: Supple, no JVD, no LN LUNGS: Clear HEART: S1S2, no gallop, no murmur ABD: Soft, NT, no organomegaly, no rebound,, fluid ++ EXT: No edema, no cyanosis HOUSE SUPERVISOR: Alert, oriented x 3, no focal neurologic deficit SKIN: No rash IV: ok Objective Assessment C diff Lactic acidosis Cirrhosis of liver ETOH abuse Dementia Debility Plan Plan of Care po vanc for 10 days supportive care quit etoh d/c to [place] ABHIJEET Pineda MD Jun 01, 2016 10:13
--- NOTE | 2016-06-01 11:05 | PDOC ---
Subjective: Subjective: Pt offers no complaints. Objective: Objective: Reviewed palliative care note. 1:1 obs - per staff mentally better earlier today, confused after Ativan. Vital Signs: Vital Signs Date Time Temp Pulse Resp B/P Pulse Ox O2 Delivery O2 Flow Rate FiO2 06/01/16 09:48 Room Air 06/01/16 07:00 98.1 96 22 105/73 93 98.1 PE: GEN: NAD LUNGS: CTAB HEART: RRR ABD: S/ND/NT NEURO/PSYCH: mumbles A/P: Chronic liver disease, alcohol Ascites C.diff -ID involved, on vanc -- D/w ID. Await palliative care discussion. BASILIO RODRIGUEZ Jun 01, 2016 11:05
[2016-06-01 11:28] VITALS: BP 125/85
--- NOTE | 2016-06-01 11:28 | PDOC ---
PROGRESS NOTES Chief Complaint Chief Complaint metabolic encephalopathy, acute w/. EtOH cirrhosis w/ ascites C. diff colitis 1. EtOH W/D: on CIWA protocol, switched to IV rather than PO. banana bag. 1: 1 sitter 2. C. diff colitis: improving. on flagyl 3. Ascites: s/p tap at [facility]. 4. Pancytopenia: 2/2 EtOH abuse. plts recovering 5. Anemia: macrocytic. prob EtOH related. B12/folate WNL 6. Hyperbilirubinemia: prob EtOH related. sl improved 7. Protein malnutrition: severe. suspect diet related as well as poor hepatic fxn. high protein diet 8. Elevated DDimer: nondiagnostic CTA and low prob VQ scan at [facility]. 9. GI prophylaxis: PPI History of Present Illness History of Present Illness feels better, would like to dc, some lquid stool still confused to me, and date and time wants to talk again after I leave room most days still unsteady, Vitals Vitals Vital Signs Date Time Temp Pulse Resp B/P Pulse Ox O2 Delivery O2 Flow Rate FiO2 06/01/16 09:48 Room Air 06/01/16 07:00 98.1 96 22 105/73 93 98.1 Physical Exam Physical Exam calm and in bed, wanted to discuss discharge General: No acute distress, Other (sedated (ativan)) Heart: Regular rate Lungs: Clear Abdomen: Soft, No tenderness, Other (massive ascites) Extremities: No clubbing, No edema Skin: No rashes Assessment and Plan Assessmemt and Plan not rational thought, not competent today to make medical decisions, he does not seem agreeable to SNU discussed with social work, Plcement will be a problem Problems Medical Problems: (1) Ascites Status: Acute Problems: Comment Review of Relevant I have reviewed the following items mary (where applicable) has been applied. Medications Current Medications Haloperidol Lactate (Haldol) 5 mg PRN Q2HRS PRN IVP AGITATION Last administered on 05/31/16t 16:07; Start 05/24/16 at 14:30 Ondansetron HCl (Zofran) 4 mg PRN Q6HRS PRN IV NAUSEA/VOMITING; Start 05/24/16 at 14:30; Stop 05/26/16 at 16:06; Status DC Calcium Carbonate/ Glycine (Tums) 500 mg PRN Q3HRS PRN PO HEARTBURN / GAS; Start 05/24/16 at 14:30 Famotidine (Pepcid) 20 mg BID PO Last administered on 06/01/16 09:15; Start at 21:00 Enoxaparin Sodium (Lovenox 40mg Syringe) 80 mg BID SQ ; Start 05/24/16 at 21:00; Status UNV Sodium Chloride (Normal Saline Flush) 3 ml QSHIFT PRN IV AFTER MEDS AND BLOOD DRAWS Last administered on 05/31/16 21:44; Start 05/24/16 at 14:30 Acetaminophen/ Hydrocodone Bitart 1 tab 1 tab PRN Q4HRS PRN PO pain Last administered on 06/01/16 04:34; Start 05/24/16 at 14:30 Multivitamins/ Minerals/Thiamine HCl/Sodium Chloride (Infuvite Adult/ Iv Sodium Chloride 0.9% 1000ml Bag) 1,011 ml @ 99.981 mls/ hr DAILY IV Last administered on 05/28/16 09:23; Start 05/24/16 at 15:00; Stop 05/30/16 at 14:59; Status DC Lorazepam (Ativan) 4 mg PRN Q1HR PRN PO For CIWA 8-14 Last administered on 05/31 21:11; Start 05/24/16 at 14:45 Lorazepam (Ativan) 8 mg PRN Q1HR PRN PO For CIWA 15 or greater Last administered on 05/31/16 12:36; Start 05/24/16 at 14:45 Clonidine HCl 0.1 mg 0.1 mg PRN Q1HR PRN PO SBP > 180 or DBP > 100, MRX3; Start 05/24/16 at 14:45 Metronidazole (FLAGYL 500Mmg PREMIX) 100 ml @ 100 mls/hr Q8HRS IV Last administered on 05/28/16 05:39; Start 05/24/16 at 15:00; Stop 05/28/16 at 18:03; Status DC Diphenhydramine HCl (Benadryl) 25 mg PRN Q6HRS PRN IVP ITCHING Last administered on 05/28/16 02:47; Start 05/24/16 at 16:15 Albuterol/ Ipratropium (Duoneb) 3 ml QIDPRN PRN NEB WHEEZING Last administered on 05/27/16 22:53; Start 05/24/16 at 16:15; Stop 05/28/16 at 00:52; Status DC Ondansetron HCl (Zofran) 4 mg PRN Q6HRS PRN IV NAUSEA/VOMITING; Start 05/24/16 at 16:15 Spironolactone (Aldactone) 100 mg DAILY PO Last administered on 06/01/16 09:15 ; Start 05/25/16 at 09:00 Lorazepam (Ativan) 2 mg PRN Q1HR PRN IV For CIWA 8-14 Last administered on 06/01 04:33; Start 05/26/16 at 16:45 Lorazepam (Ativan) 4 mg PRN Q1HR PRN IV For CIWA 15 or greater Last administered on 06/01/16 09:17; Start 05/26/16 at 16:45 Acetaminophen (Tylenol) 650 mg PRN Q6HRS PRN PO MILD PAIN / TEMP Last administered on 05/28/16 01:12; Start 05/28/16 at 01:00 Albuterol Sulfate (Ventolin Neb Soln) 2.5 mg PRN QID PRN NEB WHEEZING Last administered on 06/01/16 04:31; Start 05/28/16 at 00:52 Potassium Chloride (Klor-Con) 20 meq DAILYWBKFT PO Last administered on 09:16; Start 05/29/16 at 08:00 Potassium Chloride 40 meq 40 meq 1X ONCE PO Last administered on 05/28/16 13: 29; Start 05/28/16 at 12:00; Stop 05/28/16 at 12:01; Status DC Magnesium Sulfate/ Dextrose (Magnesium Sulfate PREMIX 2GM) 50 ml @ 25 mls/hr 1X ONCE IV ; Start 05/28/16 at 12:15; Stop 05/28/16 at 14:14; Status DC Lactulose 20 gm 20 gm BID PO Last administered on 06/01/16 09:15; Start at 12:45 Magnesium Sulfate/ Dextrose (Magnesium Sulfate PREMIX 2GM) 50 ml @ 25 mls/hr 1X ONCE IV ; Start 05/28/16 at 13:00; Stop 05/28/16 at 14:59; Status UNV Potassium Chloride (Klor-Con) 20 meq 1X ONCE PO ; Start 05/28/16 at 19:00; Stop 05/28/16 at 19:01; Status UNV Metronidazole (Flagyl) 500 mg Q8HRS PO Last administered on 05/31/16 05:53; Start 05/28/16 at 22:00; Stop 05/31/16 at 10:02; Status DC Quetiapine Fumarate (SEROquel) 25 mg QHS PO Last administered on 05/31/16 21: 10; Start 05/28/16 at 21:00 Vancomycin HCl 125 mg [id number] PO Last administered on 06/01/16 09:15; Start at 10:30 Morphine Sulfate 4 mg PRN Q2HR PRN IV PAIN Last administered on 06/01/16 09:18 ; Start 05/31/16 at 15:45 Active Scripts Active Reported Lortab 7.5-325 mg Tablet (Hydrocodone/Acetaminophen) 1 Each Tablet 1 Tab PO PRN Q6HRS PRN Klor-Con M20 (Potassium Chloride) 20 Meq Tab.er.prt 20 Meq PO BID Lisinopril 40 Mg Tablet 40 Mg PO DAILY Vitals/I & O Vital Sign - Last 24 Hours 05/31/16 05/31/16 05/31/16 05/31/16 12:16 13:16 14:27 15:22 Temp 98.6 98.6 Pulse 109 Resp 20 B/P 111/79 Pulse Ox 96 93 96 O2 Delivery Room Air Room Air Room Air Room Air 05/31/16 05/31/16 05/31/16 05/31/16 18:59 19:42 19:43 21:36 Temp 98.3 98.3 Pulse 87 Resp 23 23 B/P 113/86 Pulse Ox 94 O2 Delivery Room Air Room Air Room Air Room Air 06/01/16 06/01/16 06/01/16 06/01/16 01:11 01:24 02:11 04:31 Temp 98.9 98.9 Pulse 93 Resp 22 23 20 B/P 96/64 Pulse Ox 92 O2 Delivery Room Air Room Air Room Air 06/01/16 06/01/16 06/01/16 06/01/16 04:34 06:02 07:00 09:18 Temp 98.1 98.1 Pulse 96 Resp 25 18 22 B/P 105/73 Pulse Ox 93 O2 Delivery Room Air Room Air Room Air Room Air 06/01/16 09:48 O2 Delivery Room Air Intake and Output 05/31/16 05/31/16 06/01/16 15:00 23:00 07:00 Intake Total 680 ml 540 ml Output Total 500 ml 600 ml Balance 180 ml -60 ml LAVONNE JOEL MD Jun 01, 2016 11:28
[2016-06-01 15:00] VITALS: BP 122/88
[2016-06-01] MEDS: LORAZEPAM 1 MG TABLET. PO PRN ×2 (18:38→23:07)
[2016-06-01 19:00] VITALS: BP 108/79
[2016-06-01] MEDS: QUEtiapine 25 MG TABLET. PO SCH (20:47)
[2016-06-01 23:00] VITALS: BP 112/77
[2016-06-02 03:00] VITALS: BP 115/70
[2016-06-02] MEDS: ALBUTEROL SULFATE 2.5 MG/3 ML NEBU. NEB PRN ×2 (04:33→17:07)
[2016-06-02] MEDS: HYDROCODONE/APAP 5/325MG TABLET. PO PRN (04:49)
[2016-06-02 07:00] VITALS: BP 113/80
[2016-06-02] MEDS: POTASSIUM CHLORIDE 20 MEQ TABLET.ER. PO SCH (08:00)
[2016-06-02] MEDS: LACTULOSE 20 GM/30 ML SOLUTION. PO SCH ×3 (08:19→21:00)
[2016-06-02] MEDS: SPIRONOLACTONE 25 MG TABLET PO SCH (08:19)
[2016-06-02] MEDS: VANCOMYCIN 125 MG/2.5 ML ORAL SOLUTION. PO SCH ×5 (08:19→21:00)
[2016-06-02] MEDS: FAMOTIDINE 20 MG TABLET. PO SCH ×2 (08:20→20:31)
[2016-06-02] MEDS ORDERED: LORA-434 PO (10:14)
[2016-06-02] MEDS ORDERED: HYDR-2679 PO (10:14)
[2016-06-02] MEDS ORDERED: Vancomycin Hcl PO (10:14)
--- NOTE | 2016-06-02 10:20 | PDOC ---
PROGRESS NOTES Chief Complaint Chief Complaint metabolic encephalopathy, acute on chronic, w/. EtOH cirrhosis w/ ascites C. diff colitis Alcoholic (Korsikoff) dementia 1. EtOH W/D: on CIWA protocol, switched to IV rather than PO. banana bag. 1: 1 sitter 2. C. diff colitis: improving. on flagyl 3. Ascites: s/p tap at [facility]. 4. Pancytopenia: 2/2 EtOH abuse. plts recovering 5. Anemia: macrocytic. prob EtOH related. B12/folate WNL 6. Hyperbilirubinemia: prob EtOH related. sl improved 7. Protein malnutrition: severe. suspect diet related as well as poor hepatic fxn. high protein diet 8. Elevated DDimer: nondiagnostic CTA and low prob VQ scan at [facility]. 9. GI prophylaxis: PPI History of Present Illness History of Present Illness feels better, would like to dc, some lquid stool still confused to me, and date and time wants to talk again after I leave room most days still unsteady, Vitals Vitals Vital Signs Date Time Temp Pulse Resp B/P Pulse Ox O2 Delivery O2 Flow Rate FiO2 06/02/16 07:00 98.3 98 22 113/80 96 Room Air 98.3 Physical Exam Physical Exam calm and in bed, wanted to discuss discharge General: No acute distress, Other (sedated (ativan)) Heart: Regular rate Lungs: Clear Abdomen: Soft, No tenderness, Other (massive ascites) Extremities: No clubbing, No edema Skin: No rashes Review of Systems Review of Systems no n.v/d Assessment and Plan Assessmemt and Plan DC home with home health, order placed, may stay if support not available discussed with at length yesterday Problems Medical Problems: (1) Ascites Status: Acute Problems: Comment Review of Relevant I have reviewed the following items mary (where applicable) has been applied. Medications Current Medications Haloperidol Lactate (Haldol) 5 mg PRN Q2HRS PRN IVP AGITATION Last administered on 05/31/16t 16:07; Start 05/24/16 at 14:30 Ondansetron HCl (Zofran) 4 mg PRN Q6HRS PRN IV NAUSEA/VOMITING; Start 05/24/16 at 14:30; Stop 05/26/16 at 16:06; Status DC Calcium Carbonate/ Glycine (Tums) 500 mg PRN Q3HRS PRN PO HEARTBURN / GAS; Start 05/24/16 at 14:30 Famotidine (Pepcid) 20 mg BID PO Last administered on 06/02/16 08:20; Start at 21:00 Enoxaparin Sodium (Lovenox 40mg Syringe) 80 mg BID SQ ; Start 05/24/16 at 21:00; Status UNV Sodium Chloride (Normal Saline Flush) 3 ml QSHIFT PRN IV AFTER MEDS AND BLOOD DRAWS Last administered on 05/31/16 21:44; Start 05/24/16 at 14:30 Acetaminophen/ Hydrocodone Bitart 1 tab 1 tab PRN Q4HRS PRN PO pain Last administered on 06/02/16 04:49; Start 05/24/16 at 14:30 Multivitamins/ Minerals/Thiamine HCl/Sodium Chloride (Infuvite Adult/ Iv Sodium Chloride 0.9% 1000ml Bag) 1,011 ml @ 99.981 mls/ hr DAILY IV Last administered on 05/28/16 09:23; Start 05/24/16 at 15:00; Stop 05/30/16 at 14:59; Status DC Lorazepam (Ativan) 4 mg PRN Q1HR PRN PO For CIWA 8-14 Last administered on 06/01 23:07; Start 05/24/16 at 14:45 Lorazepam (Ativan) 8 mg PRN Q1HR PRN PO For CIWA 15 or greater Last administered on 06/01/16 18:38; Start 05/24/16 at 14:45 Clonidine HCl 0.1 mg 0.1 mg PRN Q1HR PRN PO SBP > 180 or DBP > 100, MRX3; Start 05/24/16 at 14:45 Metronidazole (FLAGYL 500Mmg PREMIX) 100 ml @ 100 mls/hr Q8HRS IV Last administered on 05/28/16 05:39; Start 05/24/16 at 15:00; Stop 05/28/16 at 18:03; Status DC Diphenhydramine HCl (Benadryl) 25 mg PRN Q6HRS PRN IVP ITCHING Last administered on 05/28/16 02:47; Start 05/24/16 at 16:15 Albuterol/ Ipratropium (Duoneb) 3 ml QIDPRN PRN NEB WHEEZING Last administered on 05/27/16 22:53; Start 05/24/16 at 16:15; Stop 05/28/16 at 00:52; Status DC Ondansetron HCl (Zofran) 4 mg PRN Q6HRS PRN IV NAUSEA/VOMITING; Start 05/24/16 at 16:15 Spironolactone (Aldactone) 100 mg DAILY PO Last administered on 06/02/16 08:19 ; Start 05/25/16 at 09:00 Lorazepam (Ativan) 2 mg PRN Q1HR PRN IV For CIWA 8-14 Last administered on 06/01 04:33; Start 05/26/16 at 16:45 Lorazepam (Ativan) 4 mg PRN Q1HR PRN IV For CIWA 15 or greater Last administered on 06/01/16 17:00; Start 05/26/16 at 16:45 Acetaminophen (Tylenol) 650 mg PRN Q6HRS PRN PO MILD PAIN / TEMP Last administered on 05/28/16 01:12; Start 05/28/16 at 01:00 Albuterol Sulfate (Ventolin Neb Soln) 2.5 mg PRN QID PRN NEB WHEEZING Last administered on 06/02/16 04:33; Start 05/28/16 at 00:52 Potassium Chloride (Klor-Con) 20 meq DAILYWBKFT PO Last administered on 08:00; Start 05/29/16 at 08:00 Potassium Chloride 40 meq 40 meq 1X ONCE PO Last administered on 05/28/16 13: 29; Start 05/28/16 at 12:00; Stop 05/28/16 at 12:01; Status DC Magnesium Sulfate/ Dextrose (Magnesium Sulfate PREMIX 2GM) 50 ml @ 25 mls/hr 1X ONCE IV ; Start 05/28/16 at 12:15; Stop 05/28/16 at 14:14; Status DC Lactulose 20 gm 20 gm BID PO Last administered on 06/01/16 20:47; Start at 12:45 Magnesium Sulfate/ Dextrose (Magnesium Sulfate PREMIX 2GM) 50 ml @ 25 mls/hr 1X ONCE IV ; Start 05/28/16 at 13:00; Stop 05/28/16 at 14:59; Status UNV Potassium Chloride (Klor-Con) 20 meq 1X ONCE PO ; Start 05/28/16 at 19:00; Stop 05/28/16 at 19:01; Status UNV Metronidazole (Flagyl) 500 mg Q8HRS PO Last administered on 05/31/16 05:53; Start 05/28/16 at 22:00; Stop 05/31/16 at 10:02; Status DC Quetiapine Fumarate (SEROquel) 25 mg QHS PO Last administered on 06/01/16 20: 47; Start 05/28/16 at 21:00 Vancomycin HCl 125 mg [id number] PO Last administered on 06/02/16 08:19; Start at 10:30 Morphine Sulfate 4 mg PRN Q2HR PRN IV PAIN Last administered on 06/01/16 16:59 ; Start 05/31/16 at 15:45 Active Scripts Active Ativan (Lorazepam) 1 Mg Tablet 1 Mg PO DAILY [Vancomycin Hcl] 125 MG/2.5 ML Solution 125 Mg PO [id number] Lortab 7.5-325 mg Tablet (Hydrocodone/Acetaminophen) 1 Each Tablet 1 Tab PO PRN Q6HRS PRN Reported Klor-Con M20 (Potassium Chloride) 20 Meq Tab.er.prt 20 Meq PO BID Lisinopril 40 Mg Tablet 40 Mg PO DAILY Vitals/I & O Vital Sign - Last 24 Hours 06/01/16 06/01/16 06/01/16 06/01/16 11:28 12:27 14:03 15:00 Temp 99.4 99.2 99.4 99.2 Pulse 104 98 Resp 22 22 B/P 125/85 122/88 Pulse Ox 94 94 92 O2 Delivery Room Air Room Air Room Air Room Air 06/01/16 06/01/16 06/01/16 06/01/16 16:59 18:38 19:00 19:24 Temp 99.5 99.5 Pulse 105 Resp 20 B/P 108/79 Pulse Ox 95 O2 Delivery Room Air Room Air Room Air Room Air 06/01/16 06/01/16 06/02/16 06/02/16 19:35 23:00 03:00 04:49 Temp 99.3 98.8 99.3 98.8 Pulse 97 96 Resp 18 20 20 B/P 112/77 115/70 Pulse Ox 93 95 O2 Delivery Room Air Room Air Room Air Room Air 06/02/16 06/02/16 05:52 07:00 Temp 98.3 98.3 Pulse 98 Resp 20 22 B/P 113/80 Pulse Ox 96 O2 Delivery Room Air Room Air Intake and Output 06/01/16 06/01/16 06/02/16 15:00 23:00 07:00 Intake Total 1100 ml 1450 ml Output Total 700 ml Balance -700 ml 1100 ml 1450 ml LAVONNE JOEL MD Jun 02, 2016 10:20
[2016-06-02 11:00] VITALS: BP 118/74
[2016-06-02] MEDS: LORAZEPAM 1 MG TABLET. PO PRN ×4 (11:12→20:32)
[2016-06-02 15:00] VITALS: BP 100/69
[2016-06-02 19:00] VITALS: BP 112/82
[2016-06-02] MEDS: QUEtiapine 25 MG TABLET. PO SCH (20:30)
[2016-06-03] VITALS: BP 124/75
[2016-06-03 03:15] VITALS: BP 134/79
[2016-06-03] MEDS: ALBUTEROL SULFATE 2.5 MG/3 ML NEBU. NEB PRN (03:52)
[2016-06-03 07:00] VITALS: BP 125/88
[2016-06-03] MEDS: POTASSIUM CHLORIDE 20 MEQ TABLET.ER. PO SCH (08:00)
[2016-06-03] MEDS: VANCOMYCIN 125 MG/2.5 ML ORAL SOLUTION. PO SCH ×4 (09:00→21:19)
[2016-06-03] MEDS: SPIRONOLACTONE 25 MG TABLET PO SCH (09:00)
[2016-06-03] MEDS: FAMOTIDINE 20 MG TABLET. PO SCH ×2 (09:00→21:17)
[2016-06-03] MEDS: LACTULOSE 20 GM/30 ML SOLUTION. PO SCH ×2 (09:00→21:00)
[2016-06-03 11:00] VITALS: BP 110/79
--- NOTE | 2016-06-03 12:06 | PDOC ---
PROGRESS NOTES Chief Complaint Chief Complaint metabolic encephalopathy, acute on chronic, w/. EtOH cirrhosis w/ ascites C. diff colitis Alcoholic (Korsikoff) dementia 1. EtOH W/D: on CIWA protocol, switched to IV rather than PO. banana bag. 1: 1 sitter 2. C. diff colitis: improving. on flagyl 3. Ascites: s/p tap at [facility]. 4. Pancytopenia: 2/2 EtOH abuse. plts recovering 5. Anemia: macrocytic. prob EtOH related. B12/folate WNL 6. Hyperbilirubinemia: prob EtOH related. sl improved 7. Protein malnutrition: severe. suspect diet related as well as poor hepatic fxn. high protein diet 8. Elevated DDimer: nondiagnostic CTA and low prob VQ scan at [facility]. 9. GI prophylaxis: PPI History of Present Illness History of Present Illness feels better, would like to dc, ongoing freq. loose stools, on lactulose for mental status more clear and oriented noted weak and unsteady Vitals Vitals Vital Signs Date Time Temp Pulse Resp B/P Pulse Ox O2 Delivery O2 Flow Rate FiO2 06/03/16 07:00 97.9 96 22 125/88 97 Room Air 97.9 Physical Exam Physical Exam calm and in bed, wanted to discuss discharge General: No acute distress, Other (sedated (ativan)) Heart: Regular rate Lungs: Clear Abdomen: Soft, No tenderness, Other (massive ascites) Extremities: No clubbing, No edema Skin: No rashes Assessment and Plan Assessmemt and Plan OK to transfer home with home health mental status improving Problems Medical Problems: (1) Ascites Status: Acute Problems: Comment Review of Relevant I have reviewed the following items mary (where applicable) has been applied. Medications Current Medications Haloperidol Lactate (Haldol) 5 mg PRN Q2HRS PRN IVP AGITATION Last administered on 05/31/16t 16:07; Start 05/24/16 at 14:30 Ondansetron HCl (Zofran) 4 mg PRN Q6HRS PRN IV NAUSEA/VOMITING; Start 05/24/16 at 14:30; Stop 05/26/16 at 16:06; Status DC Calcium Carbonate/ Glycine (Tums) 500 mg PRN Q3HRS PRN PO HEARTBURN / GAS; Start 05/24/16 at 14:30 Famotidine (Pepcid) 20 mg BID PO Last administered on 06/03/16 09:00; Start at 21:00 Enoxaparin Sodium (Lovenox 40mg Syringe) 80 mg BID SQ ; Start 05/24/16 at 21:00; Status UNV Sodium Chloride (Normal Saline Flush) 3 ml QSHIFT PRN IV AFTER MEDS AND BLOOD DRAWS Last administered on 05/31/16 21:44; Start 05/24/16 at 14:30 Acetaminophen/ Hydrocodone Bitart 1 tab 1 tab PRN Q4HRS PRN PO pain Last administered on 06/02/16 04:49; Start 05/24/16 at 14:30 Multivitamins/ Minerals/Thiamine HCl/Sodium Chloride (Infuvite Adult/ Iv Sodium Chloride 0.9% 1000ml Bag) 1,011 ml @ 99.981 mls/ hr DAILY IV Last administered on 05/28/16 09:23; Start 05/24/16 at 15:00; Stop 05/30/16 at 14:59; Status DC Lorazepam (Ativan) 4 mg PRN Q1HR PRN PO For CIWA 8-14 Last administered on 06/02 20:32; Start 05/24/16 at 14:45 Lorazepam (Ativan) 8 mg PRN Q1HR PRN PO For CIWA 15 or greater Last administered on 06/02/16 18:13; Start 05/24/16 at 14:45 Clonidine HCl 0.1 mg 0.1 mg PRN Q1HR PRN PO SBP > 180 or DBP > 100, MRX3; Start 05/24/16 at 14:45 Metronidazole (FLAGYL 500Mmg PREMIX) 100 ml @ 100 mls/hr Q8HRS IV Last administered on 05/28/16 05:39; Start 05/24/16 at 15:00; Stop 05/28/16 at 18:03; Status DC Diphenhydramine HCl (Benadryl) 25 mg PRN Q6HRS PRN IVP ITCHING Last administered on 05/28/16 02:47; Start 05/24/16 at 16:15 Albuterol/ Ipratropium (Duoneb) 3 ml QIDPRN PRN NEB WHEEZING Last administered on 05/27/16 22:53; Start 05/24/16 at 16:15; Stop 05/28/16 at 00:52; Status DC Ondansetron HCl (Zofran) 4 mg PRN Q6HRS PRN IV NAUSEA/VOMITING; Start 05/24/16 at 16:15 Spironolactone (Aldactone) 100 mg DAILY PO Last administered on 06/03/16 09:00 ; Start 05/25/16 at 09:00 Lorazepam (Ativan) 2 mg PRN Q1HR PRN IV For CIWA 8-14 Last administered on 06/01 04:33; Start 05/26/16 at 16:45 Lorazepam (Ativan) 4 mg PRN Q1HR PRN IV For CIWA 15 or greater Last administered on 06/01/16 17:00; Start 05/26/16 at 16:45 Acetaminophen (Tylenol) 650 mg PRN Q6HRS PRN PO MILD PAIN / TEMP Last administered on 05/28/16 01:12; Start 05/28/16 at 01:00 Albuterol Sulfate (Ventolin Neb Soln) 2.5 mg PRN QID PRN NEB WHEEZING Last administered on 06/03/16 03:52; Start 05/28/16 at 00:52 Potassium Chloride (Klor-Con) 20 meq DAILYWBKFT PO Last administered on 08:00; Start 05/29/16 at 08:00 Potassium Chloride 40 meq 40 meq 1X ONCE PO Last administered on 05/28/16 13: 29; Start 05/28/16 at 12:00; Stop 05/28/16 at 12:01; Status DC Magnesium Sulfate/ Dextrose (Magnesium Sulfate PREMIX 2GM) 50 ml @ 25 mls/hr 1X ONCE IV ; Start 05/28/16 at 12:15; Stop 05/28/16 at 14:14; Status DC Lactulose 20 gm 20 gm BID PO Last administered on 06/03/16 09:00; Start at 12:45 Magnesium Sulfate/ Dextrose (Magnesium Sulfate PREMIX 2GM) 50 ml @ 25 mls/hr 1X ONCE IV ; Start 05/28/16 at 13:00; Stop 05/28/16 at 14:59; Status UNV Potassium Chloride (Klor-Con) 20 meq 1X ONCE PO ; Start 05/28/16 at 19:00; Stop 05/28/16 at 19:01; Status UNV Metronidazole (Flagyl) 500 mg Q8HRS PO Last administered on 05/31/16 05:53; Start 05/28/16 at 22:00; Stop 05/31/16 at 10:02; Status DC Quetiapine Fumarate (SEROquel) 25 mg QHS PO Last administered on 06/02/16 20: 30; Start 05/28/16 at 21:00 Vancomycin HCl 125 mg [id number] PO Last administered on 06/03/16 09:00; Start at 10:30 Morphine Sulfate 4 mg PRN Q2HR PRN IV PAIN Last administered on 06/01/16 16:59 ; Start 05/31/16 at 15:45 Haloperidol Lactate (Haldol) 5 mg PRN Q8HRS PRN IM ANXIETY / AGITATION; Start 06/02/16 at 18:30 Active Scripts Active Ativan (Lorazepam) 1 Mg Tablet 1 Mg PO DAILY [Vancomycin Hcl] 125 MG/2.5 ML Solution 125 Mg PO [id number] Lortab 7.5-325 mg Tablet (Hydrocodone/Acetaminophen) 1 Each Tablet 1 Tab PO PRN Q6HRS PRN Reported Klor-Con M20 (Potassium Chloride) 20 Meq Tab.er.prt 20 Meq PO BID Lisinopril 40 Mg Tablet 40 Mg PO DAILY Vitals/I & O Vital Sign - Last 24 Hours 06/02/16 06/02/16 06/02/16 06/02/16 15:00 17:08 19:00 20:00 Temp 97.2 98.1 97.2 98.1 Pulse 94 116 Resp B/P 100/69 112/82 Pulse Ox 95 97 96 O2 Delivery Room Air Room Air Room Air Room Air 06/03/16 06/03/16 06/03/16 06/03/16 00:00 03:15 03:58 07:00 Temp 98.2 97.8 97.9 98.2 97.8 97.9 Pulse 102 95 96 Resp 22 B/P 124/75 134/79 125/88 Pulse Ox 95 95 99 97 O2 Delivery Room Air Room Air Room Air Room Air Intake and Output 06/02/16 06/02/16 06/03/16 15:00 23:00 07:00 Intake Total 360 ml 200 ml Output Total 1200 ml 500 ml 600 ml Balance -840 ml -300 ml -600 ml LAVONNE JOEL MD Jun 03, 2016 12:06
[2016-06-03 15:00] VITALS: BP 117/82
[2016-06-03] MEDS: MULTIVITAMIN with MINERAL TABLET. PO SCH (15:00)
[2016-06-03] MEDS: ASCORBIC ACID 500 MG TABLET PO SCH (15:00)
[2016-06-03] MEDS: HALOPERIDOL LACT 5 MG/ML VIAL. IM PRN (15:45)
[2016-06-03] MEDS: QUEtiapine 25 MG TABLET. PO SCH (21:17)
[2016-06-03] MEDS: LORAZEPAM 1 MG TABLET. PO PRN (21:18)
[2016-06-03 21:42] VITALS: BP 121/92
[2016-06-04] MEDS: LORAZEPAM 1 MG TABLET. PO PRN ×3 (04:26→11:12)
[2016-06-04] MEDS: HYDROCODONE/APAP 5/325MG TABLET. PO PRN ×4 (04:26→22:42)
[2016-06-04 07:00] VITALS: BP 103/79
--- NOTE | 2016-06-04 08:29 | PDOC ---
PROGRESS NOTES Assessment Problems Medical Problems: (1) Ascites Status: Acute Hepatic encephalopathy, better Alcoholic (Korsikoff) dementia Plan Agree with discharge plans Subjective has some back pain Objective Vital Signs Date Time Temp Pulse Resp B/P Pulse Ox O2 Delivery O2 Flow Rate FiO2 06/04/16 04:26 Room Air 06/03/16 21:42 98.5 90 20 121/92 98 98.5 Intake and Output 06/04/16 07:00 Intake Total 840 ml Output Total 206 ml Balance 634 ml Intake Oral 840 ml Output Urine Total 206 ml # Voids 5 # Bowel Movements 9 PHYSICAL EXAM Alert. Knows name, "Benton," does not know the date. No confabulation. PERRL. EOMI. CN: no focal findings. Muscle tone: normal. Muscle strength: 5/5 DTR: 1+ Plantar reflex: Flexor Gait: not examined in bed. Sensory exam: no abnormal findings. No cerebellar signs elicited. No asterixis noted Review of Relevant I have reviewed the following items mary (where applicable) has been applied. Medications Current Medications Haloperidol Lactate (Haldol) 5 mg PRN Q2HRS PRN IVP AGITATION Last administered on 05/31/16 16:07; Start 05/24/16 at 14:30 Ondansetron HCl (Zofran) 4 mg PRN Q6HRS PRN IV NAUSEA/VOMITING; Start 05/24/16 at 14:30; Stop 05/26/16 at 16:06; Status DC Calcium Carbonate/ Glycine (Tums) 500 mg PRN Q3HRS PRN PO HEARTBURN / GAS; Start 05/24/16 at 14:30 Famotidine (Pepcid) 20 mg BID PO Last administered on 06/03/16 21:17; Start at 21:00 Enoxaparin Sodium (Lovenox 40mg Syringe) 80 mg BID SQ ; Start 05/24/16 at 21:00; Status UNV Sodium Chloride (Normal Saline Flush) 3 ml QSHIFT PRN IV AFTER MEDS AND BLOOD DRAWS Last administered on 05/31/16 21:44; Start 05/24/16 at 14:30 Acetaminophen/ Hydrocodone Bitart 1 tab 1 tab PRN Q4HRS PRN PO pain Last administered on 06/04/16 04:26; Start 05/24/16 at 14:30 Multivitamins/ Minerals/Thiamine HCl/Sodium Chloride (Infuvite Adult/ Iv Sodium Chloride 0.9% 1000ml Bag) 1,011 ml @ 99.981 mls/ hr DAILY IV Last administered on 05/28/16 09:23; Start 05/24/16 at 15:00; Stop 05/30/16 at 14:59; Status DC Lorazepam (Ativan) 4 mg PRN Q1HR PRN PO For CIWA 8-14 Last administered on 06/04 04:26; Start 05/24/16 at 14:45 Lorazepam (Ativan) 8 mg PRN Q1HR PRN PO For CIWA 15 or greater Last administered on 06/02/16 18:13; Start 05/24/16 at 14:45 Clonidine HCl 0.1 mg 0.1 mg PRN Q1HR PRN PO SBP > 180 or DBP > 100, MRX3; Start 05/24/16 at 14:45 Metronidazole (FLAGYL 500Mmg PREMIX) 100 ml @ 100 mls/hr Q8HRS IV Last administered on 05/28/16 05:39; Start 05/24/16 at 15:00; Stop 05/28/16 at 18:03; Status DC Diphenhydramine HCl (Benadryl) 25 mg PRN Q6HRS PRN IVP ITCHING Last administered on 05/28/16 02:47; Start 05/24/16 at 16:15 Albuterol/ Ipratropium (Duoneb) 3 ml QIDPRN PRN NEB WHEEZING Last administered on 05/27/16 22:53; Start 05/24/16 at 16:15; Stop 05/28/16 at 00:52; Status DC Ondansetron HCl (Zofran) 4 mg PRN Q6HRS PRN IV NAUSEA/VOMITING; Start 05/24/16 at 16:15 Spironolactone (Aldactone) 100 mg DAILY PO Last administered on 06/03/16 09:00 ; Start 05/25/16 at 09:00 Lorazepam (Ativan) 2 mg PRN Q1HR PRN IV For CIWA 8-14 Last administered on 06/01 04:33; Start 05/26/16 at 16:45 Lorazepam (Ativan) 4 mg PRN Q1HR PRN IV For CIWA 15 or greater Last administered on 06/01/16 17:00; Start 05/26/16 at 16:45 Acetaminophen (Tylenol) 650 mg PRN Q6HRS PRN PO MILD PAIN / TEMP Last administered on 05/28/16 01:12; Start 05/28/16 at 01:00 Albuterol Sulfate (Ventolin Neb Soln) 2.5 mg PRN QID PRN NEB WHEEZING Last administered on 06/03/16 03:52; Start 05/28/16 at 00:52 Potassium Chloride (Klor-Con) 20 meq DAILYWBKFT PO Last administered on 08:00; Start 05/29/16 at 08:00 Potassium Chloride 40 meq 40 meq 1X ONCE PO Last administered on 05/28/16 13: 29; Start 05/28/16 at 12:00; Stop 05/28/16 at 12:01; Status DC Magnesium Sulfate/ Dextrose (Magnesium Sulfate PREMIX 2GM) 50 ml @ 25 mls/hr 1X ONCE IV ; Start 05/28/16 at 12:15; Stop 05/28/16 at 14:14; Status DC Lactulose 20 gm 20 gm BID PO Last administered on 06/03/16 09:00; Start at 12:45 Magnesium Sulfate/ Dextrose (Magnesium Sulfate PREMIX 2GM) 50 ml @ 25 mls/hr 1X ONCE IV ; Start 05/28/16 at 13:00; Stop 05/28/16 at 14:59; Status UNV Potassium Chloride (Klor-Con) 20 meq 1X ONCE PO ; Start 05/28/16 at 19:00; Stop 05/28/16 at 19:01; Status UNV Metronidazole (Flagyl) 500 mg Q8HRS PO Last administered on 05/31/16 05:53; Start 05/28/16 at 22:00; Stop 05/31/16 at 10:02; Status DC Quetiapine Fumarate (SEROquel) 25 mg QHS PO Last administered on 06/03/16 21: 17; Start 05/28/16 at 21:00 Vancomycin HCl 125 mg [id number] PO Last administered on 06/03/16 21:19; Start at 10:30 Morphine Sulfate 4 mg PRN Q2HR PRN IV PAIN Last administered on 06/01/16 16:59 ; Start 05/31/16 at 15:45 Haloperidol Lactate (Haldol) 5 mg PRN Q8HRS PRN IM ANXIETY / AGITATION Last administered on 06/03/16 15:45; Start 06/02/16 at 18:30 Ascorbic Acid (Vitamin C) 500 mg DAILY PO ; Start 06/03/16 at 15:00 Multivitamins/ Calcium (Thera M Plus) 1 tab DAILY PO ; Start 06/03/16 at 15:00 Active Scripts Active Ativan (Lorazepam) 1 Mg Tablet 1 Mg PO DAILY [Vancomycin Hcl] 125 MG/2.5 ML Solution 125 Mg PO [id number] Lortab 7.5-325 mg Tablet (Hydrocodone/Acetaminophen) 1 Each Tablet 1 Tab PO PRN Q6HRS PRN Reported Klor-Con M20 (Potassium Chloride) 20 Meq Tab.er.prt 20 Meq PO BID Lisinopril 40 Mg Tablet 40 Mg PO DAILY Vitals/I & O Vital Sign - Last 24 Hours 06/03/16 06/03/16 06/03/16 06/03/16 11:00 15:00 19:58 20:00 Temp 98.3 98.9 98.3 98.9 Pulse 93 96 Resp 20 20 B/P 110/79 117/82 Pulse Ox 96 98 O2 Delivery Room Air Room Air Room Air Room Air 06/03/16 06/03/16 06/04/16 06/04/16 21:42 23:09 03:15 04:26 Temp 98.5 98.5 Pulse 90 Resp 20 B/P 121/92 Pulse Ox 98 O2 Delivery Room Air Room Air Room Air Room Air Intake and Output 06/03/16 06/03/16 06/04/16 15:00 23:00 07:00 Intake Total 360 ml 480 ml Output Total 206 ml Balance 360 ml 274 ml DINORA MCDOWELL MD Jun 04, 2016 08:29
[2016-06-04] MEDS: LACTULOSE 20 GM/30 ML SOLUTION. PO SCH (09:06)
[2016-06-04] MEDS: SPIRONOLACTONE 25 MG TABLET PO SCH (09:06)
[2016-06-04] MEDS: VANCOMYCIN 125 MG/2.5 ML ORAL SOLUTION. PO SCH ×4 (09:06→22:43)
[2016-06-04] MEDS: POTASSIUM CHLORIDE 20 MEQ TABLET.ER. PO SCH (09:06)
[2016-06-04] MEDS: ASCORBIC ACID 500 MG TABLET PO SCH (09:06)
[2016-06-04] MEDS: FAMOTIDINE 20 MG TABLET. PO SCH ×2 (09:07→22:43)
[2016-06-04] MEDS: MULTIVITAMIN with MINERAL TABLET. PO SCH (09:07)
--- NOTE | 2016-06-04 10:18 | PDOC ---
Subjective: Subjective: Asks when he can go home. Knows year, not month or hospital name. Objective: Objective: Reviewed social work and palliative care notes. Vital Signs: Vital Signs Date Time Temp Pulse Resp B/P Pulse Ox O2 Delivery O2 Flow Rate FiO2 06/04/16 07:00 97.0 113 20 103/79 98 Room Air 97.0 PE: GEN: NAD, up to chair LUNGS: CTAB HEART: RRR ABD: S/NT, some distention NEURO/PSYCH: confused but seems improved compared to last week A/P: Alcoholic liver disease w/ dementia -on Aldactone, lactulose C.diff -on oral vanc -- ?DC with home health BASILIO RODRIGUEZ Jun 04, 2016 10:18
[2016-06-04 11:05] VITALS: BP 116/88
[2016-06-04 15:00] VITALS: BP 111/86
[2016-06-04] MEDS: HALOPERIDOL LACT 5 MG/ML VIAL. IM PRN (15:17)
--- NOTE | 2016-06-04 15:37 | PDOC ---
PROGRESS NOTES Chief Complaint Chief Complaint Ascites C.diff colitis EtOH W/D ASSESSMENT AND PLAN: 1. EtOH W/D: completed CIWA regimen. stop ativan (11d post start). 1:1 sitter stopped 06/03 2. C. diff colitis: improving. on PO vanco (Abx since 05/24/16). start macrobiotics 3. Ascites: s/p tap at [facility] 2 EEKS AGO 4. Pancytopenia: 2/2 EtOH abuse. at baseline 5. Anemia: macrocytic. prob EtOH related. B12/folate WNL 6. Hyperbilirubinemia: prob EtOH related. awaiting rpt 7. 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 on lactulose. decrease dose to prevent excessive diarrhea 7. Protein malnutrition: severe. suspect diet related as well as poor hepatic fxn. high protein diet 8. Elevated DDimer: nondiagnostic CTA and low prob VQ scan at [facility]. 9. GI prophylaxis: PPI 10: Dispo: gait instability, confusion make d/c to home difficult. poss GeriPsych. d/w CM Vitals Vitals Vital Signs Date Time Temp Pulse Resp B/P Pulse Ox O2 Delivery O2 Flow Rate FiO2 06/04/16 12:12 18 Room Air 06/04/16 11:05 98.0 109 116/88 97 98.0 Physical Exam General: Alert, No acute distress Heart: Regular rate Lungs: Clear Abdomen: Soft, No tenderness, Other (+ ascites) Extremities: No clubbing, No edema Skin: No rashes Review of Systems Review of Systems wants to go home. denies gait instability or fall (today). poor insight and decision making. Comment Review of Relevant I have reviewed the following items mary (where applicable) has been applied. Medications Current Medications Haloperidol Lactate (Haldol) 5 mg PRN Q2HRS PRN IVP AGITATION Last administered on 05/31/16t 16:07; Start 05/24/16 at 14:30 Ondansetron HCl (Zofran) 4 mg PRN Q6HRS PRN IV NAUSEA/VOMITING; Start 05/24/16 at 14:30; Stop 05/26/16 at 16:06; Status DC Calcium Carbonate/ Glycine (Tums) 500 mg PRN Q3HRS PRN PO HEARTBURN / GAS; Start 05/24/16 at 14:30 Famotidine (Pepcid) 20 mg BID PO Last administered on 06/04/16 09:07; Start at 21:00 Enoxaparin Sodium (Lovenox 40mg Syringe) 80 mg BID SQ ; Start 05/24/16 at 21:00; Status UNV Sodium Chloride (Normal Saline Flush) 3 ml QSHIFT PRN IV AFTER MEDS AND BLOOD DRAWS Last administered on 05/31/16 21:44; Start 05/24/16 at 14:30 Acetaminophen/ Hydrocodone Bitart 1 tab 1 tab PRN Q4HRS PRN PO pain Last administered on 06/04/16 11:12; Start 05/24/16 at 14:30 Multivitamins/ Minerals/Thiamine HCl/Sodium Chloride (Infuvite Adult/ Iv Sodium Chloride 0.9% 1000ml Bag) 1,011 ml @ 99.981 mls/ hr DAILY IV Last administered on 05/28/16 09:23; Start 05/24/16 at 15:00; Stop 05/30/16 at 14:59; Status DC Lorazepam (Ativan) 4 mg PRN Q1HR PRN PO For CIWA 8-14 Last administered on 06/04 11:12; Start 05/24/16 at 14:45 Lorazepam (Ativan) 8 mg PRN Q1HR PRN PO For CIWA 15 or greater Last administered on 06/02/16 18:13; Start 05/24/16 at 14:45 Clonidine HCl 0.1 mg 0.1 mg PRN Q1HR PRN PO SBP > 180 or DBP > 100, MRX3; Start 05/24/16 at 14:45 Metronidazole (FLAGYL 500Mmg PREMIX) 100 ml @ 100 mls/hr Q8HRS IV Last administered on 05/28/16 05:39; Start 05/24/16 at 15:00; Stop 05/28/16 at 18:03; Status DC Diphenhydramine HCl (Benadryl) 25 mg PRN Q6HRS PRN IVP ITCHING Last administered on 05/28/16 02:47; Start 05/24/16 at 16:15 Albuterol/ Ipratropium (Duoneb) 3 ml QIDPRN PRN NEB WHEEZING Last administered on 05/27/16 22:53; Start 05/24/16 at 16:15; Stop 05/28/16 at 00:52; Status DC Ondansetron HCl (Zofran) 4 mg PRN Q6HRS PRN IV NAUSEA/VOMITING; Start 05/24/16 at 16:15 Spironolactone (Aldactone) 100 mg DAILY PO Last administered on 06/04/16 09:06 ; Start 05/25/16 at 09:00 Lorazepam (Ativan) 2 mg PRN Q1HR PRN IV For CIWA 8-14 Last administered on 06/01 04:33; Start 05/26/16 at 16:45 Lorazepam (Ativan) 4 mg PRN Q1HR PRN IV For CIWA 15 or greater Last administered on 06/01/16 17:00; Start 05/26/16 at 16:45 Acetaminophen (Tylenol) 650 mg PRN Q6HRS PRN PO MILD PAIN / TEMP Last administered on 05/28/16 01:12; Start 05/28/16 at 01:00 Albuterol Sulfate (Ventolin Neb Soln) 2.5 mg PRN QID PRN NEB WHEEZING Last administered on 06/03/16 03:52; Start 05/28/16 at 00:52 Potassium Chloride (Klor-Con) 20 meq DAILYWBKFT PO Last administered on 09:06; Start 05/29/16 at 08:00 Potassium Chloride 40 meq 40 meq 1X ONCE PO Last administered on 05/28/16 13: 29; Start 05/28/16 at 12:00; Stop 05/28/16 at 12:01; Status DC Magnesium Sulfate/ Dextrose (Magnesium Sulfate PREMIX 2GM) 50 ml @ 25 mls/hr 1X ONCE IV ; Start 05/28/16 at 12:15; Stop 05/28/16 at 14:14; Status DC Lactulose 20 gm 20 gm BID PO Last administered on 06/04/16 09:06; Start at 12:45 Magnesium Sulfate/ Dextrose (Magnesium Sulfate PREMIX 2GM) 50 ml @ 25 mls/hr 1X ONCE IV ; Start 05/28/16 at 13:00; Stop 05/28/16 at 14:59; Status UNV Potassium Chloride (Klor-Con) 20 meq 1X ONCE PO ; Start 05/28/16 at 19:00; Stop 05/28/16 at 19:01; Status UNV Metronidazole (Flagyl) 500 mg Q8HRS PO Last administered on 05/31/16 05:53; Start 05/28/16 at 22:00; Stop 05/31/16 at 10:02; Status DC Quetiapine Fumarate (SEROquel) 25 mg QHS PO Last administered on 06/03/16 21: 17; Start 05/28/16 at 21:00 Vancomycin HCl 125 mg [id number] PO Last administered on 06/04/16 13:34; Start at 10:30 Morphine Sulfate 4 mg PRN Q2HR PRN IV PAIN Last administered on 06/01/16 16:59 ; Start 05/31/16 at 15:45 Haloperidol Lactate (Haldol) 5 mg PRN Q8HRS PRN IM ANXIETY / AGITATION Last administered on 06/04/16 15:17; Start 06/02/16 at 18:30 Ascorbic Acid (Vitamin C) 500 mg DAILY PO Last administered on 06/04/16 09:06 ; Start 06/03/16 at 15:00 Multivitamins/ Calcium (Thera M Plus) 1 tab DAILY PO Last administered on 09:07; Start 06/03/16 at 15:00 Active Scripts Active Ativan (Lorazepam) 1 Mg Tablet 1 Mg PO DAILY [Vancomycin Hcl] 125 MG/2.5 ML Solution 125 Mg PO [id number] Lortab 7.5-325 mg Tablet (Hydrocodone/Acetaminophen) 1 Each Tablet 1 Tab PO PRN Q6HRS PRN Reported Klor-Con M20 (Potassium Chloride) 20 Meq Tab.er.prt 20 Meq PO BID Lisinopril 40 Mg Tablet 40 Mg PO DAILY Vitals/I & O Vital Sign - Last 24 Hours 06/03/16 06/03/16 06/03/16 06/03/16 19:58 20:00 21:42 23:09 Temp 98.5 98.5 Pulse 90 Resp 20 B/P 121/92 Pulse Ox 98 O2 Delivery Room Air Room Air Room Air Room Air 06/04/16 06/04/16 06/04/16 06/04/16 03:15 04:26 07:00 08:00 Temp 97.0 97.0 Pulse 113 Resp 20 B/P 103/79 Pulse Ox 98 O2 Delivery Room Air Room Air Room Air Room Air 06/04/16 06/04/16 06/04/16 11:05 11:12 12:12 Temp 98.0 98.0 Pulse 109 Resp 20 18 18 B/P 116/88 Pulse Ox 97 O2 Delivery Room Air Room Air Room Air Intake and Output 06/03/16 06/03/16 06/04/16 15:00 23:00 07:00 Intake Total 360 ml 480 ml Output Total 206 ml Balance 360 ml 274 ml MARIZA SANTIZO MD Jun 04, 2016 15:37
[2016-06-04] MEDS: LACTOBACILLUS ACIDOPH & BULGAR 1 TABLET. PO SCH (17:50)
[2016-06-04 19:30] VITALS: BP 110/80
[2016-06-04] MEDS: QUEtiapine 25 MG TABLET. PO SCH (22:43)
[2016-06-04 23:00] VITALS: BP 114/76
[2016-06-05] MEDS: HYDROCODONE/APAP 5/325MG TABLET. PO PRN ×3 (02:48→11:41)
[2016-06-05 03:00] VITALS: BP 91/61
[2016-06-05 04:28] LABS: BASO # 0.1 x10^3/uL (0.0-0.2); BASO % 1 % (0-3); EOS % 4 % (0-3); HEMATOCRIT 28.9 % (39.0-53.0); HEMOGLOBIN 9.4 g/dL (13.0-17.5); LYMPH # 2.8 x10^3/uL (1.0-4.8); LYMPH % 49 % (24-48); MEAN CORPUSCULAR HEMOGLOBIN 36 pg (25-35); MEAN CORPUSCULAR HGB CONC 33 g/dL (31-37); MEAN CORPUSCULAR VOLUME 110 fL (79-100); MONO % 11 % (0-9); NEUT % 35 % (31-73); PLATELET COUNT 168 x10^3/uL (140-400); RED BLOOD COUNT 2.62 x10^6/uL (4.30-5.70); WHITE BLOOD COUNT 5.7 x10^3/uL (4.0-11.0)
[2016-06-05 05:11] LABS: ALBUMIN 1.7 g/dL (3.4-5.0); ALBUMIN/GLOBULIN RATIO 0.4 (1.0-1.7); CALCIUM 7.5 mg/dL (8.5-10.1); CREATININE 0.8 mg/dL (0.7-1.3); GFR 120.1; POTASSIUM 4.3 mmol/L (3.5-5.1); TOTAL BILIRUBIN 0.9 mg/dL (0.2-1.0); TOTAL PROTEIN 5.8 g/dL (6.4-8.2)
[2016-06-05 07:00] VITALS: BP 107/66
[2016-06-05] MEDS: POTASSIUM CHLORIDE 20 MEQ TABLET.ER. PO SCH (08:00)
[2016-06-05] MEDS: LACTOBACILLUS ACIDOPH & BULGAR 1 TABLET. PO SCH ×2 (08:00→12:00)
--- NOTE | 2016-06-05 08:34 | PDOC ---
PROGRESS NOTES Chief Complaint Chief Complaint Ascites C.diff colitis EtOH W/D ASSESSMENT AND PLAN: 1. EtOH W/D: completed CIWA regimen. stopped ativan 06/04 . 1:1 sitter stopped 06/03 2. C. diff colitis: improving. on PO vanco (Abx since 05/24/16). start macrobiotics 3. Ascites: s/p tap at [facility] 2 weeks ago 4. Pancytopenia: 2/2 EtOH abuse. at baseline 5. Anemia: macrocytic. prob EtOH related. B12/folate WNL 6. Hyperbilirubinemia: prob EtOH related. now resolved 7. 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 on lactulose. decrease dose to prevent excessive diarrhea 7. Protein malnutrition: severe. suspect diet related as well as poor hepatic fxn. high protein diet 8. Elevated DDimer: nondiagnostic CTA and low prob VQ scan at [facility]. 9. GI prophylaxis: PPI 10: Dispo: gait instability, confusion make d/c to home difficult. poss GeriPsych. d/w CM Vitals Vitals Vital Signs Date Time Temp Pulse Resp B/P Pulse Ox O2 Delivery O2 Flow Rate FiO2 06/05/16 07:14 20 Room Air 06/05/16 07:00 98.2 97 107/66 96 98.2 Physical Exam General: Alert, No acute distress Heart: Regular rate Lungs: Clear Abdomen: Soft, No tenderness, Other (+ ascites) Extremities: No clubbing, No edema Skin: No rashes Labs LABS Laboratory Tests Test 06/05/16 03:20 White Blood Count 5.7x10^3/uL (4.0-11.0) Red Blood Count 2.62x10^6/uL (4.30-5.70) Hemoglobin 9.4g/dL (13.0-17.5) Hematocrit 28.9% (39.0-53.0) Mean Corpuscular Volume 110fL (79-100) Mean Corpuscular Hemoglobin 36pg (25-35) Mean Corpuscular Hemoglobin Concent 33g/dL (31-37) Red Cell Distribution Width 14.0% (11.5-14.5) Platelet Count 168x10^3/uL (140-400) Neutrophils (%) (Auto) 35% (31-73) Lymphocytes (%) (Auto) 49% (24-48) Monocytes (%) (Auto) 11% (0-9) Eosinophils (%) (Auto) 4% (0-3) Basophils (%) (Auto) 1% (0-3) Neutrophils # (Auto) 2.0x10^3uL (1.8-7.7) Lymphocytes # (Auto) 2.8x10^3/uL (1.0-4.8) Monocytes # (Auto) 0.6x10^3/uL (0.0-1.1) Eosinophils # (Auto) 0.2x10^3/uL (0.0-0.7) Basophils # (Auto) 0.1x10^3/uL (0.0-0.2) Sodium Level 140mmol/L (136-145) Potassium Level 4.3mmol/L (3.5-5.1) Chloride Level 108mmol/L (98-107) Carbon Dioxide Level 22mmol/L (21-32) Anion Gap 10 (6-14) Blood Urea Nitrogen 2mg/dL (8-26) Creatinine 0.8mg/dL (0.7-1.3) Estimated GFR (Cockcroft-Gault) 120.1 BUN/Creatinine Ratio 3 (6-20) Glucose Level 71mg/dL (70-99) Calcium Level 7.5mg/dL (8.5-10.1) Magnesium Level 1.1mg/dL (1.8-2.4) Total Bilirubin 0.9mg/dL (0.2-1.0) Aspartate Amino Transf (AST/SGOT) 60U/L (15-37) Alanine Aminotransferase (ALT/SGPT) 17U/L (16-63) Alkaline Phosphatase 103U/L (46-116) Total Protein 5.8g/dL (6.4-8.2) Albumin 1.7g/dL (3.4-5.0) Albumin/Globulin Ratio 0.4 (1.0-1.7) Review of Systems Review of Systems eager to go home. adamantly denies having fallen or having gait difficulties Comment Review of Relevant I have reviewed the following items mary (where applicable) has been applied. Labs Laboratory Tests Test 06/05/16 03:20 White Blood Count 5.7x10^3/uL (4.0-11.0) Red Blood Count 2.62x10^6/uL (4.30-5.70) Hemoglobin 9.4g/dL (13.0-17.5) Hematocrit 28.9% (39.0-53.0) Mean Corpuscular Volume 110fL (79-100) Mean Corpuscular Hemoglobin 36pg (25-35) Mean Corpuscular Hemoglobin Concent 33g/dL (31-37) Red Cell Distribution Width 14.0% (11.5-14.5) Platelet Count 168x10^3/uL (140-400) Neutrophils (%) (Auto) 35% (31-73) Lymphocytes (%) (Auto) 49% (24-48) Monocytes (%) (Auto) 11% (0-9) Eosinophils (%) (Auto) 4% (0-3) Basophils (%) (Auto) 1% (0-3) Neutrophils # (Auto) 2.0x10^3uL (1.8-7.7) Lymphocytes # (Auto) 2.8x10^3/uL (1.0-4.8) Monocytes # (Auto) 0.6x10^3/uL (0.0-1.1) Eosinophils # (Auto) 0.2x10^3/uL (0.0-0.7) Basophils # (Auto) 0.1x10^3/uL (0.0-0.2) Sodium Level 140mmol/L (136-145) Potassium Level 4.3mmol/L (3.5-5.1) Chloride Level 108mmol/L (98-107) Carbon Dioxide Level 22mmol/L (21-32) Anion Gap 10 (6-14) Blood Urea Nitrogen 2mg/dL (8-26) Creatinine 0.8mg/dL (0.7-1.3) Estimated GFR (Cockcroft-Gault) 120.1 BUN/Creatinine Ratio 3 (6-20) Glucose Level 71mg/dL (70-99) Calcium Level 7.5mg/dL (8.5-10.1) Magnesium Level 1.1mg/dL (1.8-2.4) Total Bilirubin 0.9mg/dL (0.2-1.0) Aspartate Amino Transf (AST/SGOT) 60U/L (15-37) Alanine Aminotransferase (ALT/SGPT) 17U/L (16-63) Alkaline Phosphatase 103U/L (46-116) Total Protein 5.8g/dL (6.4-8.2) Albumin 1.7g/dL (3.4-5.0) Albumin/Globulin Ratio 0.4 (1.0-1.7) Laboratory Tests Test 06/05/16 03:20 White Blood Count 5.7x10^3/uL (4.0-11.0) Red Blood Count 2.62x10^6/uL (4.30-5.70) Hemoglobin 9.4g/dL (13.0-17.5) Hematocrit 28.9% (39.0-53.0) Mean Corpuscular Volume 110fL (79-100) Mean Corpuscular Hemoglobin 36pg (25-35) Mean Corpuscular Hemoglobin Concent 33g/dL (31-37) Red Cell Distribution Width 14.0% (11.5-14.5) Platelet Count 168x10^3/uL (140-400) Neutrophils (%) (Auto) 35% (31-73) Lymphocytes (%) (Auto) 49% (24-48) Monocytes (%) (Auto) 11% (0-9) Eosinophils (%) (Auto) 4% (0-3) Basophils (%) (Auto) 1% (0-3) Neutrophils # (Auto) 2.0x10^3uL (1.8-7.7) Lymphocytes # (Auto) 2.8x10^3/uL (1.0-4.8) Monocytes # (Auto) 0.6x10^3/uL (0.0-1.1) Eosinophils # (Auto) 0.2x10^3/uL (0.0-0.7) Basophils # (Auto) 0.1x10^3/uL (0.0-0.2) Sodium Level 140mmol/L (136-145) Potassium Level 4.3mmol/L (3.5-5.1) Chloride Level 108mmol/L (98-107) Carbon Dioxide Level 22mmol/L (21-32) Anion Gap 10 (6-14) Blood Urea Nitrogen 2mg/dL (8-26) Creatinine 0.8mg/dL (0.7-1.3) Estimated GFR (Cockcroft-Gault) 120.1 BUN/Creatinine Ratio 3 (6-20) Glucose Level 71mg/dL (70-99) Calcium Level 7.5mg/dL (8.5-10.1) Magnesium Level 1.1mg/dL (1.8-2.4) Total Bilirubin 0.9mg/dL (0.2-1.0) Aspartate Amino Transf (AST/SGOT) 60U/L (15-37) Alanine Aminotransferase (ALT/SGPT) 17U/L (16-63) Alkaline Phosphatase 103U/L (46-116) Total Protein 5.8g/dL (6.4-8.2) Albumin 1.7g/dL (3.4-5.0) Albumin/Globulin Ratio 0.4 (1.0-1.7) Medications Current Medications Haloperidol Lactate (Haldol) 5 mg PRN Q2HRS PRN IVP AGITATION Last administered on 05/31/16 16:07; Start 05/24/16 at 14:30 Ondansetron HCl (Zofran) 4 mg PRN Q6HRS PRN IV NAUSEA/VOMITING; Start 05/24/16 at 14:30; Stop 05/26/16 at 16:06; Status DC Calcium Carbonate/ Glycine (Tums) 500 mg PRN Q3HRS PRN PO HEARTBURN / GAS; Start 05/24/16 at 14:30 Famotidine (Pepcid) 20 mg BID PO Last administered on 06/04/16 22:43; Start at 21:00 Enoxaparin Sodium (Lovenox 40mg Syringe) 80 mg BID SQ ; Start 05/24/16 at 21:00; Status UNV Sodium Chloride (Normal Saline Flush) 3 ml QSHIFT PRN IV AFTER MEDS AND BLOOD DRAWS Last administered on 05/31/16 21:44; Start 05/24/16 at 14:30 Acetaminophen/ Hydrocodone Bitart 1 tab 1 tab PRN Q4HRS PRN PO pain Last administered on 06/05/16 07:14; Start 05/24/16 at 14:30 Multivitamins/ Minerals/Thiamine HCl/Sodium Chloride (Infuvite Adult/ Iv Sodium Chloride 0.9% 1000ml Bag) 1,011 ml @ 99.981 mls/ hr DAILY IV Last administered on 05/28/16 09:23; Start 05/24/16 at 15:00; Stop 05/30/16 at 14:59; Status DC Lorazepam (Ativan) 4 mg PRN Q1HR PRN PO For CIWA 8-14 Last administered on 06/04 11:12; Start 05/24/16 at 14:45; Stop 06/04/16 at 15:27; Status DC Lorazepam (Ativan) 8 mg PRN Q1HR PRN PO For CIWA 15 or greater Last administered on 06/02/16 18:13; Start 05/24/16 at 14:45; Stop 06/04/16 at 15:27 ; Status DC Clonidine HCl 0.1 mg 0.1 mg PRN Q1HR PRN PO SBP > 180 or DBP > 100, MRX3; Start 05/24/16 at 14:45 Metronidazole (FLAGYL 500Mmg PREMIX) 100 ml @ 100 mls/hr Q8HRS IV Last administered on 05/28/16 05:39; Start 05/24/16 at 15:00; Stop 05/28/16 at 18:03; Status DC Diphenhydramine HCl (Benadryl) 25 mg PRN Q6HRS PRN IVP ITCHING Last administered on 05/28/16 02:47; Start 05/24/16 at 16:15 Albuterol/ Ipratropium (Duoneb) 3 ml QIDPRN PRN NEB WHEEZING Last administered on 05/27/16 22:53; Start 05/24/16 at 16:15; Stop 05/28/16 at 00:52; Status DC Ondansetron HCl (Zofran) 4 mg PRN Q6HRS PRN IV NAUSEA/VOMITING; Start 05/24/16 at 16:15 Spironolactone (Aldactone) 100 mg DAILY PO Last administered on 06/04/16 09:06 ; Start 05/25/16 at 09:00 Lorazepam (Ativan) 2 mg PRN Q1HR PRN IV For CIWA 8-14 Last administered on 06/01 04:33; Start 05/26/16 at 16:45; Stop 06/04/16 at 15:27; Status DC Lorazepam (Ativan) 4 mg PRN Q1HR PRN IV For CIWA 15 or greater Last administered on 06/01/16 17:00; Start 05/26/16 at 16:45; Stop 06/04/16 at 15:27 ; Status DC Acetaminophen (Tylenol) 650 mg PRN Q6HRS PRN PO MILD PAIN / TEMP Last administered on 05/28/16 01:12; Start 05/28/16 at 01:00 Albuterol Sulfate (Ventolin Neb Soln) 2.5 mg PRN QID PRN NEB WHEEZING Last administered on 06/03/16 03:52; Start 05/28/16 at 00:52 Potassium Chloride (Klor-Con) 20 meq [id number] PO Last administered on 09:06; Start 05/29/16 at 08:00 Potassium Chloride 40 meq 40 meq 1X ONCE PO Last administered on 05/28/16 13: 29; Start 05/28/16 at 12:00; Stop 05/28/16 at 12:01; Status DC Magnesium Sulfate/ Dextrose (Magnesium Sulfate PREMIX 2GM) 50 ml @ 25 mls/hr 1X ONCE IV ; Start 05/28/16 at 12:15; Stop 05/28/16 at 14:14; Status DC Lactulose 20 gm 20 gm BID PO Last administered on 06/04/16 09:06; Start at 12:45; Stop 06/04/16 at 15:27; Status DC Magnesium Sulfate/ Dextrose (Magnesium Sulfate PREMIX 2GM) 50 ml @ 25 mls/hr 1X ONCE IV ; Start 05/28/16 at 13:00; Stop 05/28/16 at 14:59; Status UNV Potassium Chloride (Klor-Con) 20 meq 1X ONCE PO ; Start 05/28/16 at 19:00; Stop 05/28/16 at 19:01; Status UNV Metronidazole (Flagyl) 500 mg Q8HRS PO Last administered on 05/31/16 05:53; Start 05/28/16 at 22:00; Stop 05/31/16 at 10:02; Status DC Quetiapine Fumarate (SEROquel) 25 mg QHS PO Last administered on 06/04/16 22: 43; Start 05/28/16 at 21:00 Vancomycin HCl 125 mg [id number] PO Last administered on 06/04/16 22:43; Start at 10:30 Morphine Sulfate 4 mg PRN Q2HR PRN IV PAIN Last administered on 06/01/16 16:59 ; Start 05/31/16 at 15:45; Stop 06/04/16 at 15:27; Status DC Haloperidol Lactate (Haldol) 5 mg PRN Q8HRS PRN IM ANXIETY / AGITATION Last administered on 06/04/16 15:17; Start 06/02/16 at 18:30 Ascorbic Acid (Vitamin C) 500 mg DAILY PO Last administered on 06/04/16 09:06 ; Start 06/03/16 at 15:00; Stop 06/04/16 at 15:27; Status DC Multivitamins/ Calcium (Thera M Plus) 1 tab DAILY PO Last administered on 09:07; Start 06/03/16 at 15:00 Lactulose 20 gm DAILY PO ; Start 06/05/16 at 09:00 Lactobacillus Acidophilus (Bacid, Jacquie-Bid) 1 tab TIDWMEALS PO Last administered on 06/04/16 17:50; Start 06/04/16 at 17:30 Active Scripts Active Ativan (Lorazepam) 1 Mg Tablet 1 Mg PO DAILY [Vancomycin Hcl] 125 MG/2.5 ML Solution 125 Mg PO [id number] Lortab 7.5-325 mg Tablet (Hydrocodone/Acetaminophen) 1 Each Tablet 1 Tab PO PRN Q6HRS PRN Reported Klor-Con M20 (Potassium Chloride) 20 Meq Tab.er.prt 20 Meq PO BID Lisinopril 40 Mg Tablet 40 Mg PO DAILY Vitals/I & O Vital Sign - Last 24 Hours 06/04/16 06/04/16 06/04/16 06/04/16 11:05 11:12 15:00 18:41 Temp 98.0 97.8 98.0 97.8 Pulse 109 114 Resp 20 18 22 18 B/P 116/88 111/86 Pulse Ox 97 96 O2 Delivery Room Air Room Air Room Air Room Air 06/04/16 06/04/16 06/04/16 06/04/16 19:30 19:41 19:53 22:42 Temp 98.8 98.8 Pulse 88 Resp 20 20 B/P 110/80 Pulse Ox 96 O2 Delivery Room Air Room Air Room Air Room Air 06/04/16 06/05/16 06/05/16 06/05/16 23:00 02:48 03:00 03:48 Temp 98.6 98.1 98.6 98.1 Pulse 101 84 Resp 18 20 16 20 B/P 114/76 91/61 Pulse Ox 94 95 O2 Delivery Room Air Room Air Room Air 06/05/16 06/05/16 07:00 07:14 Temp 98.2 98.2 Pulse 97 Resp 18 20 B/P 107/66 Pulse Ox 96 O2 Delivery Room Air Room Air Intake and Output 06/04/16 06/04/16 06/05/16 15:00 23:00 07:00 Intake Total 750 ml 660 ml 30 ml Output Total 375 ml 800 ml 300 ml Balance 375 ml -140 ml -270 ml MARIZA SANTIZO MD Jun 05, 2016 08:34
[2016-06-05] MEDS: VANCOMYCIN 125 MG/2.5 ML ORAL SOLUTION. PO SCH (09:00)
[2016-06-05] MEDS: SPIRONOLACTONE 25 MG TABLET PO SCH (09:00)
[2016-06-05] MEDS ORDERED: LACTULOSE 20 GM/30 ML SOLUTION. PO SCH (09:00)
[2016-06-05] MEDS: MULTIVITAMIN with MINERAL TABLET. PO SCH (09:00)
[2016-06-05] MEDS: FAMOTIDINE 20 MG TABLET. PO SCH (09:00)
[2016-06-05 10:49] VITALS: BP 103/74
--- NOTE | 2016-06-05 13:01 | PDOC ---
Objective: Objective: Per RN - left AMA about 5 min before we came by. Vital Signs: Vital Signs Date Time Temp Pulse Resp B/P Pulse Ox O2 Delivery O2 Flow Rate FiO2 06/05/16 12:45 18 Room Air 06/05/16 10:49 98.2 105 103/74 93 98.2 A/P: Alcoholic liver disease w/ dementia C.diff -- Left AMA. BASILIO RODRIGUEZ Jun 05, 2016 13:01
--- NOTE | 2016-06-08 00:26 | DS ---
DATE OF DISCHARGE: 06/05/2016 CHIEF COMPLAINT: Alcohol withdrawal, C. diff colitis, alcoholic cirrhosis. HOSPITAL COURSE: The patient is a 56-year-old, gentleman, who was transferred from [facility] for multiple medical problems including alcoholic cirrhosis with massive ascites, C. diff colitis, as well as alcohol withdrawal. He initially was admitted to the ICU, but could be transferred to the medical floor within a day. He was treated for C. diff with p.o. vancomycin with good results. Alcohol withdrawal was addressed with CIWA protocol. Ativan was weaned off slowly. For his massive ascites secondary to alcoholic cirrhosis, he had received a paracentesis at [facility] prior to transfer. Fluid accumulation was slow. He was slated to go to rehab secondary to gait instability, attributed to Wernicke-Korsakoff syndrome. However, the patient declined transfer to SNF outright. He insisted on going home and left AMA on the morning of the . Discharge date was June 05. DISCHARGE CONDITION: AMA DISCHARGE DIAGNOSES: Alcohol withdrawal, alcoholic cirrhosis, and C. diff colitis. DISCHARGE MEDICATIONS: The patient left before receiving instructions. MARIZA SANTIZO MD DR: VANDANA/nts JOB#: [id number] / [id number] MOHIT
== END 2016-06-05 12:30 | disposition left against medical advice (07) | DRG 371 ==
LOC: 1 WEST ICU 13:44 → 5 SOUTH 05-25 17:32
PROVIDERS: ADMIT Internal Medicine; ATTEND Internal Medicine
DX: A04.7 Enterocolitis due to Clostridium difficile (principal); E43 Unspecified severe protein-calorie malnutrition; F10.239 Alcohol dependence with withdrawal, unspecified; D61.818 Other pancytopenia; R65.10 Systemic inflammatory response syndrome (SIRS) of non-infectious origin without acute organ dysfunction; K70.10 Alcoholic hepatitis without ascites; K70.31 Alcoholic cirrhosis of liver with ascites; D53.9 Nutritional anemia, unspecified; F03.90 Unspecified dementia, unspecified severity, without behavioral disturbance, psychotic disturbance, mood disturbance, and anxiety; F32.9 Major depressive disorder, single episode, unspecified; M10.9 Gout, unspecified; M19.90 Unspecified osteoarthritis, unspecified site; K76.0 Fatty (change of) liver, not elsewhere classified; I10 Essential (primary) hypertension; J44.9 Chronic obstructive pulmonary disease, unspecified; J45.909 Unspecified asthma, uncomplicated; K72.90 Hepatic failure, unspecified without coma; Z68.22 Body mass index [BMI] 22.0-22.9, adult; Z88.0 Allergy status to penicillin; Z88.2 Allergy status to sulfonamides; Z72.0 Tobacco use; Z82.49 Family history of ischemic heart disease and other diseases of the circulatory system; Z51.5 Encounter for palliative care
CPT/HCPCS: 36415; 73030; 80053; 82607; 82746; 83735; 85007; 85027; 85610; 94250; 94640; J1200; J1630; J2060; J2270; J3490; J7030; J7620; 97116; 97530